=== PATIENT | female | born 1950 | race Caucasian/White ===

== ENCOUNTER 2020-06-20 06:10 | Outpatient (REF) | payer MEDICARE, SELFPAY | END 2020-06-20 06:11 | disposition home or self-care (01) | LOC: HO.LAB 06:10 | PROVIDERS: Visit Provider Internal Medicine | DX: Z20.828 Contact with and (suspected) exposure to other viral communicable diseases (principal) | CPT/HCPCS: C9803; U0003 ==

== ENCOUNTER 2020-11-19 16:26 | Outpatient (REF) | payer MEDICARE, SELFPAY ==
[2020-11-19 16:29] LABS: MANUAL DIFF FLAG NO
[2020-11-19 16:49] LABS: Basophils Percent Auto 0.6 % (0-2); Eosinophils Absolute Auto 0.1 X10*3/uL (0.0-0.4); Eosinophils Percent Auto 2.1 % (0-4); Hematocrit 39.5 % (37-47); Hemoglobin 13.1 g/dl (12.0-16.0); Imm Gran Abs Auto 0.02 X10*3/uL (0.00-0.03); Imm Gran Pct Auto 0.3 % (0.0-0.4); Lymphocytes Absolute Auto 2.1 X10*3/uL (1.2-4.9); Lymphocytes Percent Auto 30.5 % (20-40); Mean Corpuscular HGB Conc 33.2 g/dl (31.0-35.0); Mean Corpuscular Hemoglobin 30.4 pg (27.0-33.0); Mean Corpuscular Volume 91.6 fL (80-98); Mean Platelet Volume 9.9 fL (9.4-12.3); Monocytes Absolute Auto 0.5 X10*3/uL (0.1-1.2); Neutrophils Absolute Auto 3.9 X10*3/uL (2.0-8.3); Neutrophils Percent Auto 58.5 % (45-73); Platelet Count 275 X10*3/uL (160-400); Red Blood Count 4.31 X10*6/uL (4.20-5.50); White Blood Count 6.7 X10*3/uL (4.8-10.8)
[2020-11-19 16:57] LABS: Glucose Urine UA NEG (NEG); Leukocyte Esterase Urine NEG (NEG); Nitrite Urine NEG (NEG); Urine Blood NEG (NEG); Urine Ketones NEG (NEG); Urine Protein NEG (NEG-TRACE)
[2020-11-19 17:00] LABS: Appearance Urine CLEAR; Color Urine YELLOW
[2020-11-19 17:20] LABS: Alanine Aminotransferase 16 U/L (0-31); Albumin Level 4.5 g/dL (3.5-5.0); Alkaline Phosphatase 83 U/L (39-117); Anion Gap 14 (12-20); Aspartate Amino Transferase 22 U/L (5-31); Bilirubin Total 0.5 mg/dL (0.0-1.0); Blood Urea Nitrogen 18 mg/dL (9-16); Calcium 9.4 mg/dL (8.4-10.2); Carbon Dioxide 28 mmol/L (22-29); Chloride 100 mmol/L (96-108); Cholesterol 238 mg/dL; Estimated Glomerular Filt Rate > 60; Glucose Fasting 134 mg/dL (60-99); HDL Cholesterol 87 mg/dL; LDL Cholesterol Calculated 119 mg/dl; Sodium 139 mmol/L (135-145); Triglycerides 163 mg/dL
== END 2020-11-19 16:27 | disposition home or self-care (01) ==
LOC: HO.LNP 16:26
PROVIDERS: Visit Provider Internal Medicine
DX: Z00.00 Encounter for general adult medical examination without abnormal findings (principal); I10 Essential (primary) hypertension
CPT/HCPCS: 80053; 80061; 81003; 85025

== ENCOUNTER 2020-12-20 14:49 | Outpatient (REF) | payer MEDICARE, SELFPAY ==
[2020-12-20 15:28] LABS: Potassium 3.4 mmol/L (3.3-5.1)
== END 2020-12-20 14:50 | disposition home or self-care (01) ==
LOC: HO.LNP 14:49
PROVIDERS: Visit Provider Internal Medicine
DX: E87.6 Hypokalemia (principal)
CPT/HCPCS: 84132

== ENCOUNTER 2021-02-25 10:17 | Outpatient (REF) | payer MEDICARE, SELFPAY ==
[2021-02-25 11:56] LABS: Potassium 3.8 mmol/L (3.3-5.1)
== END 2021-02-25 10:18 | disposition home or self-care (01) ==
LOC: HO.LNP 10:17
PROVIDERS: Visit Provider Internal Medicine
DX: E87.6 Hypokalemia (principal)
CPT/HCPCS: 84132

== ENCOUNTER 2021-03-27 10:19 | Outpatient (REF) | payer MEDICARE, SELFPAY ==
[2021-03-27 10:35] LABS: Potassium 3.9 mmol/L (3.3-5.1)
== END 2021-03-27 10:20 | disposition home or self-care (01) ==
LOC: HO.LNP 10:19
PROVIDERS: Visit Provider Internal Medicine
DX: E87.6 Hypokalemia (principal)
CPT/HCPCS: 84132

== ENCOUNTER 2021-09-18 10:22 | Outpatient (REF) | payer MEDICARE, SELFPAY ==
[2021-09-18 10:26] LABS: MANUAL DIFF FLAG NO
[2021-09-18 11:35] LABS: Appearance Urine CLEAR; Color Urine YELLOW; Glucose Urine UA NEG (NEG); Leukocyte Esterase Urine NEG (NEG); Nitrite Urine NEG (NEG); PH 7.5 (5.0-8.0); Specific Gravity - Urine 1.015 (1.005-1.025); Urine Blood NEG (NEG); Urine Ketones NEG (NEG); Urine Protein NEG (NEG-TRACE)
[2021-09-18 11:42] LABS: Basophils Absolute Auto 0.1 X10*3/uL (0.0-0.2); Basophils Percent Auto 1.1 % (0-2); Eosinophils Absolute Auto 0.1 X10*3/uL (0.0-0.4); Eosinophils Percent Auto 2.2 % (0-4); Hematocrit 39.1 % (37.0-47.0); Hemoglobin 12.8 g/dl (12.0-16.0); Imm Gran Abs Auto 0.01 X10*3/uL (0.00-0.03); Imm Gran Pct Auto 0.2 % (0.0-0.4); Lymphocytes Absolute Auto 1.6 X10*3/uL (1.2-4.9); Lymphocytes Percent Auto 34.9 % (20-40); Mean Corpuscular HGB Conc 32.7 g/dl (31.0-35.0); Mean Corpuscular Hemoglobin 30.7 pg (27.0-33.0); Mean Corpuscular Volume 93.8 fL (80.0-98.0); Mean Platelet Volume 10.5 fL (9.4-12.3); Monocytes Absolute Auto 0.5 X10*3/uL (0.1-1.2); Monocytes Percent Auto 10.1 % (2-11); Neutrophils Absolute Auto 2.3 x10*3/uL (2.0-8.3); Neutrophils Percent Auto 51.5 % (45-73); Platelet Count 236 X10*3/uL (160-400); Red Blood Count 4.17 X10*6/uL (4.20-5.50); White Blood Count 4.6 X10*3/uL (4.8-10.8)
[2021-09-18 11:51] LABS: Alanine Aminotransferase 18 U/L (0-31); Alkaline Phosphatase 77 U/L (39-117); Anion Gap 11 (12-20); Aspartate Amino Transferase 19 U/L (5-31); Bilirubin Total 0.7 mg/dL (0.0-1.0); Blood Urea Nitrogen 29 mg/dL (9-16); Calcium 9.1 mg/dL (8.4-10.2); Carbon Dioxide 29 mmol/L (22-29); Chloride 104 mmol/L (96-108); Cholesterol 217 mg/dL; Estimated Glomerular Filt Rate > 60; Glucose Random 98 mg/dL (60-115); HDL Cholesterol 87 mg/dL; LDL Cholesterol Calculated 121 mg/dl; Potassium 4.6 mmol/L (3.3-5.1); Sodium 139 mmol/L (135-145); Total Protein 6.6 g/dL (6.5-8.0); Triglycerides 45 mg/dL
== END 2021-09-18 10:23 | disposition home or self-care (01) ==
LOC: HO.LNP 10:22
PROVIDERS: Visit Provider Internal Medicine
DX: Z00.00 Encounter for general adult medical examination without abnormal findings (principal); I10 Essential (primary) hypertension
CPT/HCPCS: 80053; 80061; 81003; 85025

== ENCOUNTER 2021-10-05 06:12 | Emergency (ER) | payer MEDICARE, SELFPAY ==
[2021-10-05 06:18] VITALS: BP 150/80; PULSE 80; RESP 14; TEMP 36.3; O2SAT 99; BMI 25.2
--- NOTE | 2021-10-05 07:49 | ED.EYEPROB ---
HPI - Eye Problem General Chief complaint: Eye Problems Stated complaint: Eye Issue Time Seen by Provider: 10/05/21 07:47 Source: patient Mode of arrival: ambulatory Limitations: no limitations History of Present Illness HPI Narrative: 71-year-old female came in for evaluation of spot of blood in the left eye. A friend noticed blood spot in the white part of her left eye, otherwise no visual blurriness, no double vision, no left eye pain, no fever, no chills, no recent trauma to the left eye, no sneezing, no coughing. Patient declined using any anticoagulation only take baby aspirin a day. Do not use contact length. Related Data Allergies Allergy/AdvReac Type Severity Reaction Status Date / Time No Known Allergies Allergy Verified 10/05/21 07:48 Review of Systems Review of Systems: All other systems are reviewed and are negative Constitutional: Reports as per HPI and Reports no additional constitutional complaints Eyes: Reports as per HPI and Reports no additional eye complaints Reports system reviewed and no additional complaints, except as documented Cardiovascular: Reports as per HPI and Reports no additional cardiovascular complaints Respiratory: Reports as per HPI and Reports no additional respiratory complaints Gastrointestinal: Reports as per HPI and Reports no additional gastrointestinal complaints Genitourinary: Reports no additional female genitourinary complaints Musculoskeletal: Reports no additional musculoskeletal complaints Skin/Breast: Reports system reviewed and no additional complaints, except as docu Psychiatric: Reports no additional psychiatric complaints Endocrine: Reports no additional endocrine complaints Hematologic/Lymphatic: Reports no additional hematologic/lymphatic complaints Allergic/Immunologic: Reports no additional allergic/immunologic complaints Reports system reviewed and no additional complaints, except as documented and Reports Abnormal speech present [facility] Past Medical History Surgical History History of hemorrhoidectomy Social History Social History Advance Directives: No Physical Exam Vital Signs: Vital Signs: Last Vital Signs Temp 97.4 F 10/05/21 06:18 Pulse 80 10/05/21 06:18 Resp 14 10/05/21 06:18 BP 150/80 H 10/05/21 06:18 Pulse Ox 99 10/05/21 06:18 BMI result Body Mass Index 25.2 Vital signs have been reviewed as appeared to be correct. Blood pressure normal. Heart rate normal. Respiration rate normal. Temperature normal. Oxygen saturation normal. Appearance: Alert. Oriented X3. No acute distress. Head: Normal external exam. Normocephalic. Atraumatic. No Hadley signs noted. No raccoon eyes noted Eyes: PERRLA. EOMI. Left eye with subconjunctival hemorrhage on the nasal side, left eye IOP is 12. Visual acuity on the left is 20/25. Right visual acuity 20/20. ENT: TM's Normal. Pharynx normal. Uvula midline. Moist mucous membranes. No trismus noted. No drooling noted. No muffled voice noted. Neck: Normal inspection. Neck supple. FROM. No adenopathy. Thyroid Normal. No meningeal signs. No neck mass noted. CVS: Normal heart rate and rhythm. Heart sound normal. No murmurs noted. Pulses normal throughout. Respiratory: No respiratory distress. Painless inspiration. Breath sounds normal. No wheezes/rales/rhonchi noted. Chest nontender. No accessory muscle usage noted or decreased air movement noted. Abdomen: Soft and nontender. Bowel sounds normal in all 4 quadrants. No distention noted. No organomegaly noted. No visible injury noted. Back: No CVA tenderness. Full range of motion noted. Skin: Skin warm and dry. Normal skin color. Normal skin turgor. No rashes/lesions/lacerations noted. Extremities: No lower extremity edema. Extremities exhibit normal range of motion. Extremities nontender. Neuro: Oriented X 3. Cranial nerve exam: II-XII are grossly intact No motor deficit. No sensory deficit. Reflexes normal. Course Course Course Narrative: Assessment and plan. 71-year-old female came in with left eye subconjunctival hemorrhage, patient is asymptomatic with normal visual acuity. Will reassure and discharged. Discharge Plan Discharge Clinical Impression: Subconjunctival hemorrhage Patient Disposition: Home, Self-Care Instructions: Subconjunctival Hemorrhage (ED) Referrals: Aneesh Montesinos MD [Primary Care Provider] -
[2021-10-05 07:55] VITALS: BP 156/88; PULSE 63; RESP 19; TEMP 36.8; O2SAT 97
== END 2021-10-05 08:05 | disposition home or self-care (01) ==
PROVIDERS: Emergency Provider Emergency Medicine; PCP Internal Medicine
DX: H11.32 Conjunctival hemorrhage, left eye (principal)
CPT/HCPCS: 99283; 99284

== ENCOUNTER 2021-11-25 10:25 | Outpatient (REF) | payer MEDICARE, SELFPAY ==
[2021-11-25 11:34] LABS: Blood Urea Nitrogen 18 mg/dL (9-16); Estimated Glomerular Filt Rate > 60
== END 2021-11-25 10:26 | disposition home or self-care (01) ==
LOC: HO.LNP 10:25
PROVIDERS: PCP Internal Medicine; Visit Provider Internal Medicine
DX: R79.9 Abnormal finding of blood chemistry, unspecified (principal)
CPT/HCPCS: 82565; 84520

== ENCOUNTER 2021-12-25 14:13 | Outpatient (REF) | payer MEDICARE, SELFPAY ==
--- NOTE | ~2021-12-25 | MM_ITS ---
EXAMINATION: MM SCREENING DIGITAL BREAST TOMOSYNTHESIS, BILATERAL CLINICAL INFORMATION: Screening. Asymptomatic. The lifetime risk of breast cancer based on the Tyrer-Cuzick Model is 3%. COMPARISON: Outside mammography: 12/08/2019, 09/14/2018, 09/13/2017 ([facility], [place], [place]). TECHNIQUE: Digital breast tomosynthesis is performed in both the craniocaudal and mediolateral oblique views along with computer-aided detection (CAD). Synthesized 2D images are generated from the tomosynthesis. FINDINGS: There are scattered areas of fibroglandular density (ACR BI-RADS breast composition Category b). There are no significant masses, abnormal calcifications, or other abnormalities. Parenchymal pattern is similar to prior outside exams. No developing density. Skin contours are smooth. MM/MM tomosynthesis screening BI IMPRESSION: No mammographic evidence of malignancy. ASSESSMENT: BI-RADS 1: Negative RECOMMENDATION: Routine annual mammography screening. This patient's information was entered into a reminder system with a target due date for their next mammogram.
== END 2021-12-25 14:14 | disposition home or self-care (01) ==
LOC: HO.MAMMO 14:13
PROVIDERS: PCP Internal Medicine; Visit Provider Internal Medicine
DX: Z12.31 Encounter for screening mammogram for malignant neoplasm of breast (principal)
CPT/HCPCS: 77063; 77067

== ENCOUNTER 2022-01-20 09:11 | Outpatient (REF) | payer MEDICARE, SELFPAY ==
--- NOTE | ~2022-01-20 | XR_ITS ---
EXAMINATION: XR CHEST CLINICAL INFORMATION: COVID-19 COMPARISON: None. TECHNIQUE: 2 views of the chest were obtained. FINDINGS: Clear lungs. No airspace consolidation or groundglass opacity or effusion. No hyperinflation. The heart is normal in size. The hilar and mediastinal contours and bony structures are unremarkable. XR/XR chest 2V IMPRESSION: Normal study.
== END 2022-01-20 09:12 | disposition home or self-care (01) ==
LOC: HO.XRAY 09:11
PROVIDERS: PCP Internal Medicine; Visit Provider Internal Medicine
DX: U07.1 COVID-19 (principal)
CPT/HCPCS: 71046

== ENCOUNTER 2022-09-24 11:47 | Outpatient (REF) | payer MEDICARE, SELFPAY ==
[2022-09-24 11:50] LABS: MANUAL DIFF FLAG NO
[2022-09-24 12:44] LABS: Basophils Absolute Auto 0.1 X10*3/uL (0.0-0.2); Basophils Percent Auto 1.3 % (0-2); Eosinophils Absolute Auto 0.1 X10*3/uL (0.0-0.4); Eosinophils Percent Auto 2.1 % (0-4); Hematocrit 40.5 % (37.0-47.0); Hemoglobin 13.2 g/dl (12.0-16.0); Imm Gran Abs Auto 0.02 X10*3/uL (0.00-0.03); Imm Gran Pct Auto 0.4 % (0.0-0.4); Lymphocytes Absolute Auto 1.7 X10*3/uL (1.2-4.9); Lymphocytes Percent Auto 32.2 % (20-40); Mean Corpuscular HGB Conc 32.6 g/dl (31.0-35.0); Mean Corpuscular Hemoglobin 30.7 pg (27.0-33.0); Mean Corpuscular Volume 94.2 fL (80.0-98.0); Mean Platelet Volume 10.6 fL (9.4-12.3); Monocytes Absolute Auto 0.5 X10*3/uL (0.1-1.2); Monocytes Percent Auto 9.8 % (2-11); Neutrophils Absolute Auto 2.8 x10*3/uL (2.0-8.3); Neutrophils Percent Auto 54.2 % (45-73); Platelet Count 238 X10*3/uL (160-400); Red Cell Distribution Width 12.3 % (11.0-16.0); White Blood Count 5.2 X10*3/uL (4.8-10.8)
[2022-09-24 13:05] LABS: Appearance Urine Clear; Color Urine Yellow; Glucose Urine UA Negative (Negative); Leukocyte Esterase Urine Negative (Negative); Nitrite Urine Negative (Negative); PH 5.5 (5.0-9.0); Specific Gravity - Urine >= 1.030 (1.005-1.025); Urine Blood Negative (Negative); Urine Ketones Negative (Negative); Urine Protein Negative (Neg-Trace)
[2022-09-24 13:13] LABS: Bacteria Urine None Seen (None Seen); Hyaline Casts Urine 0-2 /LPF (0-2); RBC Urine 0-2 /HPF (0-2); WBC Urine 0-5 /HPF (0-5)
[2022-09-24 13:15] LABS: Alanine Aminotransferase 18 U/L (0-31); Albumin Level 4.2 g/dL (3.5-5.0); Alkaline Phosphatase 104 U/L (39-117); Anion Gap 12 (12-20); Aspartate Amino Transferase 23 U/L (5-31); Bilirubin Total 0.8 mg/dL (0.0-1.0); Blood Urea Nitrogen 23 mg/dL (9-16); Calcium 9.1 mg/dL (8.4-10.2); Carbon Dioxide 28 mmol/L (22-29); Chloride 107 mmol/L (96-108); Cholesterol 264 mg/dL; Estimated Glomerular Filt Rate > 60; Glucose Fasting 102 mg/dL (60-99); HDL Cholesterol 116 mg/dL; LDL Cholesterol Calculated 135 mg/dl; Potassium 4.5 mmol/L (3.3-5.1); Sodium 142 mmol/L (135-145); Total Protein 6.7 g/dL (6.5-8.0); Triglycerides 68 mg/dL
== END 2022-09-24 11:48 | disposition home or self-care (01) ==
LOC: HO.LNP 11:47
PROVIDERS: Visit Provider Internal Medicine
DX: Z00.00 Encounter for general adult medical examination without abnormal findings (principal); I10 Essential (primary) hypertension
CPT/HCPCS: 80053; 80061; 81001; 85025

== ENCOUNTER 2022-11-25 13:33 | Outpatient (REF) | payer MEDICARE, SELFPAY ==
--- NOTE | ~2022-11-25 | XR_ITS ---
EXAMINATION: XR HIP, RIGHT CLINICAL INFORMATION: Pain in right hip Right hip pain, no injury COMPARISON: None available. TECHNIQUE: Two views of the right hip. FINDINGS: The bones are intact. No fracture. Alignment is anatomic. There is mild narrowing of the cartilage space of the right hip. There is subchondral sclerosis in the femoral head. The right SI joint is normal in appearance. There are mild degenerative changes of the pubic symphysis. Multiple calcifications in the pelvis are consistent with phleboliths XR/XR hip RT min 2V IMPRESSION: Mild osteoarthritis of the right hip.
== END 2022-11-25 13:34 | disposition home or self-care (01) ==
LOC: HO.XRAY 13:33
PROVIDERS: PCP Internal Medicine; Visit Provider Internal Medicine
DX: M25.551 Pain in right hip (principal)
CPT/HCPCS: 73502

== ENCOUNTER 2023-01-08 09:11 | Outpatient (REF) | payer MEDICARE, SELFPAY ==
--- NOTE | ~2023-01-08 | XR_ITS ---
EXAMINATION: XR LUMBOSACRAL SPINE CLINICAL INFORMATION: Lower back pain COMPARISON: None available. TECHNIQUE: Three views of the lumbosacral spine. FINDINGS: There is normal lumbar lordosis the vertebral heights, alignment and disc heights are normal. There is mild ventral spondylosis throughout lumbar spine no lytic or sclerotic process seen. The paravertebral soft tissues are normal. XR/XR lumbar spine 2-3V IMPRESSION: Mild ventral spondylosis. No visible acute fracture or dislocation seen.
== END 2023-01-08 09:12 | disposition home or self-care (01) ==
LOC: HO.XRAY 09:11
PROVIDERS: PCP Internal Medicine; Visit Provider Nurse Practitioner Family
DX: M54.50 Low back pain, unspecified (principal); M25.551 Pain in right hip
CPT/HCPCS: 72100

== ENCOUNTER 2023-06-07 09:24 | Day surgery (SDC) | payer MEDICARE, SELFPAY ==
[2023-06-03 13:26] VITALS: BMI 26.5
--- NOTE | 2023-06-04 09:14 | P.CONAN_ITS ---
Documented by User: Fernanda Larson NP 06/04/23 09:14 HPI - Anesthesia Eval Consult details Narrative: 73yo F for Colonoscopy [facility] Past Medical History Medical History Anxiety Depression HTN (hypertension) Surgical History Surgical History Hx of tubal ligation H/O colonoscopy History of hemorrhoidectomy Social History Social History (Updated 06/07/23 @ 10:11 by Laura Zimmerman MD) Alcohol intake: current Substance Use Type: Marijuana Meds Allergies Allergy/AdvReac Type Severity Reaction Status Date / Time No Known Allergies Allergy Verified 10/05/21 07:48 Home Medications Medication Instructions Recorded Confirmed Last Taken Type amlodipine 10 mg tablet 10 mg PO DAILY 06/03/23 06/03/23 Unknown History celecoxib 200 mg capsule 200 mg PO DAILY 06/03/23 06/03/23 Unknown History gabapentin 100 mg capsule 100 mg PO BID 06/03/23 06/03/23 Unknown History hydrochlorothiazide 25 mg tablet 25 mg PO QAM 06/03/23 06/03/23 Unknown History moexipril 15 mg tablet 30 mg PO DAILY 06/03/23 06/03/23 Unknown History paroxetine HCl 10 mg tablet 10 mg PO QAM 06/03/23 06/03/23 Unknown History potassium chloride 20 mEq 20 meq PO BID 06/03/23 06/03/23 Unknown History tablet,extended release(part/cryst) Exam Height,Weight and Vital Signs: Height 5 ft 2.5 in Weight 66.678 kg Assessment and Plan Assessment Anesthesia Assessment: Chart Reviewed Documented by User: Laura Zimmerman MD 06/07/23 10:16 [facility] Active Problems Active Problems: Right lower extremity sciatica and neuropathy Past Medical History Medical History Anxiety Depression HTN (hypertension) Family History Family history of problems with anesthesia: No Surgical History Surgical History Hx of tubal ligation H/O colonoscopy History of hemorrhoidectomy History of Problems with Anesthesia: No Social History Social History (Updated 06/07/23 @ 10:11 by Laura Zimmerman MD) Alcohol intake: current Substance Use Type: Marijuana Meds Allergies Allergy/AdvReac Type Severity Reaction Status Date / Time No Known Allergies Allergy Verified 10/05/21 07:48 Home Medications Medication Instructions Recorded Confirmed Last Taken Type amlodipine 10 mg tablet 10 mg PO DAILY 06/03/23 06/03/23 Unknown History celecoxib 200 mg capsule 200 mg PO DAILY 06/03/23 06/03/23 Unknown History gabapentin 100 mg capsule 100 mg PO BID 06/03/23 06/03/23 Unknown History hydrochlorothiazide 25 mg tablet 25 mg PO QAM 06/03/23 06/03/23 Unknown History moexipril 15 mg tablet 30 mg PO DAILY 06/03/23 06/03/23 Unknown History paroxetine HCl 10 mg tablet 10 mg PO QAM 06/03/23 06/03/23 Unknown History potassium chloride 20 mEq 20 meq PO BID 06/03/23 06/03/23 Unknown History tablet,extended release(part/cryst) Exam Height,Weight and Vital Signs: Height 5 ft 2.5 in Weight 66.678 kg Vital Signs Temp Pulse Resp BP Pulse Ox O2 Del Method 06/07/23 10:05 97.8 F 66 16 130/67 95 Room Air Airway Mallampati Class: II TM Dist: >3cm Neck ROM: Full Loose/Missing/Broken Teeth: No (Denies broken, loose, missing teeth) Heart: RRR Lungs: CTAB Assessment and Plan Assessment Anesthesia Assessment: Anesthesia Plan Discussed Final Anesthetic Review Family History of Problems with Anesthesia: No History of Problems with Anesthesia: No NPO: Yes ASA Class: II Final Preanesthetic Review: No Changes in Pt Med Stat, Meds/Allgs Chart Reviewed, Consent Obtained/Reviewed and Anes Risks/Benef Reviewed Patient Risk: Low Procedure Risk: Low Assessment/Block/Sedation in SS: Assess/Block/Sedation-SS Anesthetic Plan Anesthetic Plan: MAC: Disposition: Standard PACU
[2023-06-07 10:05] VITALS: BP 130/67; PULSE 66; RESP 16; TEMP 36.6; O2SAT 95; BMI 25.5
--- NOTE | 2023-06-07 11:55 | P.BOP_ITS ---
Brief Operative Note Date of Service: 06/07/23 Pre-op diagnosis: Screening Post-op diagnosis: other (Diverticulosis) Procedure: Colonoscopy to the cecum and TI Surgeon: Daniele Palacio MD Anesthesia: MAC Was an Information Technology Coordinator used for this Procedure?: No Estimated blood loss (mL): 0 Pathology: none sent Condition: stable Disposition: PACU
[2023-06-07 11:58] VITALS: BP 114/53; PULSE 71; RESP 16; TEMP 36.5; O2SAT 98
[2023-06-07 12:13] VITALS: BP 123/62; PULSE 58; RESP 16; TEMP 36.5; O2SAT 95
--- NOTE | 2023-06-07 12:19 | OP_ITS ---
DATE OF SERVICE: 06/07/2023 SURGEON: Daniele Palacio MD INDICATIONS: The patient presents for evaluation of colorectal cancer screening. Full consent has been obtained from her for this, including risks of bleeding and perforation. PREOPERATIVE DIAGNOSIS: Colorectal cancer screening. POSTOPERATIVE DIAGNOSIS: PROCEDURE PERFORMED: Colonoscopy to cecum and terminal ileum. ESTIMATED BLOOD LOSS: COMPLICATIONS: ANESTHESIA: Monitored anesthesia care. ASSISTANTS: SPECIMENS: POSTOPERATIVE DIAGNOSES: Colorectal cancer screening, sigmoid diverticulosis, and internal hemorrhoids. DESCRIPTION OF PROCEDURE: The patient was placed in the left lateral decubitus position. The digital rectal exam revealed no abnormalities. The Olympus video pediatric colonoscope was entered into the rectum and advanced easily to the cecum. Once in the cecum, I did identify normal-appearing cecal pouch with appendiceal orifice and a normal-appearing ileocecal valve. The terminal ileum was cannulated and appeared normal. Scope was withdrawn back in the colon. The entire cecum and ileocecal valve appeared normal. The scope was slowly withdrawn assessing all mucosal surfaces carefully. Preparation was excellent. I did not visualize any sign of polyps, colitis, nor angiodysplasia. There was a mild amount of sigmoid diverticulosis. In the rectum, scope was retroflexed visualizing internal hemorrhoids, but no other pathology. The rectal mucosa appeared normal. The scope was straightened and withdrawn from the patient. She tolerated the procedure well and was returned to the recovery area in stable condition. IMPRESSION: 1. Sigmoid diverticulosis. 2. Internal hemorrhoids. PLAN: Given her negative exam, 2 previous negative colonoscopies, and no family history of colon cancer, as well as her age of 72, I do not think she will need any further screening colonoscopies. As such, she will see me again on a p.r.n. basis. I did advise her to certainly call if she has any problems or questions that I can be of assistance with. MD FERNANDO Sher/BLAIR / [phone]
[2023-06-07 12:29] VITALS: BP 120/65; PULSE 64; RESP 16; TEMP 37; O2SAT 98
== END 2023-06-07 12:48 | disposition home or self-care (01) ==
PROVIDERS: PCP Internal Medicine; Visit Provider Internal Medicine
PROC: 0DJD8ZZ Inspection of Lower Intestinal Tract, Via Natural or Artificial Opening Endoscopic (ICD-10-PCS; CPT 45378; principal; 2023-06-07 10:30)
DX: Z12.11 Encounter for screening for malignant neoplasm of colon (principal); K57.30 Diverticulosis of large intestine without perforation or abscess without bleeding; K64.8 Other hemorrhoids; I10 Essential (primary) hypertension; Z98.51 Tubal ligation status; Z79.899 Other long term (current) drug therapy
CPT/HCPCS: G0121; J2704

== ENCOUNTER 2023-11-12 07:10 | Outpatient (REF) | payer MEDICARE, SELFPAY ==
--- NOTE | ~2023-11-12 | MM_ITS ---
EXAMINATION: MM SCREENING DIGITAL BREAST TOMOSYNTHESIS, BILATERAL CLINICAL INFORMATION: Screening. Asymptomatic. COMPARISON: Outside mammography: 12/25/2021, 12/08/2019, 09/14/2018, 09/13/2017 ([facility], [place], [place]). TECHNIQUE: Digital breast tomosynthesis is performed in both the craniocaudal and mediolateral oblique views along with computer-aided detection (CAD). Synthesized 2D images are generated from the tomosynthesis. FINDINGS: There are scattered areas of fibroglandular density (ACR BI-RADS breast composition Category b). There are no suspicious masses, suspicious grouped calcifications, or areas of architectural distortion in either breast. The parenchymal pattern is stable from prior exams. No suspicious skin or axillary abnormalities. MM/MM tomosynthesis screening BI IMPRESSION: No mammographic evidence of malignancy. No significant interval change. ASSESSMENT: BI-RADS BI-RADS 1 - Negative RECOMMENDATION: Routine annual mammography screening. 1 year F/U This examination should not preclude the clinical evaluation of a suspicious palpable abnormality. This patient's information was entered into a reminder system with a target due date for their next mammogram.
== END 2023-11-12 07:11 | disposition home or self-care (01) ==
LOC: HO.MAMMO 07:10
PROVIDERS: PCP Internal Medicine; Visit Provider Internal Medicine
DX: Z12.31 Encounter for screening mammogram for malignant neoplasm of breast (principal)
CPT/HCPCS: 77063; 77067

== ENCOUNTER → 2023-11-12 07:30 | Outpatient (BNV) | payer MEDICARE, SELFPAY | PROVIDERS: PCP Internal Medicine; Visit Provider Radiology Diagnostic Radiology | DX: Z12.31 Encounter for screening mammogram for malignant neoplasm of breast (principal) | CPT/HCPCS: 77063; 77067 ==

== ENCOUNTER 2024-08-18 11:28 | Outpatient (REF) | payer MEDICARE, SELFPAY ==
[2024-08-18 11:31] LABS: MANUAL DIFF FLAG NO
[2024-08-18 11:42] LABS: Basophils Absolute Auto 0.1 X10*3/uL (0.0-0.2); Basophils Percent Auto 1.1 % (0-2); Eosinophils Absolute Auto 0.1 X10*3/uL (0.0-0.4); Hematocrit 39.7 % (37.0-47.0); Hemoglobin 13.6 g/dl (12.0-16.0); Imm Gran Abs Auto 0.01 X10*3/uL (0.00-0.03); Imm Gran Pct Auto 0.2 % (0.0-0.4); Lymphocytes Absolute Auto 1.5 X10*3/uL (1.2-4.9); Lymphocytes Percent Auto 27.9 % (20-40); Mean Corpuscular HGB Conc 34.3 g/dl (31.0-35.0); Mean Corpuscular Hemoglobin 31.6 pg (27.0-33.0); Mean Corpuscular Volume 92.3 fL (80.0-98.0); Mean Platelet Volume 10.3 fL (9.4-12.3); Monocytes Absolute Auto 0.7 X10*3/uL (0.1-1.2); Monocytes Percent Auto 11.9 % (2-11); Neutrophils Absolute Auto 3.1 x10*3/uL (2.0-8.3); Neutrophils Percent Auto 56.9 % (45-73); Platelet Count 224 X10*3/uL (160-400); Red Cell Distribution Width 12.3 % (11.0-16.0); White Blood Count 5.5 X10*3/uL (4.8-10.8)
[2024-08-18 12:04] LABS: Alanine Aminotransferase 19 U/L (0-31); Albumin Level 4.1 g/dL (3.5-5.0); Alkaline Phosphatase 78 U/L (39-117); Anion Gap 10 (12-20); Aspartate Amino Transferase 29 U/L (5-31); Bilirubin Total 0.7 mg/dL (0.0-1.0); Blood Urea Nitrogen 21 mg/dL (9-16); Carbon Dioxide 27 mmol/L (22-29); Chloride 107 mmol/L (96-108); Cholesterol 241 mg/dL (<200); Estimated Glomerular Filt Rate > 60; Glucose Fasting 93 mg/dL (60-99); HDL Cholesterol 97 mg/dL (>40); LDL Cholesterol Calculated 126 mg/dL (<100); Potassium 3.5 mmol/L (3.3-5.1); Sodium 140 mmol/L (135-145); Total Protein 7.4 g/dL (6.5-8.0); Triglycerides 93 mg/dL (<150)
--- OUTSIDE RECORDS SUMMARY | 2024-08-18 13:43 | XMS_ITS | Patient Health Record ---
Author Organization Aneesh Montesinos MD Address [address] [place] [id number] Care Team Providers Care Rn Telemetry Name Role Phone Aneesh Montesinos Primary Care Provider [phone] Allergies No Known Allergies Results Component Value Reference Range Notes MM tomosynthesis screening B I Reviewed date:11/23/2023 12:16:26 PM Interpretation: Performing Lab: Notes/Report: [address] [place] [address] Mammography Report Signed Patient: Destiny Oshea MR#: [id number] : 1950 Acct:[id number] Age/Sex: 73 / F ADM Date: 11/12/23 Loc: HO.MAMMO Attending Dr: Aneesh Montesinos MD Ordering Physician: Aneesh Montesinos MD Results: 1Ne gative Date of Service: 11/12/23 Follow Up: 1 Year From Orig ina Mammogram Procedure(s): MM tomosynthesis screening BI Accession Number(s): [id number] cc: Aneesh Montesinos MD EXAMINATION: MM SCREENING DIGITAL BREAST TOMOSYNTHESIS, BILATERAL CLINICAL INFORMATION: Screening. Asymptomatic. COMPARISON: Outside mammography: 12/25/2021, 12/08/2019, 09/14/2018, 09/13/2017 ([facility], [place], [place]). TECHNIQUE: Digital breast tomosynthesis is performed in both the craniocaudal and mediolateral oblique views along with computer-aided detection (CAD). Synthesized 2D images are generated from the tomosynthesis. FINDINGS: There are scattered areas of fibroglandular density (ACR BI-RADS breast composition Category b). There are no suspicious masses, suspicious grouped calcifications, or areas of architectural distortion in either breast. The parenchymal pattern is stable from prior exams. No suspicious skin or axillary abnormalities. MM/MM tomosynthesis screening BI IMPRESSION: No mammographic evidence of malignancy. No significant interval change. ASSESSMENT: BI-RADS BI-RADS 1 - Negative RECOMMENDATION: Routine annual mammography screening. 1 year F/U This examination should not preclude the clinical evaluation of a suspicious palpable abnormality. This patient's information was entered into a reminder system with a target due date for their next mammogram. Dictated By: Samson Ramos MD Signed By: <Electronically signed by Samson Ramos MD in OV> 11/22/23 1011 DD/ 0735 TD/TT: V Belt Inspector: [place] [address] [place] [address] Mammography Report Signed Patient: Winnie Oshea MR#: [id number] : 1950 Acct:[id number] Age/Sex: 73 / F ADM Date: 11/12/23 Loc: HO.MAMMO Attending Dr: Aneesh Montesinos MD Ordering Physician: Aneesh Montesinos MD Results: 1Ne gative Date of Service: 11/12/23 Follow Up: 1 Year From Orig ina Mammogram Procedure(s): MM tomosynthesis screening BI Accession Number(s): [id number] cc: Aneesh Montesinos MD EXAMINATION: MM SCREENING DIGITAL BREAST TOMOSYNTHESIS, BILATERAL CLINICAL INFORMATION: Screening. Asymptomatic. COMPARISON: Outside mammography: 12/25/2021, 12/08/2019, 09/14/2018, 09/13/2017 ([facility], [place], [place]). TECHNIQUE: Digital breast tomosynthesis is performed in both the craniocaudal and mediolateral oblique views along with computer-aided detection (CAD). Synthesized 2D image s are generated from the tomosynthesis. FINDINGS: There are scattered areas of fibroglandular density (ACR BI-RADS breast composition Category b). There are no suspici ous masses, suspicious grouped calcifications, or areas of architectur al distortion in either breast. The parenchymal pattern is stable fr om prior exams. No suspicious skin or axillary abnormalities. MM/MM tomosynthesis screening BI IMPRESSION: No mammographic evidence of malignancy. No significant interval change. ASSESSMENT: BI-RADS BI-RADS 1 - Negative RECOMMENDATION: Routine annual mammography screening. 1 year F/U This examination mary beth uld not preclude the clinical evaluation of a suspicious palpable abnormality. This patient's information was entered into a reminder system with a target due date for their next mammogram. Dictated By: Samson Ramos MD Signed By: <Electronically signed by Samson Ramos MD in OV> 11/22/23 1011 DD/ 0735 TD/TT: V Belt Inspector: Erika Lenz Panel Fa st (Not yet reviewed by provider) Interpretation: Performing Lab:[address] [id number] Notes/Report: Sodium 140 135-145 mmol/L Potassium 3.5 3.3-5.1 mmol/L Chloride 107 96-108 mmol/L Carbon Dioxide 27 22-29 mmol/L Anion Gap 10 12-20 Blood Urea Nitrogen 21 9-16 mg/dL Creatinine 0.64 0.5-1.4 mg/dL Estimated Glomerular Filt Rate > 60 Chronic Kidney Disease: Estimated GFR < 60 mL/min/1.73m2 Severe Kidney Disease: Estimated GFR < 15 mL/min/1.73m2 Glucose Fasting 93 60-99 mg/dL Calcium 9.0 8.4-10.2 mg/dL Bilirubin Total 0.7 0.0-1.0 mg/dL Aspartate Amino Transferase 29 5-31 U/L Alanine Aminotransferase 19 0-31 U/L Total Protein 7.4 6.5-8.0 g/dL Albumin Level 4.1 3.5-5.0 g/dL Alkaline Phosphatase 78 39-117 U/L Complete Blood Count Auto Di ff Reviewed date:08/18/2024 12:40:10 PM Interpretation: Performing Lab:[address] [id number] Notes/Report: White Blood Count 5.5 4.8-10.8 X10*3/uL Red Blood Count 4.30 4.20-5.50 X10*6/uL Hemoglobin 13.6 12.0-16.0 g/dl Hematocrit 39.7 37.0-47.0 % Mean Corpuscular Volume 92.3 80.0-98.0 fL Mean Corpuscular Hemoglobin 31.6 27.0-33.0 pg Mean Corpuscular HGB Conc 34.3 31.0-35.0 g/dl Red Cell Distribution Width 12.3 11.0-16.0 % Platelet Count 224 160-400 X10*3/uL Mean Platelet Volume 10.3 9.4-12.3 fL Neutrophils Percent Auto 56.9 45-73 % Imm Gran Pct Auto 0.2 0.0-0.4 % Lymphocytes Percent Auto 27.9 20-40 % Monocytes Percent Auto 11.9 2-11 % Eosinophils Percent Auto 2.0 0-4 % Basophils Percent Auto 1.1 0-2 % NRBC Pct Auto 0.0 0.0-0.2 /100WBC Neutrophils Absolute Auto 3.1 2.0-8.3 x10*3/u L Imm Gran Abs Auto 0.01 0.00-0.03 X10*3/uL Lymphocytes Absolute Auto 1.5 1.2-4.9 X10*3/u L Monocytes Absolute Auto 0.7 0.1-1.2 X10*3/uL Eosinophils Absolute Auto 0.1 0.0-0.4 X10*3/u L Basophils Absolute Auto 0.1 0.0-0.2 X10*3/uL NRBC Abs Auto 0.000 0.0-0.012 X10*3/uL Lipid Panel Reviewed date:08/18/2024 12:34:23 PM Interpretation: Performing Lab:[facility], [address] [place] [id number] Notes/Report: Triglycerides 93 <150 mg/dL Desirable Triglyceride: less than 150 mg/dL Borderline High Triglyceride 150-199 mg/dL High Triglyceride: 200-499 mg/dL Very High Triglyceride: greater than or equal to 5OO mg/dL Cholesterol 241 <200 mg/dL Desirable Cholesterol: less than 200 mg/dL Borderline High Cholesterol: 200-239 mg/dL High Cholesterol: greater than 239 mg/dL LDL Cholesterol Calculated 126 <100 mg/dL Desirable LDL: less than 100 mg/dL Near Optimal/Above Optimal LDL: 110-129 mg/dL Borderline High LDL: 130-159 mg/dL High LDL: 160-189 mg/dL Very High LDL: greater than or equal to 190 mg/dL HDL Cholesterol 97 >40 mg/dL Desirable HDL: greater than 40 mg/dL Note: This HDL assay may give artificially low results in patients with liver disease. Reason For Referral Reason loud snorning Diagnosis 1 Loud snoring (R06.83 ) Referral Organization Aneesh Montesinos MD Referring Provider First Name Aneesh Referring Provider Last Name Jaguar Referring Provider Speciality Internal M edicine Referred Provider Sleep Medicine, Serv ices Referred Provider Specialty Sleep Medici ne General Notes , Rosario Fung 09/20/2023 02:52:09 PM EDT > info faxed , Rosario Fung 09/28/2023 10:52:48 AM EDT > info refaxed , Rosario Fung 10/18/2023 09:42:08 AM EDT > left message for a called back , Rosario Fung 10/19/2023 03:39:39 PM EDT > [facility] office [address], Rosario Fung 10/21/2023 11:10:52 AM EDT > info mailed to patient Referral Priority Routine Referral Appointment Date 01/05/2024 Medications Medication SIG (Take, Route, Frequency, Duration) Notes Start Date End Date Status amLODIPine Besylate 10 MG TAKE 1 TABLET BY MOUTH EVERY DAY Orally Active PARoxetine HCl 20 MG take 1tablet by ngoc th every day in the morning Orally Once a day Active Valsartan 160 MG TAKE 1 TABLET BY MOUTH DAILY for 30 Active Potassium Chloride Frida ER 2 0 MEQ TAKE 1 TABLET BY MOUTH TWICE DAILY WITH FOOD for 90 Active hydroCHLOROthiazide 25 MG TAKE 1 TABLET BY MOUTH EVERY DAY IN THE MORNING Active Cyclobenzaprine HCl 10 MG 1 tablet at be dtime as needed Orally Once a day for 30 day(s) Unknown Tylenol 8 Hour Arthritis Bhupinder n 650 MG 2 tablets as needed Orally every 8 hrs Unknown CeleBREX 200 MG 1 capsule with food Orally Once a day for 30 day(s) 12/14/2022 Unknown Immunizations Vaccine Route Administration Date Status Comme nts SARS-COV-2 Pfizer Unknown 09/24/2020 Administered SARS-COV-2 Pfizer Unknown 09/10/2020 Administered Influenza High Dose IM Intramuscular 03/03/2021 Administer ed SARS-COV-2 Moderna Unknown 05/22/2021 Administered Influenza High Dose Unknown 03/30/2022 Administered Influenza High Dose IM Intramuscular 03/23/2023 Administer ed Social History Tobacco Use: Social History Observation Description Date Details (start date - stop date) Never Smoker NA - NA Tobacco Use/Smoking Question Answer Notes Patient is a nonsmoker Additional Findings: Tobacco Non-User Cu rrent non-smoker, currently using no form of tobacco Alcohol Screen Question Answer Notes Did you have a drink contain ing alcohol in the past year? Yes How often did you have a dri nk containing alcohol in the past year? 4 or more times a week (4 points) How many drinks did you have on a typical day when you were drinking in the past year? 1 or 2 drinks (0 point) How often did you have 6 or more drinks on one occasion in the past year? Never (0 point) Points 4 Interpretation Positive Problems Problem Type SNOMED Code ICD Code Onset Dates Problem Status W/U Status Risk Notes Problem 211750279407621 Primary osteoarthritis, right hand (M19.041) Active confirmed Problem 060905073 Lumbar disc disease (M51.9) Active confirmed Problem 87629622 Essential hypertension (I10) Active confirmed Problem 41590771 Dysthymia (F34.1) Active confirmed Problem 15044491 Sciatica of right side (M54.31) Active confirmed Problem 60920110 Peptic ulcer disease (K27.9) Active confirmed Problem 10252580 Uncontrolled hypertension (I10) Active confirmed Problem 13132024 Hip arthritis (M16.10) Active confirmed Problem 257536141 Cervical arthritis (M47.812) Active confirmed Vital Signs Blood pressure diastolic 72 mm Hg 05/25/2024 Height 62.5 in 05/25/2024 Blood pressure systolic 128 mm Hg 05/25/2024 Weight 152 lbs 05/25/2024 BMI 27.36 kg/m2 05/25/2024 Encounters Encounter Location Date Provider Diagnosis Aneesh Montesinos MD [address] [place] [address] Drive [address] [place] [id number] 08/18/2024 Aneesh Montesinos Blood tests for routine general physical examination Z00.00 and Essential hypertension I10 Aneesh Montesinos MD [address] [place] [address] Drive [address] [place] [id number] 08/30/2023 Aneesh Montesinos Dysthymia F34.1 and Hip arthritis M16.10 Aneesh Montesinos MD [address] [place] [id number] 02/24/2024 Aneesh Montesinos Dysthymia F34.1 ; Essential hypertension I10 and Hip arthritis M16.10 Aneesh Montesinos MD [address] [place] [id number] 05/25/2024 Aneesh Montesinos Essential hypertension I10 Aneesh Montesinos MD [address] [place] [id number] 01/13/2024 Aneesh Montesinos MD [address] [place] [id number] 06/22/2024 Aneesh Montesinos Assessments Encounter Date Diagnosis (ICD Code) Assessment Notes Treatment Notes Treatment Clinical Notes Section Notes 08/18/2024 Blood tests for routine general physical examination (ICD-10 - Z00.00) 08/30/2023 Dysthymia (ICD-10 - F34.1) complete 08/30/2023 Hip arthritis (ICD-10 - M16.10) going to have a replacement 02/24/2024 Dysthymia (ICD-10 - F34.1) doing well since hip was replaced 02/24/2024 Essential hypertension (ICD-10 - I10) well controlled 05/25/2024 Essential hypertension (ICD-10 - I10) doing well on meds 08/18/2024 Essential hypertension (ICD-10 - I10) 02/24/2024 Hip arthritis (ICD-10 - M16.10) was replaced and is doing well 05/25/2024 Other patient has never been diagnosed with sleep apnea, has never had a sleep study, and doesn't use a cpap machine Plan Of Treatment Pending Test Test Name Order Date XR CHEST 2 VIEW PA & LAT 01/19/2022 XR GI SERIES 05/21/2023 Comprehensive [place]. Panel Fast UA ClnCatch+Micro w/rflx Cult 08/18/2024 Next Appt Details Provider Name:Aneesh fang, 08/25/2024 08:30:00 AM, [address] [facility], Suite [facility], [place], [place], [phone], Insurance Providers Payer Name Payer Address Payer Phone Subscriber Number Group Number Insured Name Patient Relationship to Insured Coverage Start Date Coverage End Date [facility] are [employer] [address] [address] [place] [address] [id number] Destiny Oshea Self - patient is the insured Medical (General) History Medical History History ICD Code moexital if univasc is an helen inhibitor 06/07/23 colonoscopy, no more required
--- OUTSIDE RECORDS SUMMARY | 2024-08-18 13:43 | XMS_ITS | Patient Health Record ---
Author Organization [facility] Address [address] [place] [address] Care Team Providers Care Heating Unit Mechanic Name Role Phone Jaguar VALENZUELA, Aneesh Primary Care Provider Daniele Ward Unavailable [phone] ALLERGIES No Known Allergies REASON FOR REFERRAL No Information MEDICATIONS Medication SIG (Take, Route, Frequency, Duration) Notes Start Date End Date Status Ibuprofen 800 MG Oral for 30 N ot-Taking Potassium Chloride Frida ER 20 MEQ TAKE 1 TABLET BY MOUTH TWICE DAILY WITH FOOD Oral for 90 Active Moexipril HCl 15 MG TAKE 2 TABLETS BY MOUTH EVERY DAY Oral for 90 Active Gabapentin 100 MG Oral for 30 stopping as of 03/19/23 Active hydroCHLOROthiazide 25 MG TAKE 1 TABLET BY MOUTH EVERY DAY IN THE MORNING Oral for 90 Active amLODIPine Besylate 5 MG TAKE 1 TABLET B Y MOUTH EVERY DAY Oral for 90 Active Celecoxib 200 MG TAKE 1 CAPSULE BY MOUTH EVERY DAY WITH FOOD Oral for 30 stopping as of 03/19/23 Active PARoxetine HCl 20 MG TAKE 1 TABLET BY MOUTH EVERY DAY IN THE MORNING Oral for 60 F341,Unavailab le Active IMMUNIZATIONS Vaccine Route Administration Date Status Comme nts Influenza Unknown 03/10/2022 Administered SOCIAL HISTORY Tobacco Use: Social History Observation Description Date Details (start date - stop date) Never Smoker NA - NA Sex Assigned At : Social History Observation Description Sex Assigned At Unknown Tobacco Use/Smoking Question Answer Notes Patient is a nonsmoker Alcohol Screen Question Answer Notes Did you [...] Never (0 point) Points 4 Interpretation Positive PROBLEMS Problem Type ICD Code Onset Dates Problem Status W/U Status Risk SNOMED Code Notes Problem Colon cancer screening (Z12.11) Active confirmed 653116634 Problem Diverticulosis of large intestine without perforation or abscess without bleeding (K57.30) Active confirmed Diverticul ar disease of colon (060119489) Problem Preprocedural examination (Z01.818) Active confirmed [id number] PLAN OF TREATMENT Future Test Test Name Order Date COLONOSCOPY 03/17/2023 Insurance Providers Payer Name Payer Address Payer Phone Subscriber Number Group Number Insured Name Patient Relationship to Insured Coverage Start Date Coverage End Date [employer] Adv (PPO) [address] [address] [place] [phone] [id number] STEPH MARRERO Self - patient is the insured MEDICAL (GENERAL) HISTORY Medical History History ICD Code HTN Anxiety/depression Denies MS,DM,CVA,Lung disease,renal dise ase Negative colonoscopies at age 52 and age 62 in [place], [place] Back and right hip pain Surgical History Surgery Date(Month/Year) BTL
--- OUTSIDE RECORDS SUMMARY | 2024-08-18 13:43 | XMS_ITS ---
Author Organization Aneesh Montesinos MD Address [address] [place] [phone] Care Team Providers Care Refuse Laborer Name Role Phone Aneesh Montesinos Primary Care Provider [phone] Allergies No Known Allergies REASON FOR VISIT discuss sleep study Medications Medication SIG (Take, Route, Frequency, Duration) Notes Start Date End Date Status Valsartan 160 MG 1 tablet Orally Once a day 01/13/2024 Active amLODIPine Besylate 10 MG TAKE 1 TABLET BY MOUTH EVERY DAY Orally Active Cyclobenzaprine HCl 10 MG 1 tablet at be dtime as needed Orally Once a day for 30 day(s) Unknown Tylenol 8 Hour Arthritis Bhupinder n 650 MG 2 tablets as needed Orally every 8 hrs Unknown CeleBREX 200 MG 1 capsule with food Orally Once a day for 30 day(s) 12/14/2022 Unknown PARoxetine HCl 20 MG take 1tablet by every day in the morning Orally Once a day Active hydroCHLOROthiazide 25 MG TAKE 1 TABLET BY MOUTH EVERY DAY IN THE MORNING Active Potassium Chloride Frida ER 2 0 MEQ TAKE 1 TABLET BY MOUTH TWICE DAILY WITH FOOD for 90 Active Vital Signs Blood pressure systolic 128 mm Hg 05/25/20 24 Blood pressure diastolic 72 mm Hg 024 Height 62.5 in 05/25/2024 Weight 152 lbs 05/25/2024 BMI 27.36 kg/m2 05/25/2024 Encounters Encounter Location Date Provider Diagnosis Aneesh Montesinos MD [address] [place], [place] [phone] 05/25/2024 Aneesh Montesinos Essential hypertension I10 Assessments Encounter Date Diagnosis (ICD Code) Assessment Notes Treatment Notes Treatment Clinical Notes Section Notes 05/25/2024 Essential hypertension (ICD-10 - I10) doing well on meds 05/25/2024 Other patient has never been diagnosed with sleep apnea, has never had a sleep study, and doesn't use a cpap machine Plan Of Treatment Treatment Notes Assessment Notes Essential hypertension doing well on med s Other patient has never be en diagnosed with sleep apnea, has never had a sleep study, and doesn't use a cpap machine Next Appt Details Provider Name:Aneesh Rubio ier, 08/25/2024 08:30:00 AM, [address] [facility], [address], [place], [place], [phone], Progress Notes * Destiny OSHEA LDOB:[birth year] (74 yo F)Acc No.[id number]:05/25/2024 Progress Notes Patient:?AlexandriaDestiny Max Provider:?Aneesh Montesinos MD :1950???Age:74 Y???Sex:Female D ate:05/25/2024 Address: [facility] Subjective: * Chief Complaints: * ???Discuss sleep study * HPI: ???Symptom(s):? patient is a 74 yo female here for follow up of sleep study.. is trying to get health insurance/ patient never had sleep study and was never diagnosed with sleep apnea. * ROS:?General/Constitutional:?Denies?Chills.?Denies?Fatigue.?Denies?Fever.?Denies?Headache.?ENT:?Patient denies?decreased sense of smell , any loss of taste , sore throat.?Denies?Sore throat.?Respiratory:?Denies?Cough.?Denies?Shortness of breath at rest.?Denies?Shortness of breath with exertion.?Gastrointestinal:?Denies?Diarrhea.?Denies?Nausea.?Musculoskeletal:?Patient denies?muscle aches.?Peripheral Vascular:?Patient denies?red and blue toes.? * Medical History:? * Surgical History:? * Hospitalization/Major Diagno stic Procedure:? * Medications:?TakingPotassium Chloride Frida ER 20 MEQ Tablet Extended Release TAKE 1 TABLET BY MOUTH TWICE DAILY WITH FOOD hydroCHLOROthiazide 25 MG Tablet TAKE 1 TABLET BY MOUTH EVERY DAY IN THE MORNING PARoxetine HCl 20 MG Tablet take 1tablet by mouth every day in the morning Orally Once a dayamLODIPine Besylate 10 MG Tablet TAKE 1 TABLET BY MOUTH EVERY DAY Orally Valsartan 160 MG Tablet 1 tablet Orally Once a dayTaking Potassium Chloride Frida ER 20 MEQ Tablet Extended Release TAKE 1 TABLET BY MOUTH TWICE DAILY WITH FOOD Taking hydroCHLOROthiazide 25 MG Tablet TAKE 1 TABLET BY MOUTH EVERY DAY IN THE MORNING Taking PARoxetine HCl 20 MG Tablet take 1tablet by mouth every day in the morning Orally Once a dayTaking amLODIPine Besylate 10 MG Tablet TAKE 1 TABLET BY MOUTH EVERY DAY Orally Taking Valsartan 160 MG Tablet 1 tablet Orally Once a dayDiscontinuedGabapentin 100 MG Capsule 1 capsule Orally twice a dayDiscontinued Gabapentin 100 MG Capsule 1 capsule Orally twice a dayUnknownCeleBREX 200 MG Capsule 1 capsule with food Orally Once a dayTylenol 8 Hour Arthritis Pain 650 MG Tablet Extended Release 2 tablets as needed Orally every 8 hrsCyclobenzaprine HCl 10 MG Tablet 1 tablet at bedtime as needed Orally Once a dayMedication List reviewed and reconciled with the patientUnknown CeleBREX 200 MG Capsule 1 capsule with food Orally Once a dayUnknown Tylenol 8 Hour Arthritis Pain 650 MG Tablet Extended Release 2 tablets as needed Orally every 8 hrsUnknown Cyclobenzaprine HCl 10 MG Tablet 1 tablet at bedtime as needed Orally Once a dayMedication List reviewed and reconciled with the patient * Allergies:?N.K.D.A.yes[Aller gies Verified] Objective: * Vitals:?Ht: 62.5, Wt:152, BM I:27.36, BP:128/72. * Examination: ???General Examination: ?GENERAL APPEARANCE:?well developed, well nourished.?HEAD:?normocephalic.?SKIN:?good turgor.?HEART:?regular rate and rhythm , no murmurs, rubs, gallops.?LUNGS:?no wheezes, rales, rhonchi , good air movement , clear to auscultation bilaterally.? Assessment: * Assessment: 1.?Essential hypertension - I10 (Primary)? Plan: * Treatment: 2.?Others? Notes: patient has never been diagnosed with sleep apnea, has never had a sleep study, and doesn't use a cpap machine?? * Procedure Codes:? * * Sign off status: Completed true * Provider:?Aneesh Montesinos MD Date:?1 07/26/2023 Generated for Ely nix/Rachel/eTransmitting on:?08/18/2024 01:43 PM EST History and Physical Notes * HPI (History of Present Illness) Category Sub-Category Detail Notes Category Not es Symptom(s) patient is a 74 yo female here for follow up of sleep study.. is trying to get health insurance/ patient never had sleep study and was never diagnosed with sleep apnea. Examination Category Sub-Category Detail Notes Category Not es General Examination GENERAL APPEARANCE: well developed , well nourished HEAD: normocephalic HEART: regular rate and rhy thm , no murmurs, rubs, gallops LUNGS: no wheezes, rales, r honchi , good air movement , clear to auscultation bilaterally SKIN: good turgor
--- OUTSIDE RECORDS SUMMARY | 2024-08-18 13:43 | XMS_ITS ---
Author Organization Aneesh Montesinos MD Address [address] [facility] [address] [place] [phone] Care Team Providers Care Rag Cutting Machine Feeder Name Role Phone Aneesh Montesinos Primary Care Provider REASON FOR VISIT refill Encounters Encounter Location Date Provider Diagnosis Aneesh Montesinos MD [address] [facility] [address] [place], [place] [phone] 06/22/2024 Aneesh Montesinos Plan Of Treatment Next Appt Details Provider Name:Aneesh Rubio ier, 08/25/2024 08:30:00 AM, [address] [place] [address], [address], [place], [place], [phone], Progress Notes * Destiny OSHEA LDOB:[birth year] (74 yo F)Acc No.[id number]:06/22/2024 Patient:?Destiny Oshea :1950???Age:74 Y???Sex:Female Address:[address] [place], [address] * true * Date:? Generated for Printi boyd/Rachel/eTransmitting on:?08/18/2024 01:43 PM EST
--- OUTSIDE RECORDS SUMMARY | 2024-08-18 13:43 | XMS_ITS ---
Author Organization [facility] Address [address] [place] [address] Care Team Providers Care Archives Specialist Name Role Phone Aneesh Montesinos MD Primary Care Provider Daniele Ward [phone] REASON FOR VISIT screening PROBLEMS Problem Type ICD Code Onset Dates Problem Status W/U Status Risk SNOMED Code Notes Problem Diverticulosis of large intestine without perforation or abscess without bleeding (K57.30) Active confirmed Diverticul ar disease of colon (358745004) Encounters Encounter Location Date Provider Diagnosis [facility] [address] [place] [id number] 06/07/2023 Daniele Palacio Encounter for scre ening colonoscopy Z12.11 ; Diverticulosis of large intestine without perforation or abscess without bleeding K57.30 and Internal hemorrhoids K64.8 ASSESSMENTS Encounter Date Diagnosis Assessment Notes Treatment Notes Treatment Clinical Notes 06/07/2023 Encounter for screening colonoscopy (ICD-10 - Z12.11) 06/07/2023 Diverticulosis of large intestine without perforation or abscess without bleeding (ICD-10 - K57.30) 06/07/2023 Internal hemorrhoids (ICD-10 - K64.8) PLAN OF TREATMENT No Information
--- OUTSIDE RECORDS SUMMARY | 2024-08-18 13:44 | XMS_ITS ---
Author Organization [facility] Address [address] [facility] [place] [address] Care Team Providers Care Professor In Family Studies Name Role Phone Aneesh Montesinos MD Primary Care Provider Daniele Ward Unavailable [phone] ALLERGIES No Known Allergies REASON FOR VISIT Patient presents today for a COLON SCREENING MEDICATIONS Medication SIG (Take, Route, Frequency, Duration) [...] MORNING Oral for 60 F341,Unavailab le Active hydroCHLOROthiazide 25 MG TAKE 1 TABLET BY MOUTH EVERY DAY IN THE MORNING Oral for 90 Active amLODIPine Besylate 5 MG TAKE 1 TABLET B Y MOUTH EVERY DAY Oral for 90 Active Celecoxib 200 MG TAKE 1 CAPSULE BY MOUTH EVERY DAY WITH FOOD Oral for 30 stopping as of 03/19/23 Active SOCIAL HISTORY Tobacco Use: Social History Observation [...] Problem Colon cancer screening (Z12.11) Active confirmed [id number] Problem Preprocedural examination (Z01.818) Active confirmed [id number] VITAL SIGNS Temperature 96.9 degrees Fahrenheit 03/17/20 23 Blood pressure systolic 000 mm Hg 03/17/20 23 Blood pressure diastolic 00 mm Hg 023 Height 5 ft 2.5 in in 03/17/2023 Weight 147 lbs 03/17/2023 BMI 26.46 kg/m2 03/17/2023 Encounters Encounter Location Date Provider Diagnosis [facility] [address] [place] [address] 03/17/2023 Daniele Palacio Colon cancer screeni ng Z12.11 and Preprocedural examination Z01.818 ASSESSMENTS Encounter Date Diagnosis Assessment Notes Treatment Notes Treatment Clinical Notes 03/17/2023 Colon cancer screening (ICD-10 - Z12.11) Do not take the Hydrochlorothiazide or Potassium the day before nor on the day of the colonoscopy 03/17/2023 Preprocedural examination (ICD-10 - Z01.818) PLAN OF TREATMENT Treatment Notes Assessment Notes Colon cancer screening Do not take the H ydrochlorothiazide or Potassium the day before nor on the day of the colonoscopy Future Test Test Name Order Date COLONOSCOPY 03/17/2023 Next Appt Details Follow Up: prn, Reason: Progress Notes * Examination Category Sub-Category Detail Notes General Examination GENERAL APPEARANCE: pleasant , well nourished, well developed, in no acute distress HEAD: EYES: sclera non-icteric EARS: NOSE: THROAT: NECK/THYROID: no cervical lymphade nopathy, neck supple HEART: S1, S2 normal CHEST: LUNGS: clear to auscultatio n bilaterally ABDOMEN: normal bowel sounds, no guarding or rigidity, no guarding or rigidity, no masses palpable, soft, nontender, nondistended NEUROLOGIC: alert and oriented SKIN: nonjaundiced, no spi albaro angiomata EXTREMITIES: no edema PERIPHERAL PULSES: BACK: BREASTS: MUSCULOSKELETAL: MALE GENITOURINARY: LYMPH NODES: RECTAL EXAM: FEMALE GENITOURINARY: ORAL CAVITY: mucosa moist
--- OUTSIDE RECORDS SUMMARY | 2024-08-18 13:44 | XMS_ITS | Patient Health Record ---
Author Organization [facility] [place] Address [address] [place] [address] Care Team Providers Care Gas Well Pumper Name Role Phone Aneesh Montesinos MD Primary Care Provider Lexy Medina Unavailable [phone] Reason For Referral No Information Social History Tobacco Use: Social History Observation Description Date Details (start date - stop date) Former Smoker NA - NA Tobacco use other than smoking: Question Answer Notes Are you an other tobacco user? No Tobacco Control (Standard) Question Answer Notes Tobacco use: Former smoker Additional Findings: Tobacco non-user Current no nsmoker AUDIT-C (Standard) Question Answer Notes Did you have a drink contain ing alcohol in the past year? Yes How often did you have six o r more drinks on one occasion in the past year? Never (0 point) How many drinks did you have on a typical day when you were drinking in the past year? 1 or 2 drinks (0 point) How often did you have a dri nk containing alcohol in the past year? Never (0 point) Points 0 Interpretation Negative Encounters Encounter Location Date Provider Diagnosis [facility] [address] [place] [address] 07/03/2024 Lexy Wei Plan Of Treatment Next Appt Details Provider Name:Lexy marcano, 09/05/2024 08:30:00 AM, [address] [place], [address], Insurance Providers Payer Name Payer Address Payer Phone Subscriber Number Group Number Insured Name Patient Relationship to Insured Coverage Start Date Coverage End Date [employer] Medicare [id number] [address] [address] [place] [address] [id number] Destiny Oshea Self - patient is the insured Medical (General) History Medical History History ICD Code Arthritis covid-19 Depression High Blood Pressure Measles Chicken pox Joint implants/screws Surgical History Surgery Date(Month/Year) hip replacement 09/22/23
--- OUTSIDE RECORDS SUMMARY | 2024-08-18 13:44 | XMS_ITS | Data Portability ---
Author Organization [facility], [facility] Address [address] [place] [address] Care Team Providers Care Hand Button Splitter Name Role Phone LYNDSEY FRANKEL Primary Care Provider [phone] Assessment Encounter Date Assessment Date Assessment LastModified by Organization Details LastModified Time 02/10/2024 02/10/2024 History: The patient is approximately 3 months status post a right total hip arthroplasty and presents for routine follow-up per our request. Pain level 0-10. Reports no limitations. Happy with the results. PMH/PSH/MEDS/ALL /FMH/SOC HX/ROS all reviewed in detail per my medical intake sheet. ROS: The patient denies fevers, chills, neurovascular changes, history of trauma. Exam: Vitals signs as noted. Alert and oriented x3. Appears well and in no acute distress. Extremities: Incision is well-healed. Calves are soft and nontender. No evidence of DVT. No lower extremity edema. Neurovascular status at baseline. Painless range of motion of the hip. No trochanteric tenderness. X-rays: Radiographs were ordered and obtained today including an AP Pelvis and an AP and frog-lateral of the affected hip. Radiographs demonstrate a well-positioned total hip arthroplasty without evidence of fracture or dislocation. No subsidence or loosening is seen. Assessment: The patient is doing well approximately 3 months s/p FABI. Plan: The patient will continue activity as tolerated. Home exercise program reviewed. The patient was advised to take occasional OTC acetaminophen or OTC NSAIDS for mild residual discomfort if they are not otherwise medically contraindicated. They are encouraged to discuss this with their PCPS. The potential benefits, risks, and side effects were explained at length. Total hip precautions discussed and reinforced. Need for antibiotic prophylaxis for dental visits discussed. Prescription was provided. Pros and cons of utilizing this were explained. The patient will follow-up annually or sooner if there are any problems. [email or web address] Not available 02/10/2024 10:24:04 Plan of Treatment Reminders Order Date Submit Date Provider Last Modified By Organization Details Last Modified Time Details Appointments None recorded. Lab None recorded. Referral physical therapist referral - DX SI JOINT 2023 024 [email or web address] Not available 14:31:51 Procedures None recorded. Surgeries None recorded. Imaging XR, hip + pelvis, unilatera l, 2 or 3 view - 210 RTHR 2V P/O 2023 024 [email or web address] [facility], [address], [address], [place], [address], 4 08:18:07 XR, hip + pelvis, unilatera l, 2 or 3 view - rm 4 2023 024 BEE [facility], [address], [address], [place], [address], 4 13:18:09 XR, cervical spine, 1 view - room 220 lateral cervical 2023 024 essenger [facility], [address], [address], [place], [address], 4 16:02:39 XR, shoulder, 2 or more view - room 220 right shoulder/ lateral cervical 2023 024 [email or web address] [facility], [address], [address], [place], [address], 4 16:02:39 XR, hip, unilatera l, 2 or 3 view - 4 wk post op RTHR AL room 219 2023 024 [email or web address] [facility], [address], [address], [place], [address], 4 12:19:38 XR, hip, unilatera l, 2 or 3 view - ROOM 201, 1st post op RTHR AL 2023 024 [email or web address] 7 [facility], [address], [address], [place], [address], 4 09:45:11 Medication Orders amoxicill in 500 mg capsule 2023 024 flaquita [id number], [address], [place], [phone], 4 10:13:30 meloxicam 15 mg tablet 2023 024 BEE [facility] #[id number], [address], [place], [phone], 4 10:02:05 Patient TargetsNo targets recorded. Patient Instructions Encounter Date Encounter Id Patient Instructions Last Modified By Organization Details Last Modified Time 01/04/2024 [id number] sacroiliac pain: exercises [email or web address] Not available 01/04/2024 13:49:33 Reason for Referral Physical Therapist Referral for Inflammation of sacroiliac joint DX SI JOINT Referring Physician: Beth Richmond, Orthopedic Surgery, [id number] Encounter Date: 01/04/2024 Results Created Date Observation Date Name Description Value Unit Range Abnormal Flag Note LastModifiedBy Organization Detail LastModifiedTime 12/21/19 24 12/21/2023 XR, cervi jamaal spine , 1 view [email or web address] ?Encry pted=s hAaTro YD8dLq bEUv6g %2BXZw aYqtaq 0bqfl% 2Fg9IQ a4ajBk vP9nXo QUaueC m3YtLR FvZlgJ JJ8mAn HZtai3 1e6254 AC0Kpa H6GWKr eUC8mr 84%3D INTERFACE [facility] [address], [place], [address], 12/21/2023 14:52:16 12/21/19 24 12/21/2023 XR, cervi jamaal spine , 1 view [email or web address] ?Encry pted=s hAaTro YD8dLq bEUv6g %2BXZw aYqtaq 0bqfl% 2Fg9IQ a4ajBk vP9nXo QUaueC m3YtLR FvZlgJ JJ8mAn HZtai3 0n4476 AC0Kpa H6GWKr eUC8mr 84%3D INTERFACE [facility] [address], [place], [address], 12/21/2023 14:52:18 12/21/19 24 12/21/2023 XR, shoul albaro, 2 or more view [email or web address] ?Encry pted=s hAaTro YD8dLq bEUv6g %2BXZw aYqtaq 0bqfl% 2Fg9IQ a4ajBk vP9nXo QUaueC m3YtLR FvZlgJ JJ8mAn HZtai3 0k9690 AC0Kpa H6GWaX eUC8mr 84%3D INTERFACE [facility] [address], [place], [address], 12/21/2023 14:55:41 12/21/19 24 12/21/2023 XR, shoul albaro, 2 or more view [email or web address] ?Encry pted=s hAaTro YD8dLq bEUv6g %2BXZw aYqtaq 0bqfl% 2Fg9IQ a4ajBk vP9nXo QUaueC m3YtLR FvZlgJ JJ8mAn HZtai3 3z1972 AC0Kpa H6GWaX eUC8mr 84%3D INTERFACE [facility] [address], [place], [address], 12/21/2023 14:55:44 01/04/20 24 01/04/2024 XR, hip + pelvi s, unila teral , 2 or 3 view [email or web address]:/ [email or web address] ?Encry pted=s hAaTro YD8dLq bEUv6g %2BXZw aYqtaq 0bqfl% 2Fg9IQ a4ajBk vP9nXo QUaueC m3YtLR FvZl JJ8Oketo HZtai3 0e4437 AC0Kpb X%2BBU 6XeUC8 mr84%3 D INTERFACE [facility] [address], [place], [address], 01/04/2024 13:18:09 01/04/20 24 01/04/2024 XR, hip + pelvi s, unila teral , 2 or 3 view [email or web address]:/ [email or web address] ?Encry pted=s hAaTro YD8dLq bEUv6g %2BXZw aYqtaq 0bqfl% 2Fg9IQ a4ajBk vP9nXo QUaueC m3YtLR FvZl JJ8mAn HZtai3 0a1391 AC0Kpb X%2BBU 6XeUC8 mr84%3 D INTERFACE [facility] [address], [place], [address], 01/04/2024 13:18:12 02/10/20 24 02/10/2024 XR, hip + pelvi s, unila teral , 2 or 3 view [email or web address] ?Encry pted=s hAaTro YD8dLq bEUv6g %2BXZw aYqtaq 0bqfl% 2Fg9IQ a4ajBk vP9nXo QUaueC m3YtLR FvZlgJ JJ8mAn HZtai3 3n5712 AC0Kra HmFUaP eUC8mr 84%3D INTERFACE [facility] [address], [place], [address], 02/10/2024 10:09:40 02/10/20 24 02/10/2024 XR, hip + pelvi s, unila teral , 2 or 3 view [email or web address]:/ [email or web address] ?Encry pted=s hAaTro YD8dLq bEUv6g %2BXZw aYqtaq 0bqfl% 2Fg9IQ a4ajBk vP9nXo QUaueC m3YtLR FvZlgJ JJ8mAn HZtai3 0h2930 AC0Kra HmFUaP eUC8mr 84%3D INTERFACE [facility] [address], [place], [address], 02/10/2024 10:09:42 Result Notes None recorded. Problems Name Problem SNOMED Code Status Onset Date Resolution Date Notes Provider Name and Address Organization Details Recorded Time Pain of right shoulder joint 5410888011385 9100 Active 2023 Darrin Perkins PA-C [address], [place], [address], [facility] 4 14:45:02 Neck pain 83197962 Active 2023 Darrin Perkins PA-C [address], [place], [address], [facility] 4 14:45:39 Localized, primary osteoarthri tis of the shoulder region 328779295 Active 2023 Darrin Perkins PA-C [address], [place], [address], [facility] 4 15:09:44 Inflammatio n of sacroiliac joint 17753928 Active 2023 Beth randhawa PA-C [address], [place], [address], [facility] 4 13:48:44 Osteoarthri tis of right hip joint 7866565744121 07 Active 2023 yoly da silva [place] - [facility] 11:38:31 Problem Notes None recorded. Procedures Surgical History None recorded. Imaging Results Imaging Date Name Status LastModified by Organiz ation Details LastModified Time 12/21/2023 XR, cervical spine, 1 view completed INTERFACE [facility] [address], [place], [address], 12/21/2023 14:52:16 12/21/2023 XR, cervical spine, 1 view completed INTERFACE [facility] [address], [place], [address], 12/21/2023 14:52:18 12/21/2023 XR, shoulder, 2 or more view completed INTERFACE [facility] [address], [place], [address], 12/21/2023 14:55:41 12/21/2023 XR, shoulder, 2 or more view completed INTERFACE [facility] [address], [place], [address], 12/21/2023 14:55:44 01/04/2024 XR, hip + pelvis, unilateral, 2 or 3 view completed INTERFACE [facility] [address], [place], [address], 01/04/2024 13:18:09 01/04/2024 XR, hip + pelvis, unilateral, 2 or 3 view completed INTERFACE [facility] [address], [place], [address], 01/04/2024 13:18:12 02/10/2024 XR, hip + pelvis, unilateral, 2 or 3 view completed INTERFACE [facility] [address], [place], [address], 02/10/2024 10:09:40 02/10/2024 XR, hip + pelvis, unilateral, 2 or 3 view completed INTERFACE [facility] [address], [place], [address], 02/10/2024 10:09:42 Procedure Notes None recorded. Medical Equipment None Reported. Allergies No known drug allergies Medications Name Sig Start Date Stop Date Status Note LastModified by Organization Details LastModified Time Prescriptio n - New 10/28 completed METER READER CHIEF 2023 Not Available Not Available Not Available celecoxib 200 mg capsule TAKE 1 CAPSULE BY MOUTH EVERY DAY 02/09 completed Not Available Not Available Not Available amoxicillin 500 mg capsule TAKE 4 CAPSULES BY MOUTH 1 HOUR BEFORE DENTAL APPOINTME NT active Not Available Not Available No t Available paroxetine 10 mg tablet TAKE 1 TABLET BY MOUTH EVERY DAY IN THE MORNING 10/28 completed Not Available Not Available Not Available ibuprofen 800 mg tablet TAKE 1 TABLET BY MOUTH THREE TIMES DAILY WITH FOOD OR MILK NEEDED 10/28 completed Not Available Not Available Not Available meloxicam 15 mg tablet TAKE 1 TABLET BY MOUTH EVERY DAY 02/09 completed Not Available Not Available Not Available amlodipine 5 mg tablet TAKE 1 TABLET BY MOUTH EVERY DAY 10/28 completed Not Available Not Available Not Available tramadol 50 mg tablet TAKE 1 TO 2 TABLETS BY MOUTH EVERY 6 HOURS NEEDED FOR MILD PAIN. DO NOT EXCEED 8 TABLETS (400MG) PER DAY. 10/28 completed Not Available Not Available Not Available potassium chloride ER 20 mEq tablet,exte nded release(par t/cryst) TAKE 1 TABLET BY MOUTH TWICE DAILY WITH FOOD active Not Available Not Available No t Available amlodipine 10 mg tablet TAKE 1 TABLET BY MOUTH EVERY DAY active Not Available Not Available No t Available paroxetine 20 mg tablet TAKE 1 TABLET BY MOUTH EVERY DAY IN THE MORNING active Not Available Not Available No t Available pantoprazol e 40 mg tablet,odette yed release TAKE 1 TABLET BY MOUTH EVERY MORNING 10/28 completed Not Available Not Available Not Available moexipril 15 mg tablet TAKE 2 TABLETS BY MOUTH EVERY DAY 02/09 completed Not Available Not Available Not Available prednisone 50 mg tablet TAKE 1 TABLET BY MOUTH ONCE DAILY 10/28 completed Not Available Not Available Not Available omeprazole 20 mg capsule,del ayed release TAKE 1 CAPSULE BY MOUTH EVERY DAY 30 MINUTES BEFORE BREAKFAST 10/28 completed Not Available Not Available Not Available hydrochloro thiazide 25 mg tablet TAKE 1 TABLET BY MOUTH EVERY DAY IN THE MORNING active Not Available Not Available No t Available gabapentin 100 mg capsule TAKE 1 CAPSULE BY MOUTH TWICE DAILY active Not Available Not Available No t Available amoxicillin 875 mg-cecilia ray clavulanate 125 mg tablet TAKE 1 TABLET BY MOUTH EVERY 12 HOURS FOR 10 DAYS 10/28 completed Not Available Not Available Not Available oxycodone 5 mg tablet TAKE 1 TO 2 TABLETS BY MOUTH EVERY 4 HOURS NEEDED FOR MODERATE TO SEVERE PAIN 10/28 completed Not Available Not Available Not Available valsartan 160 mg tablet active Not Available Not Available Not Available Paxlovid 300 mg (150 mg x 2)-100 mg tablets in a dose pack TK 2 NIRMATREL VIR TS AND 1 RITONAVIR T TOGETHER PO BID FOR 5 DAYS 10/28 completed Not Available Not Available Not Available Vitals Date Recorded Body height Body mass index (BMI) Body weight Provider Name and Address Organization Details Last Updated DateTime 10/06/2023 157.48 cm 26.9 kg/m2 77277.8 g Afshin Coy PA-C [address], [place], [address], [facility] 10/06/2023 08:44:18 Date Recorded Body height Body mass index (BMI) Body weight Provider Name and Address Organization Details Last Updated DateTime 10/29/2023 157.48 cm 26.9 kg/m2 02960.08 g EDEL GONZALEZ [facility] 10/29/2023 09:18:13 Date Recorded Body height Body mass index (BMI) Body weight Provider Name and Address Organization Details Last Updated DateTime 12/21/2023 157.48 cm 26.9 kg/m2 20854.08 g Darrin Perkins PA-C [address], [place], [address], [facility] 12/21/2023 14:44:19 Date Recorded Body height Body mass index (BMI) Body weight Provider Name and Address Organization Details Last Updated DateTime 01/04/2024 157.48 cm 26.9 kg/m2 61762.08 g HORTENCIA STEVENSON [facility] 01/04/2024 13:01:54 Date Recorded Body height Body mass index (BMI) Body weight Provider Name and Address Organization Details Last Updated DateTime 02/10/2024 157.48 cm 26.9 kg/m2 61364.08 g APRIL MCKENZIE [facility] 02/10/2024 10:01:10 Social History Question Answer Notes LastModified by Organizat ion Details LastModified Time Tobacco Smoking Status Never Smoker EDEL da silva [place] - [facility] 10/29/2023 09:19:52 What Is Your Level Of Alcohol Consumption? Occasional Information not available 10/29/2023 How Many Times Per Week Do You Consume Alcohol? 3-4 Times Per Week Information not available 10/29/2023 Have You Ever Been Counseled For Unhealthy Alcohol Use? No Information not available 10/29/2023 What Is Your Relationship Status? Single Information not available 10/29/2023 Do You Use Any Illicit Or Recreational Drugs? No Information not available 10/29/2023 Do You Or Have You Ever Used Any Other Forms Of Tobacco Or Nicotine? No Information not available 10/29/2023 Sex: Unknown Functional Status None recorded. Mental Status None recorded. Family History Nothing Reported. Medical History Condition Response Coronary Artery Disease N Anxiety/Depression Y Emphysema N COPD N Pacemaker N Vascular Disease N Heart Trouble N Gastrointestinal Disease N Autoimmune disease N Orthotics N Arthritis Y Blood Clot N Acid Reflux (GERD) N Cancer N Stroke N Circulation Problems N Rheumatoid Arthritis N Arrhythmia N Headaches N Fibromyalgia N Allergies/Hayfever N Breathing or lung disorders N Nerve Disorders N Thyroid Problems N Kidney/Bladder Problems N Anemia N Heart Attack (VA) N Cholesterol N Diabetes N Bleeding Disorder N Seizures/Epilepsy N AIDS/HIV N Congestive Heart Failure (CHF) N Asthma N Peripheral Vascular Disease N Sleep Apnea N Hepatitis N Heart Disease N Pulmonary Embolism N Hypertension Y Osteoporosis N Gynecological HistoryNo gynecological history recorded. Obstetrics History GPAL:G 0 P 0 0 0 0 Past Encounters Encounter ID Performer Location Encounter Start Date Encounter Closed Date Diagnosis/Indication Diagnosis SNOMED-CT Code Diagnosis ICD10 Code Diagnosis Note [id number] MD [facility] [address] [place] [address] 08/31/2023 08:15:33 09/17/2023 10:09:48 Osteoarthritis of right hip joint 4248405901 12924 M16.11 [id number] Elle Jean Baptiste CNP [facility] [address] [place], [place] [address] 09/14/2023 11:22:07 09/29/2023 12:13:36 Osteoarthritis of right hip joint 4902630314 48278 M16.11 [id number] Afshin Coy PA-C [facility] [address] [place] [address] 10/06/2023 08:35:18 10/06/2023 09:45:10 Aftercare 126669826 Z47.31 History of total replacement of right hip joint 9749476106 71960 Z96.653 [id number] SANJUANA Valderr[facility] [address] [place] [address] 10/29/2023 09:02:07 11/22/2023 09:57:16 History of total replacement of right hip joint 0606262566 86475 Z96.641 Postoperative visit 1836 77752 Z48.89 Hip joint prosthesis present 684577322 Z96.672 [id number] SANJUANA Elizabeth [address] [place] [address] 12/21/2023 14:26:29 01/07/2024 16:02:39 Pain of right shoulder joint 7675280632 7264776 M25.511 Neck pain 43497153 M54.2 Localized, primary osteoarthritis of the shoulder region 678340284 M19.568 [id number] Beth Richmond PA-C [facility] [address] [place], [place] [address] 01/04/2024 12:45:47 01/28/2024 10:10:48 Pain of left hip joint 9830491475 13896 M25.552 Inflammati on of sacroiliac joint 60369865 M46.1 [id number] MD [facility] [address] [place], [place] [address] 02/10/2024 09:12:24 03/06/2024 08:18:07 History of total replacement of right hip joint 1380427477 00948 Z96.641 Health Concerns Section Related Observation LastModified by Organization Detai ls LastModified Time None Recorded Concern Status LastModified by Organization Details LastModified Time None Recorded Advance Directives Directive None Recorded Payers Encounter Date Sequence Insurance Name Policy Number Policy Funes Covered Member ID Funes Member ID Guarantor Name 10/06/2023 1 [facility] (MEDICARE REPLACEMENT/A DVANTAGE - PPO) [id number] Destiny Oshea [id number] Destiny Oshea 10/29/2023 1 [facility] (MEDICARE REPLACEMENT/A DVANTAGE - PPO) [id number] Destiny Oshea [id number] Destiny Oshea 12/21/2023 1 [facility] (MEDICARE REPLACEMENT/A DVANTAGE - PPO) [id number] Destiny Oshea [id number] Destiny Oshea 01/04/2024 1 [facility] (MEDICARE REPLACEMENT/A DVANTAGE - PPO) [id number] Destiny Oshea [id number] Destiny Oshea 02/10/2024 1 [facility] (MEDICARE REPLACEMENT/A DVANTAGE - PPO) [id number] Destiny Oshea [id number] Destiny Oshae Notes Date Note Type Note Provider Name and Address Organization Details Recorded Time 10/06/2023 text/html I am seeing the patient today under the supervision of {{Leyla* Brothers Genoveva Baker}} who was available but who did not see the patient. HPI: Patient returns follow-up 2 weeks postop right total hip replacement. Patient seems to be progressing well with therapy. Patient's pain seems to be controlled. Past family, medical, social history and review of systems has been reviewed, updated and is located in the patient? s chart. Examination: No significant swelling warmth erythema about the right total hip. Incision is healing well. Range of motion of the right total hip: Flexion 90, internal {{10 15* 20}}, and external {{10 15* 20}}. Good strength about the right total hip. Peripheral, vascular, lymphatic examination, skin, neurological, coordination, reflexes, sensation are within normal limits. X-rays ordered, obtained and reviewed at [facility] 2 views of the right total hip demonstrate good implant interfaces in good alignment. Impression: 2 weeks status post right total hip replacement Plan: Reviewed x-rays. Reviewed postop protocols with the patient today in the office. Reviewed total hip precautions. Continue with therapy. Patient can wean from a walker to a cane as safe. Follow-up in 2 weeks to recheck the total hip replacement. Afshin Coy PA-C [address], [place], [address], [facility] 10/06/2023 09:22:51 10/29/2023 text/html I am seeing the patient today under the supervision of Dr. Johnson who was available but who did not see the patient. HPI: Patient comes in for follow-up, now 4 weeks status post right total hip arthroplasty. Happy with results. No significant complaints of pain. No neurovascular changes. Past family, medical, social history and review of systems has been reviewed, updated, and is located in the patient? s chart. Examination: The patient is well appearing and in no apparent distress. Alert and oriented x3. Gait is antalgic on the right. Examination hip has a healing surgical incision. Appropriate postoperative edema, no erythema or drainage. Supple pain-free range of motion. Calf is soft and nontender bilaterally. 4+/5 strength of hip flexion and extension. X-rays ordered, obtained, and reviewed at [facility] today include an AP pelvis and lateral view of the right hip. Radiographs demonstrate a total joint arthroplasty with good interfaces and alignment. No evidence of any lysis or loosening. No acute fractures appreciated. Impression: 4 weeks status post right total hip arthroplasty Plan: The patient is progressing nicely. Will continue with total hip precautions which were reviewed with the patient. Continue to monitor for signs/symptoms of infection. Follow up as scheduled, sooner if there are any complications. All questions were answered. [email or web address] speech recognition dry goods clerk software was used to create portions of this document. An attempt at proofreading has been made to minimize errors. Please call for corrections. Cecily Jonas PA-C [address], [place], [address], [facility] 10/29/2023 10:08:36 12/21/2023 text/html I am seeing this patient under the supervision of Dr. Hunt who was available but did not see the patient. HPI: Patient is a very pleasant 73-year-old female who presents her office today with 6-month history of intermittent right shoulder pain. She has undergone right hip arthroplasty that is gone well she has been postponing evaluation of the shoulder because of that recovery. She has intermittent pain when she extends the arm behind her back she does occasionally report nighttime symptoms and today actually is feeling a little bit better upon presentation. Frustrating concern by this the patient is now referred to our office for orthopedic evaluation. PFMSH and ROS has been reviewed, updated, and signed by me and is located in the patient? ? ?s chart. PHYSICAL EXAMINATION: The patient is well appearing and in no apparent distress. Alert and oriented x 3. Gait is symmetric. Right forward elevation 165 degrees, external rotates 55 degrees, internal rotates with pain to L5, 4/5 strength including rotator cuff and periscapular musculature. Good Muscle bulk and strength without atrophy. No evidence of instability of the shoulder. Positive impingement signs. Moderate AC joint tenderness, Mild tenderness within the bicipital groove. Negative Speed's, Negative O'briens, Negative Stephanie tests. Cervical ROM normal without radicular symptoms. No erythema, no redness, no warmth. Peripheral, vascular, lymphatic examination, skin, neurological, coordination, reflexes, sensation are within normal limits. X-RAY REPORT: X-rays were ordered, obtained and independently reviewed today at [facility]. Four views of the right shoulder demonstrate demonstrate type II acromion, AC joint arthritis, glenohumeral joint arthritis with anterior subluxation of the humeral head relative to the glenoid, inferior humeral head osteophyte. Lateral C-spine x-ray shows multilevel degenerative disc disease. IMPRESSION: Right shoulder early glenohumeral joint osteoarthritis PLAN: Treatment options discussed we talked about management of her symptoms with lifestyle modification home-based exercises, potential benefit of ultrasound-guided intra-articular shoulder injection was discussed. At this time she feels like her symptoms are not bad enough to want this. She will modify her activities if symptoms escalate she will contact the office for evaluation. Patient understands definitive care for her problem is total shoulder arthroplasty if conservative measures no longer provide quality of life. [email or web address] speech recognition dry goods clerk software was used to create portions of this document. An attempt at proofreading has been made to minimize errors. Please call for corrections. Darrin Perkins PA-C [address], [place], [address], [place] - [facility] 12/21/2023 15:10:35 01/04/2024 text/html I am seeing the patient today under the supervision of Dr. Milner who was available but who did not see the patient. History is taken from the patient HPI: Patient here today pleasant 73-year-old female presents to the orthopedic urgent care clinic concerning left low back SI joint pain. She feels as though this is hip pain has some very mild pain anterior on her hip as well however no groin pain. She does not describe pain in a C like fashion as well. She describes more deep gluteal type pain. It does not radiate down her legs. Has a recent history of a right total hip arthroplasty by Sam in September. Last year she was seen at [facility] and had an MRI of her lumbar spine which was independently reviewed in the [facility] system at [facility] at this time which showed only mild multilevel degenerative changes of her lumbar spine with no high-grade lesions nerve root impingement or significant pathology. She tells me the pain came on suddenly on 01/03/2024 after she returned from the store. There was no particular accident or injury to provoke it. It is constant in nature. She has been taking Tylenol. She had some leftover tramadol from her hip replacement which she took which did help somewhat. She denies pain out over her greater trochanteric bursa. Past family, medical, social history and review of systems has been reviewed, updated and is located in the patient? ? ?s chart. EXAMINATION: Pain is easily reproducible to direct palpation over her left SI joint pain. She had full strength resisted testing hip ankle knee flexion and extension. Strong dorsi and plantarflexion. Strong EHLs. She is able to do a straight leg raise without difficulty. I was unable to reproduce pain in her groin with internal/external hip rotation although this did provoke some left SI joint pain. X-RAYS: Were ordered, obtained and independently reviewed today in our office. There were 2 views of the left hip performed in the findings are as follows: Shows no acute bony pathology or process. 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 DIAGNOSIS: Left SI joint dysfunction MEDICAL DECISION MAKING: Medication is prescribed today. Patient has been counseled on the risks, benefits, and interactions with other medications at this time. Questions garding medications of any answered on behalf of the patient. Meloxicam should be taken as one tab po daily with food. Risks and benefits of anti-inflammatories discussed with the patient at this time. Patient is prescribed an SI joint belt. Prescription given for this. The patient is ambulatory, but has weakness and/or instability of their extremity which requires stabilization from this semi-rigid/rigid orthosis to improve their function. Verbal and written instructions for the use and application of this item were given. Patient was instructed that should the brace result in increased pain, decreased sensation, increased swelling or an overall worsening of their medical condition, to please contact our office immediately. Patient may follow up with us in 3 months if still symptomatic after physical therapy is completed. Therapy recommended and referral given today: Today's visit involved examining the patient, reviewing the history, reviewing the radiographic studies, counseling the patient regarding treatment options, and the administrative tasks including placing orders, preparing patient information and home handouts and preparing the visit note. This note was generated with [facility] speech recognition dry goods clerk dictation software. Please excuse any errors that may have been overlooked during review of this note. Sometimes, these errors may affect the content or meaning of a given sentence. Please call for corrections. Beth Richmond PA-C [address], [place], [address], [facility] - [facility] 01/04/2024 13:58:28 OBGyn Episode No OBEpisode recorded.
--- OUTSIDE RECORDS SUMMARY | 2024-08-18 13:44 | XMS_ITS ---
Author Organization Aneesh Montesinos MD Address [address] [place], [place] [id number] Care Team Providers Care Watch Dial Printer Name Role Phone Aneesh Montesinos Primary Care Provider Results Component Value Reference Range Notes Comprehensive [place]. Panel Fa st (Not yet reviewed by provider) Interpretation: Performing Lab:[facility], [address] [place] [phone] Notes/Report: Sodium 140 135-145 mmol/L Potassium 3.5 [...] ff Reviewed date:08/18/2024 12:40:10 PM Interpretation: Performing Lab:[facility], [address] [place] [phone] Notes/Report: White Blood Count 5.5 4.8-10.8 X10*3/uL [...] Panel Reviewed date:08/18/2024 12:34:23 PM Interpretation: Performing Lab:[facility], [address] [place] [phone] Notes/Report: Triglycerides 93 <150 mg/dL Desirable Triglyceride: [...] low results in patients with liver disease. REASON FOR VISIT FASTING LABS Encounters Encounter Location Date Provider Diagnosis Aneesh Montesinos MD [address] [place] [address] [place] [phone] 08/18/2024 Aneesh Montesinos Blood tests for routine general physical examination Z00.00 and Essential hypertension I10 Assessments Encounter Date Diagnosis (ICD Code) Assessment Notes Treatment Notes Treatment Clinical Notes Section Notes 08/18/2024 Blood tests for routine general physical examination (ICD-10 - Z00.00) 08/18/2024 Essential hypertension (ICD-10 - I10) Plan Of Treatment Pending Test Test Name Order Date Comprehensive [place]. Panel Fast UA ClnCatch+Micro w/rflx Cult 08/18/2024 Next Appt Details Provider Name:Aneesh Rubio ier, 08/25/2024 08:30:00 AM, [address] [place] [address], Suite [facility], [place], [place], [phone], Progress Notes * Destiny OSHEA LDOB:[birth year] (74 yo F)Acc No.[id number]:08/18/2024 Progress Note Patient:?Destiny OSHEA Provider:?Aneesh Montesinos MD :1950???Age:74 Y???Sex:Female D ate:08/18/2024 Address:[address], [facility] Subjective: * Chief Complaints: * ???1. FASTING LABS. * Medical History:? Objective: * Vitals:? Assessment: * Assessment: 1.?Blood tests for routine g eneral physical examination - Z00.00 (Primary)???2.?Essential hypertension - I10??? Plan: * Treatment: 2.?Essential hypertension?LAB: Comprehensive [place]. Panel Fast (Collection Date & Time - 08/18/2024 08:00 AM) ?LAB: UA ClnCatch+Micro w/rflx Cult ?LAB: Complete Blood Count Auto Diff (Collection Date & Time - 08/18/2024 08:00 AM) ?LAB: Lipid Panel (Collection Date & Time - 08/18/2024 08:00 AM) * Procedure Codes:?56720 VENIP UNCT, ROUTINE* * * The named appointment provid er may or may not be the originator of this progress note, and it is not deemed complete until electronically signed by the appointment provider. Sign off status: Pending * Provider:?Aneesh Montesinos MD Date:?0 08/18/2024 Generated for Ely nix/Rachel/Cherry on:?08/18/2024 01:43 PM EST
--- OUTSIDE RECORDS SUMMARY | 2024-08-18 13:44 | XMS_ITS ---
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 Generated for Printi ng/Faxing/eTransmitting on:?08/18/2024 01:44 PM EST
== END 2024-08-18 11:29 | disposition home or self-care (01) ==
LOC: HO.LNP 11:28
PROVIDERS: Visit Provider Internal Medicine
DX: Z00.00 Encounter for general adult medical examination without abnormal findings (principal); I10 Essential (primary) hypertension
CPT/HCPCS: 80053; 80061; 85025

== ENCOUNTER 2024-08-25 10:15 | Outpatient (REF) | payer MEDICARE, SELFPAY ==
[2024-08-25 11:04] LABS: Appearance Urine Clear; Color Urine Yellow; Glucose Urine UA Negative (Negative); Leukocyte Esterase Urine Negative (Negative); Nitrite Urine Negative (Negative); PH 5.5 (5.0-9.0); Specific Gravity - Urine 1.025 (1.005-1.025); Urine Blood Negative (Negative); Urine Ketones Negative (Negative); Urine Protein Negative (Neg-Trace)
[2024-08-25 11:11] LABS: Bacteria Urine None Seen (None Seen); RBC Urine 0-2 /HPF (0-2); Squamous Epithelial Cell Urine 0-2 /HPF (0-2); WBC Urine 0-5 /HPF (0-5)
--- OUTSIDE RECORDS SUMMARY | 2024-08-25 11:28 | XMS_ITS ---
Author Organization Aneesh Montesinos MD Address [address] [facility] [address] [place] [phone] Care Team Providers Care Aws Architect Name Role Phone Aneesh Montesinos Primary Care Provider REASON FOR VISIT refill Encounters Encounter Location Date Provider Diagnosis Aneesh Montesinos MD [address] [place] [address] [address] [place], [place] [phone] 06/22/2024 Aneesh Montesinos Plan Of Treatment Next Appt Details Provider Name:Aneesh Rubio ier, 08/23/2025 07:15:00 AM, [address] [place] [address], [place] [address], [place], [place], [phone], Provider Name:Aneesh Rubio ier, 08/30/2025 08:30:00 AM, [address] [place] [address], [place] [address], [place], [place], [phone], Progress Notes * Destiny OSHEA LDOB:[birth year] (74 yo F)Acc No.[id number]:06/22/2024 Patient:?Destiny Oshea :1950???Age:74 Y???Sex:Female Address:[address] [place], [address] * true * Date:? Generated for Printi ng/Faxing/eTransmitting on:?08/25/2024 11:28 AM EST
--- OUTSIDE RECORDS SUMMARY | 2024-08-25 11:28 | XMS_ITS ---
Author Organization Aneesh Montesinos MD Address [address] [place], [place] [id number] Care Team Providers Care Sliver Machine Operator Name Role Phone Aneesh Montesinos Primary Care Provider Allergies No Known Allergies Results Component Value Reference Range Notes UA ClnCatch+Micro w/rflx Cul t (Not yet reviewed by provider) Interpretation: Performing Lab:[facility], [address] [place] [id number] Notes/Report: Urine, Clean Catch Color Urine Yellow Appearance Urine Clear PH 5.5 5.0-9.0 Glucose Urine UA Negative Negative mg/dL Urine Blood Negative Negative Specific [place] - Urine 1.025 1.005-1.025 Urine Protein Negative Neg-Trace mg/dL Urine Ketones Negative Negative mg/dL Nitrite Urine Negative Negative Leukocyte Esterase Urine Negative Negative RBC Urine 0-2 0-2 /HPF WBC Urine 0-5 0-5 /HPF Squamous Epithelial Cell Urine 0-2 0-2 /HPF Bacteria Urine None Seen None Seen Hyaline Casts Urine 3-5 0-2 /LPF Occult Blood, Stool, Guaiac Reviewed date:08/25/2024 09:48:39 AM Interpretation:Negative Performing Lab: Notes/Report: Negative Occult Blood, Stool, Guaiac Neg Reason For Referral Reason diarrhea Diagnosis 1 Diarrhea (R19.7) Referral Organization Aneesh Montesinos MD Referring Provider First Name Aneesh Referring Provider Last Name Jaguar Referring Provider Speciality Internal M edicine Referred Provider Daniele Dowling Referred Provider Specialty Gastroentero logy Referral Priority Routine REASON FOR VISIT ANNUAL EXAM Medications Medication [...] Location Date Provider Diagnosis Aneesh Montesinos MD [address] [place] [address] Drive [address] [place], [place] [phone] 08/25/2024 Aneesh Montesinos Essential hypertension I10 ; [...] with patient Diarrhea referral to dr dowling Dysthymia stable, will continu e current regiment Colon cancer screening guiac negative Depression screening negative screen Pending Test Test Name Order Date UA ClnCatch+Micro w/rflx Cult 08/25/2024 Referrals Referral Date Details 08/25/2024 08/25/2024, diarrhea , Daniele Dowling Next Appt Details Provider Name:Aneesh fang, 08/23/2025 07:15:00 AM, [address] [place] [address], [address], [phone], Provider Name:Aneesh fang, 08/30/2025 08:30:00 AM, [address] [place] [address], [address], [place], [place], [phone], Progress Notes * Destiny OSHEA LDOB:[birth year] (74 yo F)Acc No.[id number]:08/25/2024 Progress Notes Patient:?Destiny OSHEA Provider:?Aneesh Montesinos MD :1950???Age:74 Y???Sex:Female D ate:08/25/2024 Address:[address], [facility], [id number] Subjective: * Chief Complaints: * ???1. ANNUAL EXAM. * HPI: ???Depression Screening:?PHQ-9?Little interest or pleasure in doing things?Not at all,?Feeling down, depressed, or hopeless?Not at all,?Trouble falling or staying asleep, or sleeping too much?Not at all,?Feeling tired or having little energy?Not at all,?Poor appetite or overeating?Not at all,?Feeling bad about yourself or that you are a failure, or have let yourself or your family down?Not at all,?Trouble concentrating on things, such as reading the newspaper or watching television?Not at all,?Moving or speaking so slowly that other people could have noticed; or the opposite, being so fidgety or restless that you have been moving around a lot more than usual?Not at all,?Thoughts that you would be better off or of hurting yourself in some way?Not at all,?Total Score?0.?Interpretation and Intervention?Depression Screening Findings?Negative,?Follow-Up for Depression?: review of PHQ-9 found negative result, no follow-up needed.?Communication Needs:?Communication Needs?Does the patient have a hearing impairment?No,?Does the patient have a vision impairment??Yes,?If yes, what is the vision impairment??Glasses,?Does the patient have a cognition impairment??No.?Fall Risk:?History?Have you had any falls with injury in the past year??No,?Have you had two or more falls in the past year??No.?SDOH Questions:?SDOH Questions?In the past year have you been worried about losing housing??No,?In the past year have you or any family members you live with been unable to get any of the following when it was really needed? Check all that apply:?None.?Symptom(s):? patient is a 74 yo female here for annual visit with review of recent labs and follow up of chronic issues.every day before supper gets cramps and diarrhea just one time. * ROS:?General/Constitutional:?Change in appetite?denies.?Chills?denies.?Fever?denies.?Ophthalmologic:?Blurred vision?denies.?Discharge?denies.?Pain?denies.?ENT:?Decreased hearing?denies.?Sore throat?denies.?Swollen glands?denies.?Endocrine:?Cold intolerance?denies.?Excessive thirst?denies.?Heat intolerance?denies.?Weight loss?denies.?Respiratory:?Cough?denies.?Shortness of breath at rest?denies.?Shortness of breath with exertion?denies.?Wheezing?denies.?Cardiovascular:?Chest pain at rest?denies.?Chest pain with exertion?denies.?Irregular heartbeat?denies.?Shortness of breath?denies.?Gastrointestinal:?Abdominal pain?denies.?Change in bowel habits?denies.?Diarrhea?denies.?Nausea?denies.?Rectal bleeding?denies.?Vomiting?denies .?Genitourinary:?Blood in urine?denies.?Difficulty urinating?denies.?Frequent urination?denies.?Urinary incontinence?Denies.?Musculoskeletal:?Painful joints?denies.?Weakness?denies.?Skin:?Dry skin?denies.?Itching?denies.?Denies?Mole(s),? changes in moles, new moles or any lesions of concern.?Denies?Photosensitivity.?Rash?denies.?Neurologic:?Dizziness?denies.?Fainting?denies.?Headache?denies.? * Medical History:?Moexital if univasc is an helen inhibitor, 06/07/23 colonoscopy, no more required. * Family History:?Father: dece ased 67 yrs.?Mother: 81 yrs.?2 son(s) , 1 daughter(s) . .? Father- RA Mother- cervical cancer, No pertinent family medical history, Denies mental health/substance abuse family history, Denies mental health/substance abuse family history. * Social History:?Tobacco Use:?Tobacco Use/Smoking?Patient is a?nonsmoker,?Additional Findings: Tobacco Non-User?Current non-smoker, currently using no form of tobacco.?Drugs/Alcohol:?Alcohol Screen?Did you have a drink containing alcohol in the past year??Yes,?How often did you have a drink containing alcohol in the past year??4 or more times a week (4 points),?How many drinks did you have on a typical day when you were drinking in the past year??1 or 2 drinks (0 point),?How often did you have 6 or more drinks on one occasion in the past year??Never (0 point),?Points?4,?Interpretation?Positive.?Miscellaneous:?Caffeine: yes, frequency:, 1-2 cups per day. Children: yes. Community involvements: yes. Exercise: yes, walks her dog QD. Home smoke detector use: yes. Housing: renting. Living with: significant other. Occupation: weeks/months/years, works part-time. Pets: cats: dogs:1 dog. Travel outside of the [place]: no. * Medications:?Taking hydroCHL OROthiazide 25 MG Tablet TAKE 1 TABLET BY MOUTH EVERY DAY IN THE MORNING , Taking PARoxetine HCl 20 MG Tablet take 1tablet by mouth every day in the morning Orally Once a day , Taking amLODIPine Besylate 10 MG Tablet TAKE 1 TABLET BY MOUTH EVERY DAY Orally , Taking Valsartan 160 MG Tablet TAKE 1 TABLET BY MOUTH DAILY , Taking Potassium Chloride Frida ER 20 MEQ Tablet Extended Release TAKE 1 TABLET BY MOUTH TWICE DAILY WITH FOOD , Unknown CeleBREX 200 MG Capsule 1 capsule with food Orally Once a day , Unknown Tylenol 8 Hour Arthritis Pain 650 MG Tablet Extended Release 2 tablets as needed Orally every 8 hrs , Unknown Cyclobenzaprine HCl 10 MG Tablet 1 tablet at bedtime as needed Orally Once a day , Medication List reviewed and reconciled with the patient * Allergies:?N.K.D.A. Objective: * Vitals:?Ht: 62.5, Wt: 154, B AZ:27.72, BP:124/80, Wt-k.85. weight is up 2 pounds since 02-24-24. * ???Past Orders: ???Lab:Lipid Panel (Order Da te - 08/18/2024) (Collection Date & Time - 08/18/2024 08:00 AM) ? Value Reference Range ?Triglycerides 93 <150 - mg/dL ?Cholesterol 241 H <200 - m g/dL ?LDL Cholesterol Calculated 126 H <100 - mg/dL ?HDL Cholesterol 97 >40 - mg/dL ???Lab:Complete Blood Count Auto Diff (Order Date - 08/18/2024) (Collection Date & Time - 08/18/2024 08:00 AM) ? Value Reference Range ?White Blood Count 5.5 4. 8-10.8 - X10*3/uL ?Red Blood Count 4.30 4.20 -5.50 - X10*6/uL ?Hemoglobin 13.6 12.0-16.0 - g/dl ?Hematocrit 39.7 37.0-47.0 - % ?Mean Corpuscular Volume 92.3 80.0-98.0 - fL ?Mean Corpuscular Hemoglobin 31.6 27.0-33.0 - pg ?Mean Corpuscular HGB Conc 34.3 31.0-35.0 - g/dl ?Red Cell Distribution Width 12.3 11.0-16.0 - % ?Platelet Count 224 160-4 00 - X10*3/uL ?Mean Platelet Volume 10.3 9.4-12.3 - fL ?Neutrophils Percent Auto 56.9 45-73 - % ?Imm Gran Pct Auto 0.2 0. 0-0.4 - % ?Lymphocytes Percent Auto 27.9 20-40 - % ?Monocytes Percent Auto 11.9 H 2-11 - % ?Eosinophils Percent Auto 2.0 0-4 - % ?Basophils Percent Auto 1.1 0-2 - % ?NRBC Pct Auto 0.0 0.0-0. 2 - /100WBC ?Neutrophils Absolute Auto 3.1 2.0-8.3 - x10*3/uL ?Imm Gran Abs Auto 0.01 0. 00-0.03 - X10*3/uL ?Lymphocytes Absolute Auto 1.5 1.2-4.9 - X10*3/uL ?Monocytes Absolute Auto 0.7 0.1-1.2 - X10*3/uL ?Eosinophils Absolute Auto 0.1 0.0-0.4 - X10*3/uL ?Basophils Absolute Auto 0.1 0.0-0.2 - X10*3/uL ?NRBC Abs Auto 0.000 0.0-0. 012 - X10*3/uL ???Lab:Comprehensive [place]. P jennyfer Fast (Order Date - 08/18/2024) (Collection Date & Time - 08/18/2024 08:00 AM) ? Value Reference Range ?Sodium 140 135-145 - mmo l/L ?Bilirubin Total 0.7 0.0- 1.0 - mg/dL ?Aspartate Amino Transferase 29 5-31 - U/L ?Alanine Aminotransferase 19 0-31 - U/L ?Total Protein 7.4 6.5-8. 0 - g/dL ?Albumin Level 4.1 3.5-5. 0 - g/dL ?Alkaline Phosphatase 78 39-117 - U/L ?Potassium 3.5 3.3-5.1 - mmol/L ?Chloride 107 96-108 - mm ol/L ?Carbon Dioxide 27 22-29 - mmol/L ?Anion Gap 10 L 12-20 - ?Blood Urea Nitrogen 21 H 9-16 - mg/dL ?Creatinine 0.64 0.5-1.4 - mg/dL ?Estimated Glomerular Filt Rate > 60 - ?Glucose Fasting 93 60-9 9 - mg/dL ?Calcium 9.0 8.4-10.2 - m g/dL * Examination: ???General Examination: ?GENERAL APPEARANCE:?well developed, well nourished, in no acute distress.?HEAD:?normocephalic, atraumatic.?EYES:?pupils equal, round, reactive to light and accommodation, sclera non-icteric.?EARS:?normal.?ORAL CAVITY:?mucosa moist.?THROAT:?clear.?NECK/THYROID:?neck supple, full range of motion, no cervical lymphadenopathy, no bruits.?SKIN:?warm and dry, no suspicious lesions.?HEART:?regular rate and rhythm, S1, S2 normal, no murmurs.?LUNGS:?clear to auscultation bilaterally.?BREASTS:?No mass, no lump.?ABDOMEN:?soft, nontender, nondistended, bowel sounds present, normal, no organomegaly , no masses palpable.?RECTAL EXAM:?stool guaiac negative, no masses palpable.?FEMALE GENITOURINARY:?done by low voltage electrician.?EXTREMITIES:?no clubbing, cyanosis, or edema.?NEUROLOGIC:?nonfocal, motor strength normal upper and lower extremities, sensory exam intact.? Assessment: * Assessment: 1.?Annual physical exam - Z0 0.00 (Primary)???2.?Essential hypertension - I10???3.?Diarrhea - R19.7???4.?Dysthymia - F34.1???5.?Colon cancer screening - Z12.11???6.?Depression screening - Z13.31??? Plan: * Treatment: 2.?Essential hypertension? Continue hydroCHLOROthiazide Tablet, 25 MG, TAKE 1 TABLET BY MOUTH EVERY DAY IN THE MORNING;?Continue amLODIPine Besylate Tablet, 10 MG, TAKE 1 TABLET BY MOUTH EVERY DAY, Orally;?Continue Valsartan Tablet, 160 MG, TAKE 1 TABLET BY MOUTH DAILY.?LAB: UA ClnCatch+Micro w/rflx Cult (Collection Date & Time - 08/25/2024 08:30 AM) Notes: stmichaele, will continue current regiment?? 3.?Diarrhea? Notes: referral to dr dowling? Referral To:Daniele Dowling??Gastroenterology ?Reason:diarrhea 4.?Dysthymia? Continue PARoxetine HCl Tablet, 20 MG, take 1tablet by mouth every day in the morning, Orally, Once a day.?? Notes: stable, will continue current regiment?? 5.?Colon cancer screening?LAB: Occult Blood, Stool, Guaiac (Collection Date & Time - 08/25/2024)?Negative ? Value Reference Range ?Occult Blood, Stool, Guaiac Neg Notes: guiac negative??6.?Depression screening? Notes: negative screen?? * Procedure Codes:?91461 TEST FOR BLOOD, FECES * * The named appointment provid er may or may not be the originator of this progress note, and it is not deemed complete until electronically signed by the appointment provider. Sign off status: Pending * Provider:?Aneesh Montesinos MD Date:?0 08/25/2024 Generated for Ely nix/Rachel/Luciaitting on:?08/25/2024 11:28 AM EST History and Physical Notes * HPI [...] had two or more falls in the st year?: No Communication Needs Communication Needs Does the patient have a hearing impairment: No Does the patient have a vision impairmen t?: Yes ?If yes, what is the vision impairment?: Glasses Does the patient have a cognition impair ment?: No Examination Category Sub-Category Detail Notes Category Not es General Examination GENERAL APPEARANCE: well dev eloped, well nourished, in no acute distress HEAD: normocephalic, atrau matic EYES: pupils equal, round, reactive to light and accommodation, sclera non- icteric EARS: normal THROAT: clear NECK/THYROID: neck supple, [...] no masses palpable FEMALE GENITOURINARY: done by low voltage electrician ORAL CAVITY: mucosa moist Consultation Request Notes Referral Date Referring Provider Referred Provider Not es 08/25/2024 Aneesh Montesinos Robert diarrhea
--- OUTSIDE RECORDS SUMMARY | 2024-08-25 11:29 | XMS_ITS ---
Author Organization [facility] Address [address] [place] [address] Care Team Providers Care Hitting Coach Name Role Phone Aneesh Montesinos MD Primary Care Provider Daniele Ward Unavailable [phone] Allergies No Known Allergies REASON FOR VISIT Patient presents today for a COLON SCREENING Medications Medication SIG (Take, Route, Frequency, Duration) [...] for 30 stopping as of 03/19/23 Active Social History Tobacco Use: Social History [...] Never (0 point) Points 4 Interpretation Positive Section Notes: 2 or 3 glassess of wine, non smoker Problems Problem Type SNOMED Code ICD Code Onset Dates Problem Status W/U Status Risk Notes Problem 309094640 Colon cancer screening (Z12.11) Active confirmed Problem [id number] Preprocedural examination (Z01.818) Active confirmed Vital Signs Temperature 96.9 degrees Fahrenheit 03/17/20 23 Blood pressure systolic 000 mm Hg 03/17/20 23 Blood pressure diastolic 00 mm Hg 023 Height 5 ft 2.5 in in 03/17/2023 Weight 147 lbs 03/17/2023 BMI 26.46 kg/m2 03/17/2023 Encounters Encounter Location Date Provider Diagnosis [facility] [address] [place] [address] 03/17/2023 Daniele Palacio Colon cancer screeni ng Z12.11 and Preprocedural examination Z01.818 Assessments Encounter Date Diagnosis (ICD Code) Assessment Notes Treatment Notes Treatment Clinical Notes Section Notes 03/17/2023 Colon cancer screening (ICD-10 - Z12.11) Do not take the Hydrochlorothiazide or Potassium the day before nor on the day of the colonoscopy Overall, Destiny appears quite well. Given her age, excellent clinical appearance, and her last colonoscopy being 10 years ago, I did recommend a followup colonoscopy for further screening purposes. We did review the rationale for that in regard to colon cancer prevention. Full consent was obtained for this, including risks of bleeding and perforation. The procedure will be done withmonitored anesthesia care. She was given the below instructions regarding adjustment of her medications for the procedure. Destiny was comfortable with this plan. Thank you again for allowing me to participate in Destiny's care. I shall continue to keep you advised of her progress. 03/17/2023 Preprocedural examination (ICD-10 - Z01.818) Overall, Destiny appears quite well. Given her age, excellent clinical appearance, and her last colonoscopy being 10 years ago, I did recommend a followup colonoscopy for further screening purposes. We did review the rationale for that in regard to colon cancer prevention. Full consent was obtained for this, including risks of bleeding and perforation. The procedure will be done withmonitored anesthesia care. She was given the below instructions regarding adjustment of her medications for the procedure. Destiny was comfortable with this plan. Thank you again for allowing me to participate in Destiny's care. I shall continue to keep you advised of her progress. Plan Of Treatment Treatment Notes Assessment Notes Colon cancer screening Do not take the H ydrochlorothiazide or Potassium the day before nor on the day of the colonoscopy Future Test Test Name Order Date COLONOSCOPY 03/17/2023 Next Appt Details Follow Up: prn, Reason: Progress Notes * DESTINY MARRERO LDOB:[birth year] (72 yo F)Acc No.[id number]:03/17/2023 Progress Notes Patient:?DESTINY MARRERO Provider:?Daniele Palacio MD :1950???Age:72 Y???Sex:Female D ate:03/17/2023 Address:[address] [place] [address] Pcp:Aneesh Montesinos MD Subjective: * Chief Complaints: * ???Patient presents today fo r a COLON SCREENING * HPI: ???incontinence:? I saw Destiny in the office today for evaluation of colorectal cancer screening. ?As you know, Destiny is a generally healthy 72-year-old female who feels well. She enjoys a good appetite, without any significant heartburn or dysphagia. Her bowel movements have been regular, without any signs of bleeding. She denies any abdominal pain, jaundice, nor weight loss. She denies any known family history of colon cancer. ?She describes having had a negative colonoscopy at age 52 and at age 62 while living in [place], [place]. * ROS:?General/Constitutional:?Change in appetite?denies.?Chills?denies.?Fatigue?denies.?Ophthalmologic:?Comments?all negative.?ENT:?Comments?all negative.?Respiratory:?hemoptysis?denies.?Cough?denies.?Cardiovascular:?Chest pain?denies.?Orthopnea?denies.?Gastrointestinal:?Comments?See HPI for details.?Genitourinary:?Hematuria?denies.?Dysuria?denies.?Musculoskeletal:?Painful joints?denies.?Weakness?denies.?Skin:?Itching?denies.?Rash?denies.?Neurologic:?Headache?denies.?Seizures?denies.?Psychiatric:?Comments?all negative.? * Medical History:? * Surgical History:?BTL * Hospitalization/Major Diagno stic Procedure:? * Family History:?Father: dece ased, diagnosed with HTN (hypertension).?Mother: , diagnosed with HTN (hypertension).? No family history of colon cancer. * Social History:?Tobacco Use:?Tobacco Use/Smoking?Patient is a?nonsmoker.?Drugs/Alcohol:?Alcohol Screen?Did you have a drink containing alcohol [...] one occasion in the past year??Never (0 point),?Points?4,?Interpretation?Positive.?2 or 3 glassess of wine, nonsmoker. * Medications:?TakinghydroCHLO ROthiazide 25 MG Tablet TAKE 1 TABLET BY MOUTH EVERY DAY IN THE MORNING Oral amLODIPine Besylate 5 MG Tablet TAKE 1 TABLET BY MOUTH EVERY DAY Oral Celecoxib 200 MG Capsule TAKE 1 CAPSULE BY MOUTH EVERY DAY WITH FOOD Oral , Notes: stopping as of 03/19/23PARoxetine HCl 20 MG Tablet TAKE 1 TABLET BY MOUTH EVERY DAY IN THE MORNING Oral , Notes: F341,UnavailableGabapentin 100 MG Capsule Oral , Notes: stopping as of 03/19/23Potassium Chloride Frida ER 20 MEQ Tablet Extended Release TAKE 1 TABLET BY MOUTH TWICE DAILY WITH FOOD Oral Moexipril HCl 15 MG Tablet TAKE 2 TABLETS BY MOUTH EVERY DAY Oral Taking hydroCHLOROthiazide 25 MG Tablet TAKE 1 TABLET BY MOUTH EVERY DAY IN THE MORNING Oral Taking amLODIPine Besylate 5 MG Tablet TAKE 1 TABLET BY MOUTH EVERY DAY Oral Taking Celecoxib 200 MG Capsule TAKE 1 CAPSULE BY MOUTH EVERY DAY WITH FOOD Oral , Notes: stopping as of 03/19/23Taking PARoxetine HCl 20 MG Tablet TAKE 1 TABLET BY MOUTH EVERY DAY IN THE MORNING Oral , Notes: F341,UnavailableTaking Gabapentin 100 MG Capsule Oral , Notes: stopping as of 03/19/23Taking Potassium Chloride Frida ER 20 MEQ Tablet Extended Release TAKE 1 TABLET BY MOUTH TWICE DAILY WITH FOOD Oral Taking Moexipril HCl 15 MG Tablet TAKE 2 TABLETS BY MOUTH EVERY DAY Oral Not-Taking/PRNIbuprofen 800 MG Tablet Oral Medication List reviewed and reconciled with the patientNot-Taking/PRN Ibuprofen 800 MG Tablet Oral Medication List reviewed and reconciled with the patient * Allergies:?N.K.D.A.yes[Aller gies Verified] Objective: * Vitals:?Wt: 147 lbs, Ht: 5 f t 2.5 in, BMI:26.46 Index, BP: 000/00 mm Hg, Temp: 96.9. * Examination: ???General Examination: ?GENERAL APPEARANCE:?pleasant, well nourished, well developed, in no acute distress.?EYES:?sclera non-icteric.?ORAL CAVITY:?mucosa moist.?NECK/THYROID:?no cervical lymphadenopathy, neck supple.?SKIN:?nonjaundiced, no spider angiomata.?HEART:?S1, S2 normal.?LUNGS:?clear to auscultation bilaterally.?ABDOMEN:?normal bowel sounds, no guarding or rigidity, no guarding or rigidity, no masses palpable, soft, nontender, nondistended.?EXTREMITIES:?no edema.?NEUROLOGIC:?alert and oriented.? Assessment: * Assessment: 1.?Preprocedural examination - Z01.818 (Primary)?2.?Colon cancer screening - Z12.11? Overall, Destiny appears quite well. Given her age, excellent clinical appearance, and her last colonoscopy being 10 years ago, I did recommend a followup colonoscopy for further screening purposes. We did review the rationale for that in regard to colon cancer prevention. Full consent was obtained for this, including risks of bleeding and perforation. The procedure will be done withmonitored anesthesia care. She was given the below instructions regarding adjustment of her medications for the procedure. Destiny was comfortable with this plan. Thank you again for allowing me to participate in Destiny's care. I shall continue to keep you advised of her progress. Plan: * Treatment: Notes: Do not take the Hydrochlorothiazide or Potassium the day before nor on the day of the colonoscopy.?? * Procedure Codes:?3017F COLOR ECTAL CA SCREEN DOC [id number] TOBACCO [id number] BP SCR NOT PRFRM REC REASON NOS * Preventive Medicine:? ??Counseling:?Care goal follow-up plan:?Above Normal BMI Follow-up?Giving encouragement to exercise,?BMI management provided?Yes.? ??Urinary Incontinence:?Urinary Incontinence?Assessment:?Absent,?Plan of care documented:?No, reason not specified.? * Follow Up:?prn * * Sign off status: Completed true * Provider:?Daniele Palacio MD Date:? 023 Generated for Ely nix/Rachel/Trsmitting on:?08/25/2024 11:29 AM EST History and Physical Notes * HPI (History of Present Illness) Category Sub-Category Detail Notes Category Not es incontinence I saw Destiny in the office today for evaluation of colorectal cancer screening. As you know, Destiny is a generally healthy 72-year-old female who feels well. She enjoys a good appetite, without any significant heartburn or dysphagia. Her bowel movements have been regular, without any signs of bleeding. She denies any abdominal pain, jaundice, nor weight loss. She denies any known family history of colon cancer. She describes having had a negative colonoscopy at age 52 and at age 62 while living in [place], [place]. Examination Category Sub-Category Detail Notes Category Not es General Examination GENERAL APPEARANCE: pleasant , well [...]
--- OUTSIDE RECORDS SUMMARY | 2024-08-25 11:29 | XMS_ITS ---
Author Organization Aneesh Montesinos MD Address [address] [place], [place] [id number] Care Team Providers Care Breakfast Bar Attendant Name Role Phone Aneesh Montesinos Primary Care Provider Results Component Value Reference Range Notes Complete Blood Count Auto Di ff Reviewed date:08/18/2024 12:40:10 PM Interpretation: Performing Lab:[facility], [address] [place] [phone] Notes/Report: White Blood Count 5.5 4.8-10.8 X10*3/uL [...] X10*3/uL NRBC Abs Auto 0.000 0.0-0.012 X10*3/uL Comprehensive [place]. Panel Fa st Reviewed date:08/18/2024 04:38:31 PM Interpretation: Performing Lab:[address] [address] Notes/Report: Sodium 140 135-145 mmol/L Potassium 3.5 [...] 3.5-5.0 g/dL Alkaline Phosphatase 78 39-117 U/L Lipid Panel Reviewed date:08/18/2024 12:34:23 PM Interpretation: Performing Lab:[address] [address] Notes/Report: Triglycerides 93 <150 mg/dL Desirable Triglyceride: [...] Location Date Provider Diagnosis Aneesh Montesinos MD [address] [place] [address] [place] [phone] 08/18/2024 Aneesh Montesinos Blood tests for routine general physical examination Z00.00 and Essential hypertension I10 Assessments Encounter Date Diagnosis (ICD Code) Assessment Notes Treatment Notes Treatment Clinical Notes Section Notes 08/18/2024 Blood tests for routine general physical examination (ICD-10 - Z00.00) 08/18/2024 Essential hypertension (ICD-10 - I10) Plan Of Treatment Pending Test Test Name Order Date UA ClnCatch+Micro w/rflx Cult 08/18/2024 Next Appt Details Provider Name:Aneesh fang, 08/23/2025 07:15:00 AM, [address] [place] [address], Suite [facility], [place], [place], [id number], Provider Name:Aneesh fang, 08/30/2025 08:30:00 AM, [address] [place] [address], [place] [address], [place], [place], [phone], Progress Notes * Destiny OSHEA LDOB:[birth year] (74 yo F)Acc No.[id number]:08/18/2024 Progress Note Patient:?Destiny OSHEA Provider:?Aneesh Montesinos MD :1950???Age:74 Y???Sex:Female D ate:08/18/2024 [facility] Subjective: * Chief Complaints: * ???1. FASTING LABS. * Medical History:? Objective: * Vitals:? Assessment: * Assessment: 1.?Blood tests for routine g eneral physical examination - Z00.00 (Primary)???2.?Essential hypertension - I10??? Plan: * Treatment: 2.?Essential hypertension?LAB: UA ClnCatch+Micro w/rflx Cult ?LAB: Complete Blood Count Auto Diff (Collection Date & Time - 08/18/2024 08:00 AM) ?LAB: Comprehensive [place]. Panel Fast (Collection Date & Time - 08/18/2024 08:00 AM) ?LAB: Lipid Panel (Collection Date & Time - 08/18/2024 08:00 AM) * Procedure Codes:?34153 VENIP UNCT, ROUTINE* * * The named appointment provid er may or may not be the originator of this progress note, and it is not deemed complete until electronically signed by the appointment provider. Sign off status: Pending * Provider:?Aneesh Montesinos MD Date:?0 08/18/2024 Generated for Ely nix/Rachel/eTransmitting on:?08/25/2024 11:29 AM EST
--- OUTSIDE RECORDS SUMMARY | 2024-08-25 11:29 | XMS_ITS ---
Author Organization [facility] Address [address] [place] [address] Care Team Providers Care Retail Special Event Associate Name Role Phone Aneesh Montesinos MD Primary Care Provider Daniele Ward [phone] REASON FOR VISIT screening Problems Problem Type SNOMED Code ICD Code Onset Dates Problem Status W/U Status Risk Notes Problem Diverticular disease of colon (890442417) Diverticulosis of large intestine without perforation or abscess without bleeding (K57.30) Active confirmed Encounters Encounter Location Date Provider Diagnosis [facility] [address] [place], [place] [id number] 06/07/2023 Daniele Palacio Encounter for scre ening colonoscopy Z12.11 ; Diverticulosis of large intestine without perforation or abscess without bleeding K57.30 and Internal hemorrhoids K64.8 Assessments Encounter Date Diagnosis (ICD Code) Assessment Notes Treatment Notes Treatment Clinical Notes Section Notes 06/07/2023 Encounter for screening colonoscopy (ICD-10 - Z12.11) 06/07/2023 Diverticulosis of large intestine without perforation or abscess without bleeding (ICD-10 - K57.30) 06/07/2023 Internal hemorrhoids (ICD-10 - K64.8) Plan Of Treatment No Information Progress Notes * STEPH MARRERO LDOB:[birth year] (74 yo F)Acc No.[id number]:06/07/2023 COLON WITH MAC Patient:?STEPH MARRERO Provider:?Daniele Palacio MD :1950???Age:73 Y???Sex:Female D ate:06/07/2023 Address:[address] [place] [address] [address] , [id number] Pcp:Aneesh Montesinos MD Subjective: * Chief Complaints: * ???1. Screening. * Medical History:? Objective: * Vitals:? Assessment: * Assessment: 1.?Encounter for screening c olonoscopy - Z12.11 (Primary)???2.?Diverticulosis of large intestine without perforation or abscess without bleeding - K57.30???3.?Internal hemorrhoids - K64.8??? Plan: * Treatment: * Procedure Codes:?G0121 COLOR EC CNCR SCR;COLNSCPY NO HI RSK, 0529F INTRVL 3+YRS PTS CLNSCP DOCD, Modifiers: 8P , 0528F RCMND FLW-UP 10 YRS DOCD, Modifiers: 1P * * The named appointment provid er may or may not be the originator of this progress note, and it is not deemed complete until electronically signed by the appointment provider. Sign off status: Pending * Provider:?Daniele Palacio MD Date:? 023 Generated for Ely nix/Rachel/eTransmitting on:?08/25/2024 11:29 AM EST
--- OUTSIDE RECORDS SUMMARY | 2024-08-25 11:29 | XMS_ITS | Patient Health Record ---
Author Organization Aneesh Montesinos MD Address [address] [place] [id number] Care Team Providers Care Seismic Survey Assistant Name Role Phone Aneesh Montesinos Primary Care Provider Allergies No Known Allergies Results Component Value Reference Range Notes MM tomosynthesis screening B I Reviewed date:11/23/2023 12:16:26 PM Interpretation: Performing Lab: Notes/Report: [address] [place] [address] Mammography Report Signed Patient: Destiny Oshea MR#: [id number] : 1950 Acct:[id number] Age/Sex: 73 / F ADM Date: 11/12/23 Loc: HO.MAMMO Attending Dr: Aneesh Montesinos MD Ordering Physician: Aneesh Montesinos MD Results: 1Ne gative Date of Service: 11/12/23 Follow Up: 1 Year From Orig ina Mammogram Procedure(s): MM tomosynthesis screening BI Accession Number(s): [id number] cc: Aneesh Montesinos MD EXAMINATION: MM SCREENING DIGITAL BREAST TOMOSYNTHESIS, BILATERAL CLINICAL INFORMATION: Screening. Asymptomatic. COMPARISON: Outside mammography: 12/25/2021, 12/08/2019, 09/14/2018, 09/13/2017 ([facility], [place], [place]). TECHNIQUE: Digital breast tomosynthesis is performed [...] in OV> 11/22/23 1011 DD/ 0735 TD/TT: Hot Plate Press Operator: [place] [address] [place] [address] Mammography Report Signed Patient: Winnie Oshea MR#: [id number] : 1950 Acct:[id number] Age/Sex: 73 / F ADM Date: 11/12/23 Loc: HO.MAMMO Attending Dr: Aneesh Montesinos MD Ordering Physician: Aneesh Montesinos MD Results: 1Ne gative Date of Service: 11/12/23 Follow Up: 1 Year From Orig ina Mammogram Procedure(s): MM tomosynthesis screening BI Accession Number(s): [id number] cc: Aneesh Montesinos MD EXAMINATION: MM SCREENING DIGITAL BREAST TOMOSYNTHESIS, BILATERAL CLINICAL INFORMATION: Screening. Asymptomatic. COMPARISON: Outside mammography: 12/25/2021, 12/08/2019, 09/14/2018, 09/13/2017 ([facility], [place], [place]). TECHNIQUE: Digital breast tomosynthesis is performed [...] in OV> 11/22/23 1011 DD/ 0735 TD/TT: Hot Plate Press Operator: Complete Blood Count Auto Di ff Reviewed date:08/18/2024 12:40:10 PM Interpretation: Performing Lab:[facility], [address] [place] [phone] Notes/Report: White Blood Count 5.5 4.8-10.8 X10*3/uL [...] NRBC Abs Auto 0.000 0.0-0.012 X10*3/uL Comprehensive [place]. Panel Fa st Reviewed date:08/18/2024 04:38:31 PM Interpretation: Performing Lab:[facility], [address] [place] [address] Notes/Report: Sodium 140 135-145 mmol/L Potassium 3.5 [...] Panel Reviewed date:08/18/2024 12:34:23 PM Interpretation: Performing Lab:[facility], [address] [place] [address] Notes/Report: Triglycerides 93 <150 mg/dL Desirable Triglyceride: [...] low results in patients with liver disease. UA ClnCatch+Micro w/rflx Cul t (Not yet reviewed by provider) Interpretation: Performing Lab:[facility], [address] [place] [phone] Notes/Report: Urine, Clean Catch Color Urine Yellow Appearance Urine Clear PH 5.5 5.0-9.0 Glucose Urine UA Negative Negative mg/dL Urine Blood Negative Negative Specific Scheller - Urine 1.025 1.005-1.025 Urine Protein Negative [...] Stool, Guaiac Neg Reason For Referral Reason loud snorning Diagnosis [...] > left message for a called back Kenton Annette 10/19/2023 03:39:39 PM EDT > [facility] office [address], [place] 10/21/2023 11:10:52 AM EDT > info mailed to patient Referral Priority Routine Referral Appointment Date 01/05/2024 Reason diarrhea Diagnosis 1 Diarrhea (R19.7) Referral Organization Aneesh Montesinos MD Referring Provider First Name Aneesh Referring Provider Last Name Jaguar Referring Provider Speciality Internal M edicine Referred Provider Daniele Dowling Referred Provider Specialty Gastroentero logy Referral Priority Routine Medications Medication SIG (Take, Route, Frequency, Duration) Notes Start Date End Date Status amLODIPine Besylate 10 MG TAKE 1 TABLET BY MOUTH EVERY DAY Orally Active Tylenol 8 Hour Arthritis Bhupinder n 650 MG 2 tablets as needed Orally every 8 hrs Unknown Valsartan 160 MG TAKE 1 TABLET [...] Problem Status W/U Status Risk Notes Problem [id number] Primary osteoarthritis, right hand (M19.041) Active confirmed Problem 100393082 Lumbar disc disease (M51.9) Active confirmed Problem 08737641 Essential hypertension (I10) Active confirmed Problem 56007447 Dysthymia (F34.1) Active confirmed Problem 70881014 Sciatica of right side (M54.31) Active confirmed Problem 87068675 Peptic ulcer disease (K27.9) Active confirmed Problem 43762618 Uncontrolled hypertension (I10) Active confirmed Problem 56398498 Hip arthritis (M16.10) Active confirmed Problem 586008105 Cervical arthritis (M47.812) Active confirmed Vital Signs Blood pressure diastolic 80 mm Hg 08/25/2024 bro ght is up 2 pounds since 02-24-24 Height 62.5 in 08/25/2024 weight is up 2 pounds since 02-24-24 Blood pressure systolic 124 mm Hg 08/25/2024 weig ht is up 2 pounds since 02-24-24 Weight 154 lbs 08/25/2024 weight is up 2 pounds since 02-24-24 BMI 27.72 kg/m2 08/25/2024 weight is up 2 pounds since 02-24-24 Encounters Encounter Location Date Provider Diagnosis Aneesh Montesinos MD [address] [place] [address] Drive [address] [place] [id number] 08/18/2024 Aneesh Montesinos Blood tests for routine general physical examination Z00.00 and Essential hypertension I10 Aneesh Montesinos MD [address] [place] [address] Drive [address] [place] [id number] 08/25/2024 Aneesh Montesinos Essential hypertension I10 ; Annual physical exam Z00.00 ; Diarrhea R19.7 ; Dysthymia F34.1 ; Colon cancer screening Z12.11 and Depression screening Z13.31 Aneesh Montesinos MD [address] [place] [id number] 08/30/2023 Aneesh Montesinos Dysthymia F34.1 and Hip arthritis M16.10 Aneesh Montesinos MD [address] [place] [address] [address] [place] [id number] 02/24/2024 Aneesh Montesinos Dysthymia F34.1 ; Essential hypertension I10 and Hip arthritis M16.10 Aneesh Montesinos MD [address] [place] [id number] 05/25/2024 Aneesh Montesinos Essential hypertension I10 Aneesh Montesinos MD [address] [place] [id number] 01/13/2024 Aneesh Montesinos MD [address] [place] [address] [address] [place] [id number] 06/22/2024 Aneesh Montesinos Assessments Encounter Date Diagnosis (ICD Code) Assessment Notes Treatment Notes Treatment Clinical Notes Section Notes 08/18/2024 Blood tests for routine general physical examination (ICD-10 - Z00.00) 08/25/2024 Essential hypertension (ICD-10 - I10) stbale, will continue current regiment 08/25/2024 Annual physical exam (ICD-10 - Z00.00) labs reviewed and discussed with patient 08/30/2023 Dysthymia (ICD-10 - F34.1) complete 08/30/2023 Hip arthritis (ICD-10 - M16.10) going to have a replacement 02/24/2024 Dysthymia (ICD-10 - F34.1) doing well since hip was replaced 02/24/2024 Essential hypertension (ICD-10 - I10) well controlled 05/25/2024 Essential hypertension (ICD-10 - I10) doing well on meds 08/18/2024 Essential hypertension (ICD-10 - I10) 08/25/2024 Diarrhea (ICD-10 - R19.7) referral to dr dowling 02/24/2024 Hip arthritis (ICD-10 - M16.10) was replaced and is doing well 08/25/2024 Dysthymia (ICD-10 - F34.1) stable, will continue current regiment 08/25/2024 Colon cancer screening (ICD-10 - Z12.11) guiac negative 08/25/2024 Depression screening (ICD-10 - Z13.31) negative screen 05/25/2024 Other patient has never been diagnosed with sleep apnea, has never had a sleep study, and doesn't use a cpap machine Plan Of Treatment Pending Test Test Name Order Date XR CHEST 2 VIEW PA & LAT 01/19/2022 XR GI SERIES 05/21/2023 UA ClnCatch+Micro w/rflx Cult 08/18/2024 UA ClnCatch+Micro w/rflx Cult 08/25/2024 Next Appt Details Provider Name:Aneesh Rubio ier, 08/23/2025 07:15:00 AM, [address], [address], [place], [place], [phone], Provider Name:Aneesh Rubio ier, 08/30/2025 08:30:00 AM, [address], [address], [place], [place], [phone], Insurance Providers Payer Name Payer Address Payer Phone Subscriber Number Group Number Insured Name Patient Relationship to Insured Coverage Start Date Coverage End Date [facility] are [employer] [address] [address] [place] [address] [id number] Destiny Oshea Self - patient is the insured Medical (General) History Medical History History ICD Code moexital if univasc is an helen inhibitor 06/07/23 colonoscopy, no more required
--- OUTSIDE RECORDS SUMMARY | 2024-08-25 11:29 | XMS_ITS | Patient Health Record ---
Author Organization [facility] Address [address] [place] [address] Care Team Providers Care Deputy Sheriff Custody Name Role Phone Jaguar VALENZUELA, Aneesh Primary Care Provider Daniele Ward Unavailable [phone] Allergies No Known Allergies Reason For Referral No Information Medications Medication SIG (Take, Route, Frequency, Duration) [...] MORNING Oral for 60 F341,Unavailab le Active Immunizations Vaccine Route Administration Date Status Comme nts Influenza Unknown 03/10/2022 Administered Social History Tobacco Use: Social History Observation [...] Problem Status W/U Status Risk Notes Problem 658961073 Colon cancer screening (Z12.11) Active confirmed Problem Diverticular disease of colon (189127634) Diverticulosis of large intestine without perforation or abscess without bleeding (K57.30) Active confirmed Problem 594334325026747 Preprocedural examination (Z01.818) Active confirmed Plan Of Treatment Future Test Test Name Order Date COLONOSCOPY 03/17/2023 Insurance Providers Payer Name Payer Address Payer Phone Subscriber Number Group Number Insured Name Patient Relationship to Insured Coverage Start Date Coverage End Date [employer] ([employer]O) [address] [address] [place] [address] [id number] STEPH MARRERO Self - patient is the insured Medical (General) History Medical History History ICD Code HTN Anxiety/depression Denies OK,DM,CVA,Lung disease,renal dise ase Negative colonoscopies at age 52 and age 62 in [place], [place] Back and right hip pain Surgical History Surgery Date(Month/Year) BTL
--- OUTSIDE RECORDS SUMMARY | 2024-08-25 11:30 | XMS_ITS | Patient Health Record ---
Author Organization [facility] [place] Address [address] [place] [address] Care Team Providers Care Veterinary Medical Officer Name Role Phone Aneesh Montesinos MD Primary Care Provider Lexy Medina Unavailable [phone] Reason For Referral No Information Social History [...] Negative Encounters Encounter Location Date Provider Diagnosis [facility] [address] [place] [address] 07/03/2024 Lexy Wei Plan Of Treatment Next Appt Details Provider Name:Lexy marcano, 09/05/2024 08:30:00 AM, [address] [place], [address], Insurance Providers Payer Name Payer Address Payer Phone Subscriber Number Group Number Insured Name Patient Relationship to Insured Coverage Start Date Coverage End Date [employer] Medicare Adv-[id number] [address] [address] [place] [address] [phone] [id number] Destiny Oshea Self - patient is the insured Medical (General) History Medical History History ICD Code Arthritis covid-19 Depression High Blood Pressure Measles Chicken pox Joint implants/screws Surgical History Surgery Date(Month/Year) hip replacement 09/22/23
--- OUTSIDE RECORDS SUMMARY | 2024-08-25 11:30 | XMS_ITS | Data Portability ---
Author Organization [facility], [facility] Address [address] [place] [address] Care Team Providers Care Synthetic Department Supervisor Name Role Phone LYNDSEY FRANKEL Primary Care Provider [phone] Assessment Encounter Date Assessment Date Assessment LastModified [...] - 210 RTHR 2V P/O 2023 024 [email or web address] [facility], [address], [place], [address], 4 08:18:07 XR, hip + pelvis, unilatera l, 2 or 3 view - rm 4 2023 024 BEE [facility], [address], [address], [place], [address], 4 13:18:09 XR, cervical spine, 1 view - room 220 lateral cervical 2023 024 essenger [facility], [address], [address], [place], [address], 4 16:02:39 XR, shoulder, 2 or more view - room 220 right shoulder/ lateral cervical 2023 024 [email or web address] [facility], [address], [address], [place], [address], 4 16:02:39 XR, hip, unilatera l, 2 or 3 view - 4 wk post op RTHR AL room 219 2023 024 [email or web address] [facility], [address], [address], [place], [address], 4 12:19:38 XR, hip, unilatera l, 2 or 3 view - ROOM 201, 1st post op RTHR AL 2023 024 [email or web address] 7 [facility], [address], [address], [place], [address], 4 09:45:11 Medication Orders amoxicill in 500 mg capsule 2023 024 flaquita [id number], [address], [place], [id number], 4 10:13:30 meloxicam 15 mg tablet 2023 024 BEE [facility] #[id number], [address], [place], [phone], 4 10:02:05 Patient TargetsNo targets recorded. Patient Instructions Encounter Date Encounter Id Patient Instructions Last Modified By Organization Details Last Modified Time 01/04/2024 [id number] sacroiliac pain: exercises mmolpelton Not available 01/04/2024 13:49:33 Reason for Referral Physical Therapist Referral for Inflammation of sacroiliac joint DX SI JOINT Referring Physician: Beth Richmond, Orthopedic Surgery, [id number] Encounter Date: 01/04/2024 Results Created Date Observation Date Name Description Value Unit Range Abnormal Flag Note LastModifiedBy Organization Detail LastModifiedTime 12/21/19 24 12/21/2023 XR, cervi jamaal spine , 1 view [email or web address]:/ [email or web address] ?Encry pted=s hAaTro YD8dLq bEUv6g %2BXZw aYqtaq 0bqfl% 2Fg9IQ a4ajBk vP9nXo QUaueC m3YtLR FvZlgJ JJ8mAn HZtai3 0q4723 AC0Kpa H6GWKr eUC8mr 84%3D INTERFACE [facility] [address], [place], [address], 12/21/2023 14:52:16 12/21/19 24 12/21/2023 XR, cervi jamaal spine , 1 view [email or web address] ?Encry pted=s hAaTro YD8dLq bEUv6g %2BXZw aYqtaq 0bqfl% 2Fg9IQ a4ajBk vP9nXo QUaueC m3YtLR FvZlgJ JJ8mAn HZtai3 7p0484 AC0Kpa H6GWKr eUC8mr 84%3D INTERFACE [facility] [address], [place], [address], 12/21/2023 14:52:18 12/21/19 24 12/21/2023 XR, shoul albaro, 2 or more view [email or web address] ?Encry pted=s hAaTro YD8dLq bEUv6g %2BXZw aYqtaq 0bqfl% 2Fg9IQ a4ajBk vP9nXo QUaueC m3YtLR FvZlgJ JJ8mAn HZtai3 1b0925 AC0Kpa H6GWaX eUC8mr 84%3D INTERFACE [facility] [address], [place], [address], 12/21/2023 14:55:41 12/21/19 24 12/21/2023 XR, shoul albaro, 2 or more view [email or web address] ?Encry pted=s hAaTro YD8dLq bEUv6g %2BXZw aYqtaq 0bqfl% 2Fg9IQ a4ajBk vP9nXo QUaueC m3YtLR FvZlgJ JJ8mAn HZtai3 8p0960 AC0Kpa H6GWaX eUC8mr 84%3D INTERFACE [facility] [address], [place], [address], 12/21/2023 14:55:44 01/04/20 24 01/04/2024 XR, hip + pelvi s, unila teral , 2 or 3 view [email or web address]:/ [email or web address] ?Encry pted=s hAaTro YD8dLq bEUv6g %2BXZw aYqtaq 0bqfl% 2Fg9IQ a4ajBk vP9nXo QUaueC m3YtLR FvZl JJ8Ingalls HZtai3 0q5423 AC0Kpb X%2BBU 6XeUC8 mr84%3 D INTERFACE [facility] [address], [place], [address], 01/04/2024 13:18:09 01/04/20 24 01/04/2024 XR, hip + pelvi s, unila teral , 2 or 3 view [email or web address]:/ [email or web address] ?Encry pted=s hAaTro YD8dLq bEUv6g %2BXZw aYqtaq 0bqfl% 2Fg9IQ a4ajBk vP9nXo QUaueC m3YtLR FvZl JJ8mAn HZtai3 3j9604 AC0Kpb X%2BBU 6XeUC8 mr84%3 D INTERFACE [facility] [address], [place], [address], 01/04/2024 13:18:12 02/10/20 24 02/10/2024 XR, hip + pelvi s, unila teral , 2 or 3 view [email or web address]:/ [email or web address] ?Encry pted=s hAaTro YD8dLq bEUv6g %2BXZw aYqtaq 0bqfl% 2Fg9IQ a4ajBk vP9nXo QUaueC m3YtLR FvZlgJ JJ8mAn HZtai3 3t4215 AC0Kra HmFUaP eUC8mr 84%3D INTERFACE [facility] [address], [place], [address], 02/10/2024 10:09:40 02/10/20 24 02/10/2024 XR, hip + pelvi s, unila teral , 2 or 3 view [email or web address] ?Encry pted=s hAaTro YD8dLq bEUv6g %2BXZw aYqtaq 0bqfl% 2Fg9IQ a4ajBk vP9nXo QUaueC m3YtLR FvZlgJ JJ8mAn HZtai3 0f1874 AC0Kra HmFUaP eUC8mr 84%3D INTERFACE [facility] [address], [place], [address], 02/10/2024 10:09:42 Result Notes None recorded. Problems Name Problem SNOMED Code Status Onset Date Resolution Date Notes Provider Name and Address Organization Details Recorded Time Pain of right shoulder joint 3506610777031 9100 Active 2023 Darrin Perkins PA-C [address], [place], [address], [facility] 4 14:45:02 Neck pain 39130619 Active 2023 Darrin Perkins PA-C [address], [place], [address], [facility] 4 14:45:39 Localized, primary osteoarthri tis of the shoulder region 188009271 Active 2023 Darrin Perkins PA-C [address], [place], [address], [facility] 4 15:09:44 Inflammatio n of sacroiliac joint 30980767 Active 2023 Beth randhawa PA-C [address], [place], [address], [facility] 4 13:48:44 Osteoarthri tis of right hip joint 1809112018954 07 Active 2023 yoly da silva [place] - [facility] 11:38:31 Problem Notes None recorded. Procedures Surgical History None recorded. Imaging Results Imaging Date Name Status LastModified by Organiz ation Details LastModified Time 12/21/2023 XR, cervical spine, 1 view completed INTERFACE [facility] [address], [place], [address], 12/21/2023 14:52:16 12/21/2023 XR, cervical spine, 1 view completed INTERFACE [facility] [address], [place], [address], 12/21/2023 14:52:18 12/21/2023 XR, shoulder, 2 or more view completed INTERFACE [facility] [address], [place], [address], 12/21/2023 14:55:41 12/21/2023 XR, shoulder, 2 or more view completed INTERFACE [facility] [address], [place], [address], 12/21/2023 14:55:44 01/04/2024 XR, hip + pelvis, unilateral, 2 or 3 view completed INTERFACE [facility] [address], [place], [address], 01/04/2024 13:18:09 01/04/2024 XR, hip + pelvis, unilateral, 2 or 3 view completed INTERFACE [facility] [address], [place], [address], 01/04/2024 13:18:12 02/10/2024 XR, hip + pelvis, unilateral, 2 or 3 view completed INTERFACE [facility] [address], [place], [address], 02/10/2024 10:09:40 02/10/2024 XR, hip + pelvis, unilateral, 2 or 3 view completed INTERFACE [facility] [address], [place], [address], 02/10/2024 10:09:42 Procedure Notes None recorded. Medical Equipment None Reported. Allergies No known drug allergies Medications Name Sig Start Date Stop Date Status Note LastModified by Organization Details LastModified Time Prescriptio n - New 10/28 completed BETA TESTER 2023 Not Available Not Available Not Available [...] Updated DateTime 10/06/2023 157.48 cm 26.9 kg/m2 64787.8 g Afshin Coy PA-C [address], [place], [address], [facility] 10/06/2023 08:44:18 Date Recorded Body height Body mass index (BMI) Body weight Provider Name and Address Organization Details Last Updated DateTime 10/29/2023 157.48 cm 26.9 kg/m2 30804.08 g EDEL GONZALEZ [facility] 10/29/2023 09:18:13 Date Recorded Body height Body mass index (BMI) Body weight Provider Name and Address Organization Details Last Updated DateTime 12/21/2023 157.48 cm 26.9 kg/m2 70859.08 g Darrin Perkins PA-C [address], [place], [address], [facility] 12/21/2023 14:44:19 Date Recorded Body height Body mass index (BMI) Body weight Provider Name and Address Organization Details Last Updated DateTime 01/04/2024 157.48 cm 26.9 kg/m2 88065.08 g HORTENCIA STEVENSON [facility] 01/04/2024 13:01:54 Date Recorded Body height Body mass index (BMI) Body weight Provider Name and Address Organization Details Last Updated DateTime 02/10/2024 157.48 cm 26.9 kg/m2 88337.08 g APRIL MCKENZIE [facility] 02/10/2024 10:01:10 Social History Question Answer Notes LastModified by Organizat ion Details LastModified Time Tobacco Smoking Status Never Smoker EDEL da silva [place] - [place] [facility] 10/29/2023 09:19:52 What Is Your [...] History Nothing Reported. Medical History Condition Response Allergies/Hayfever N Coronary Artery Disease N Anxiety/Depression Y Breathing or lung disorders N Emphysema N Nerve Disorders N Thyroid Problems N COPD N Pacemaker N Anemia N Kidney/Bladder Problems N Vascular Disease N Heart Trouble N Heart Attack (CT) N Gastrointestinal Disease N Cholesterol N Diabetes N Autoimmune disease N Bleeding Disorder N Orthotics N Arthritis Y Seizures/Epilepsy N Blood Clot N AIDS/HIV N Congestive Heart Failure (CHF) N Acid Reflux (GERD) N Cancer N Stroke N Asthma N Circulation Problems N Peripheral Vascular Disease N Sleep Apnea N Hepatitis N Heart Disease N Rheumatoid Arthritis N Arrhythmia N Pulmonary Embolism N Headaches N Fibromyalgia N Hypertension Y Osteoporosis N Gynecological HistoryNo gynecological history recorded. Obstetrics History GPAL:G 0 P 0 0 0 0 Past Encounters Encounter ID Performer Location Encounter Start Date Encounter Closed Date Diagnosis/Indication Diagnosis SNOMED-CT Code Diagnosis ICD10 Code Diagnosis Note [id number] MD [facility] [address] [place] [address] 08/31/2023 08:15:33 09/17/2023 10:09:48 Osteoarthritis of right hip joint 3605512251 45553 M16.11 [id number] Elle Jean Baptiste CNP [facility] [address] [place], [place] [address] 09/14/2023 11:22:07 09/29/2023 12:13:36 Osteoarthritis of right hip joint 1160311196 24934 M16.11 [id number] Afshin Coy PA-C [facility] [address] [place] [address] 10/06/2023 08:35:18 10/06/2023 09:45:10 Aftercare 129988660 Z47.31 History of total replacement of right hip joint 6636331847 70794 Z96.354 [id number] SANJUANA Valderrama [address] [place] [address] 10/29/2023 09:02:07 11/22/2023 09:57:16 History of total replacement of right hip joint 5750219598 83582 Z96.641 Postoperative visit 1836 56075 Z48.89 Hip joint prosthesis present 645082946 Z96.158 [id number] SANJUANA Elizabeth [address] [place] [address] 12/21/2023 14:26:29 01/07/2024 16:02:39 Pain of right shoulder joint 0227146819 9278697 M25.511 Neck pain 71189564 M54.2 Localized, primary osteoarthritis of the shoulder region 393315427 M19.857 [id number] Beth Richmond PA-C [facility] [address] [place], [place] [address] 01/04/2024 12:45:47 01/28/2024 10:10:48 Pain of left hip joint 5078738578 33934 M25.552 Inflammati on of sacroiliac joint 94481514 M46.1 [id number] MD [facility] [address] [place], [place] [address] 02/10/2024 09:12:24 03/06/2024 08:18:07 History of total replacement of right hip joint 3715170987 48501 Z96.641 Health Concerns Section Related Observation LastModified by Organization Detai ls LastModified Time None Recorded Concern Status LastModified by Organization Details LastModified Time None Recorded Advance Directives Directive None Recorded Payers Encounter Date Sequence Insurance Name Policy Number Policy Funes Covered Member ID Funes Member ID Guarantor Name 10/06/2023 1 [facility] (MEDICARE REPLACEMENT/A DVANTAGE - PPO) [id number] Destiny Oshea [id number] Destiny Oshea 10/29/2023 1 [facility] (MEDICARE REPLACEMENT/A DVANTAGE - PPO) [id number] Destiny Oshea [id number] Destiny Oshea 12/21/2023 1 [facility] (MEDICARE REPLACEMENT/A DVANTAGE - PPO) [id number] Destiny Oshea [id number] Destiny Oshea 01/04/2024 1 [facility] (MEDICARE REPLACEMENT/A DVANTAGE - PPO) [id number] Destiny Oshea [id number] Destiny Oshea 02/10/2024 1 [facility] (MEDICARE REPLACEMENT/A DVANTAGE - PPO) [id number] Destiny Oshea [id number] Destiny Oshea Notes Date Note Type Note Provider Name [...] limits. X-rays ordered, obtained and reviewed at [facility] 2 views of the right total hip [...] total hip replacement. Afshin Coy PA-C [address], [place], [address], [facility] 10/06/2023 09:22:51 10/29/2023 text/html I [...] extension. X-rays ordered, obtained, and reviewed at [facility] today include an AP pelvis and lateral [...] are any complications. All questions were answered. [email or web address] speech recognition bushing press operator software was used to create portions of this document. An attempt at proofreading has been made to minimize errors. Please call for corrections. Cecily Jonas PA-C [address], [place], [address], [facility] 10/29/2023 10:08:36 12/21/2023 text/html [...] ordered, obtained and independently reviewed today at [facility]. Four views of the right shoulder demonstrate [...] measures no longer provide quality of life. [email or web address] speech recognition bushing press operator software was used to create portions of this document. An attempt at proofreading has been made to minimize errors. Please call for corrections. Darrin Perkins PA-C [address], [place], [address], [place] [facility] [place] [facility] 12/21/2023 15:10:35 01/04/2024 text/html I [...] September. Last year she was seen at [facility] and had an MRI of her lumbar spine which was independently reviewed in the [facility] system at [facility] at this time which showed only mild [...] visit note. This note was generated with [facility] speech recognition bushing press operator dictation software. Please excuse any errors that may have been overlooked during review of this note. Sometimes, these errors may affect the content or meaning of a given sentence. Please call for corrections. Beth Richmond PA-C [address] [facility] [address], [place], [address], [facility] - [place] [facility] 01/04/2024 13:58:28 OBGyn Episode No OBEpisode recorded.
--- OUTSIDE RECORDS SUMMARY | 2024-08-25 11:30 | XMS_ITS ---
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 Generated for Printi ng/Faxing/eTransmitting on:?08/25/2024 11:29 AM EST
== END 2024-08-25 10:16 | disposition home or self-care (01) ==
LOC: HO.LNP 10:15
PROVIDERS: Visit Provider Internal Medicine
DX: I10 Essential (primary) hypertension (principal)
CPT/HCPCS: 81001

== ENCOUNTER 2024-11-27 07:22 | Outpatient (REF) | payer MEDICARE, SELFPAY | END 2024-11-27 07:23 | disposition home or self-care (01) | LOC: HO.MAMMO 07:22 | PROVIDERS: PCP Internal Medicine; Visit Provider Internal Medicine | DX: Z12.31 Encounter for screening mammogram for malignant neoplasm of breast (principal) | CPT/HCPCS: 77063; 77067 ==

== ENCOUNTER → 2024-11-27 07:30 | Outpatient (BNV) | payer MEDICARE, SELFPAY | PROVIDERS: PCP Internal Medicine; Visit Provider Internal Medicine | DX: Z12.31 Encounter for screening mammogram for malignant neoplasm of breast (principal) | CPT/HCPCS: 77063; 77067 ==

== ENCOUNTER 2025-01-02 10:56 | Outpatient (REF) | payer MEDICARE, SELFPAY ==
--- OUTSIDE RECORDS SUMMARY | 2024-08-25 04:30 | XMS_ITS ---
Author Organization Aneesh Montesinos MD Address [address] [place], [place] [phone] Care Team Providers Care Gas Welding Machine Operator Name Role Phone Aneesh Montesinos Primary Care Provider [phone] Allergies No Known Allergies Results Component Value Reference Range Notes Occult Blood, Stool, Guaiac Reviewed date:08/25/2024 09:48:39 AM Interpretation:Negative Performing Lab: Notes/Report: Negative Occult Blood, Stool, Guaiac Neg UA ClnCatch+Micro w/rflx Cul t Reviewed date:08/25/2024 12:16:31 PM Interpretation: Performing Lab:[facility], [address] [place] [phone] Notes/Report: Urine, Clean Catch Color Urine Yellow Appearance Urine Clear PH 5.5 5.0-9.0 Glucose Urine UA Negative Negative mg/dL Urine Blood Negative Negative Specific Herrick - Urine 1.025 1.005-1.025 Urine Protein Negative Neg-Trace mg/dL Urine Ketones Negative Negative mg/dL Nitrite Urine Negative Negative Leukocyte Esterase Urine Negative Negative RBC Urine 0-2 0-2 /HPF WBC Urine 0-5 0-5 /HPF Squamous Epithelial Cell Urine 0-2 0-2 /HPF Bacteria Urine None Seen None Seen Hyaline Casts Urine 3-5 0-2 /LPF Reason For Referral Reason diarrhea Diagnosis 1 Diarrhea (R19.7) Referral Organization Aneesh Montesinos MD Referring Provider First Name Aneesh Referring Provider Last Name Jaguar Referring Provider Speciality Internal M edicine Referred Provider Daniele Dowling Referred Provider Specialty Gastroentero logy General Notes Rosario Fung 0 08/25/2024 01:55:26 PM >info faxed REFERRAL INFO MAILED TO PATIENT Referral Priority Routine Referral Appointment Date 12/21/2024 REASON FOR VISIT ANNUAL EXAM Medications Medication SIG (Take, Route, Frequency, Duration) Notes Start Date End Date Status amLODIPine Besylate 10 MG TAKE 1 TABLET BY MOUTH EVERY DAY Orally Active Tylenol 8 Hour Arthritis Bhupinder n 650 MG 2 tablets as needed Orally every 8 hrs Unknown Potassium Chloride Frida ER 2 0 MEQ TAKE 1 TABLET BY MOUTH TWICE DAILY WITH FOOD for 90 Active PARoxetine HCl 20 MG take 1tablet by ngoc th every day in the morning Orally Once a day Active CeleBREX 200 MG 1 capsule with food Orally Once a day for 30 day(s) 12/14/2022 Unknown Valsartan 160 MG TAKE 1 TABLET BY MOUTH DAILY Active Cyclobenzaprine HCl 10 MG 1 tablet at be dtime as needed Orally Once a day for 30 day(s) Unknown hydroCHLOROthiazide 25 MG TAKE 1 TABLET BY MOUTH EVERY DAY IN THE MORNING Active Social History Tobacco Use: Social History Observation [...] Never (0 point) Points 4 Interpretation Positive Vital Signs Blood pressure systolic 124 mm Hg 08/26/19 25 Blood pressure diastolic 80 mm Hg 025 Height 62.5 in 08/25/2024 Weight 154 lbs 08/25/2024 BMI 27.72 kg/m2 08/25/2024 weight is up 2 pounds since 02-24-24 Encounters Encounter Location Date Provider Diagnosis Aneesh Montesinos MD [address] [place] [address] [address] [place], [place] [phone] 08/25/2024 Aneesh Montesinos Essential hypertension I10 ; Annual physical exam Z00.00 ; Diarrhea R19.7 ; Dysthymia F34.1 ; Colon cancer screening Z12.11 and Depression screening Z13.31 Assessments Encounter Date Diagnosis (ICD Code) Assessment Notes Treatment Notes Treatment Clinical Notes Section Notes 08/25/2024 Essential hypertension (ICD-10 - I10) stbale, will continue current regiment 08/25/2024 Annual physical exam (ICD-10 - Z00.00) labs reviewed and discussed with patient 08/25/2024 Diarrhea (ICD-10 - R19.7) referral to dr dowling 08/25/2024 Dysthymia (ICD-10 - F34.1) stable, will continue current regiment 08/25/2024 Colon cancer screening (ICD-10 - Z12.11) guiac negative 08/25/2024 Depression screening (ICD-10 - Z13.31) negative screen Plan Of Treatment Medication Medication Name Sig Start Date Stop Date Notes amLODIPine Besylate 10 MG TAKE 1 TABLET BY MOUTH EVERY DAY Orally PARoxetine HCl 20 MG take 1tablet by ngoc th every day in the morning Orally Once a day Valsartan 160 MG TAKE 1 TABLET BY MOUTH DAILY hydroCHLOROthiazide 25 MG TAKE 1 TABLET BY MOUTH EVERY DAY IN THE MORNING Treatment Notes Assessment Notes Essential hypertension stbale, will cont inue current regiment Annual physical exam labs reviewed and d iscussed with patient Diarrhea referral to dr dowling Dystjoi stable, will continu e current regiment Colon cancer screening guiac negative Depression screening negative screen Referrals Referral Date Details 08/25/2024 08/25/2024, diarrhea , Daniele Dowling Next Appt Details Provider Name:Aneesh fang, 08/23/2025 07:15:00 AM, [address] [place] [address], [address] [place] [address], [phone], Provider Name:Aneesh fang, 08/30/2025 08:30:00 AM, [address] [place] [address], Suite [facility], [place], [place], [phone], Progress Notes * Destiny OSHEA LDOB:[birth year] (74 yo F)Acc No.[id number]:08/25/2024 Progress Notes Patient: Destiny CONRAD Provider: iVn Montesinos MD :1950 A ge:74 Y S ex:Female Date:08/25/2024 Address:[address], [id number] Subjective: * Chief Complaints: * A NNUAL EXAM * HPI: D epression Screening: PHQ-9 L ittle interest or pleasure in doing things N ot at all, F eeling down, depressed, or hopeless N ot at all, T rouble falling or staying asleep, or sleeping too much N ot at all, F eeling tired or having little energy N ot at all, P oor appetite or overeating N ot at all, F eeling bad about yourself or that you are a failure, or have let yourself or your family down N ot at all, T rouble concentrating on things, such as reading the newspaper or watching television N ot at all, M oving or speaking so slowly that other people could have noticed; or the opposite, being so fidgety or restless that you have been moving around a lot more than usual N ot at all, T houghts that you would be better off or of hurting yourself in some way N ot at all, T otal Score 0 . I nterpretation and Intervention D epression Screening Findings N egative, F ollow-Up for Depression : review of PHQ-9 found negative result, no follow-up needed. C ommunication Needs: Communication Needs D oes the patient have a hearing impairment N o, D oes the patient have a vision impairment? Y es, I f yes, what is the vision impairment? G lasses, D oes the patient have a cognition impairment? N o. F all Risk: History H ave you had any falls with injury in the past year? N o, H ave you had two or more falls in the past year? N o. S NAZARIO Questions: SDOH Questions I n the past year have you been worried about losing housing? N o, I n the past year have you or any family members you live with been unable to get any of the following when it was really needed? Check all that apply: N one. S ymptom(s): patient is a 74 yo female here for annual visit with review of recent labs and follow up of chronic issues.every day before supper gets cramps and diarrhea just one time. * ROS: G eneral/Constitutional: Change in appetite d enies. C hills d enies. F ever d enies. O phthalmologic: Blurred vision d enies. D ischarge d enies. P ain d enies. E NT: Decreased hearing d enies. S ore throat d enies.?Swollen glands d enies. E ndocrine: Cold intolerance d enies. E xcessive thirst d enies. H eat intolerance d enies. W eight loss d enies. R espiratory: Cough d enies. S hortness of breath at rest d enies. S hortness of breath with exertion d enies. W heezing d enies. C ardiovascular: Chest pain at rest d enies. C hest pain with exertion?denies. I rregular heartbeat d enies. S hortness of breath d enies. ? G astrointestinal: Abdominal pain d enies. C hange in bowel habits d enies. D iarrhea d enies. N ausea d enies. R ectal bleeding d enies. V omiting d enies . G enitourinary: Blood in urine d enies. D ifficulty urinating d enies. F requent urination d enies. U rinary incontinence D enies. M usculoskeletal: Painful joints d enies. W eakness d enies. ? S kin: Dry skin d enies. I tching d enies. D enies?Mole(s), changes in moles, new moles or any lesions of concern. D enies P hotosensitivity. R boris d enies. N eurologic: Dizziness d enies. F ainting d enies. H eadache?denies. * Medical History: * Surgical History: * Hospitalization/Major Diagno stic Procedure: * Family History: F ather: 67 yrs. M other: 81 yrs. 2 son(s) , 1 daughter(s) . . Father- RA Mother- cervical cancer, No pertinent family medical history, Denies mental health/substance abuse family history, Denies mental health/substance abuse family history. * Social History: T obacco Use: T obacco Use/Smoking P atient is a n onsmoker, A dditional Findings: Tobacco Non-User C urrent non-smoker, currently using no form of tobacco. D rugs/Alcohol: A lcohol Screen D id you have a drink containing alcohol in the past year? Y es, H ow often did you have a drink containing alcohol in the past year? 4 or more times a week (4 points), H ow many drinks did you have on a typical day when you were drinking in the past year? 1 or 2 drinks (0 point), H ow often did you have 6 or more drinks on one occasion in the past year? N ever (0 point), P oints 4 , I nterpretation P ositive. M iscellaneous: C affeine: yes, frequency:, 1-2 cups per day. Children: yes. Community involvements: yes. Exercise: yes, walks her dog QD. Home smoke detector use: yes. Housing: renting. Living with: significant other. Occupation: weeks/months/years, works part-time. Pets: cats: dogs:1 dog. Travel outside of the [place]: no. * Medications: T akinghydroCHLOROthiazide 25 MG Tablet TAKE 1 TABLET BY MOUTH EVERY DAY IN THE MORNING PARoxetine HCl 20 MG Tablet take 1tablet by mouth every day in the morning Orally Once a day amLODIPine Besylate 10 MG Tablet TAKE 1 TABLET BY MOUTH EVERY DAY Orally Valsartan 160 MG Tablet TAKE 1 TABLET BY MOUTH DAILY Potassium Chloride Frida ER 20 MEQ Tablet Extended Release TAKE 1 TABLET BY MOUTH TWICE DAILY WITH FOOD Taking hydroCHLOROthiazide 25 MG Tablet TAKE 1 TABLET BY MOUTH EVERY DAY IN THE MORNING Taking PARoxetine HCl 20 MG Tablet take 1tablet by mouth every day in the morning Orally Once a day Taking amLODIPine Besylate 10 MG Tablet TAKE 1 TABLET BY MOUTH EVERY DAY Orally Taking Valsartan 160 MG Tablet TAKE 1 TABLET BY MOUTH DAILY Taking Potassium Chloride Frida ER 20 MEQ Tablet Extended Release TAKE 1 TABLET BY MOUTH TWICE DAILY WITH FOOD UnknownCeleBREX 200 MG Capsule 1 capsule with food Orally Once a day Tylenol 8 Hour Arthritis Pain 650 MG Tablet Extended Release 2 tablets as needed Orally every 8 hrs Cyclobenzaprine HCl 10 MG Tablet 1 tablet at bedtime as needed Orally Once a day Medication List reviewed and reconciled with the patientUnknown CeleBREX 200 MG Capsule 1 capsule with food Orally Once a day Unknown Tylenol 8 Hour Arthritis Pain 650 MG Tablet Extended Release 2 tablets as needed Orally every 8 hrs Unknown Cyclobenzaprine HCl 10 MG Tablet 1 tablet at bedtime as needed Orally Once a day Medication List reviewed and reconciled with the patient * Allergies: N .K.D.A.yes[Allergies Verified] Objective: * Vitals: H t: 62.5, Wt: 154, BMI:27.72, BP:124/80, Wt-k.85. weight is up 2 pounds since 02-24-24. * P ast Orders: L ab:Lipid Panel (Order Date - 08/18/2024) (Collection Date & Time - 08/18/2024 08:00 AM) Value Reference Range Triglycerides 93 <150 - mg/dL Cholesterol 241 H <200 - mg/dL LDL Cholesterol Calculated 126 H <100 - mg/dL HDL Cholesterol 97 >40 - mg/dL L ab:Complete Blood Count Auto Diff (Order Date - 08/18/2024) (Collection Date & Time - 08/18/2024 08:00 AM) Value Reference Range White Blood Count 5.5 4.8-10.8 - X10*3/uL Red Blood Count 4.30 4.20-5.50 - X10*6/uL Hemoglobin 13.6 12.0-16.0 - g/dl Hematocrit 39.7 37.0-47.0 - % Mean Corpuscular Volume 92.3 80.0-98.0 - fL Mean Corpuscular Hemoglobin 31.6 27.0-33.0 - pg Mean Corpuscular HGB Conc 34.3 31.0-35.0 - g/ dl Red Cell Distribution Width 12.3 11.0-16.0 - % Platelet Count 224 160-400 - X10*3/uL Mean Platelet Volume 10.3 9.4-12.3 - fL Neutrophils Percent Auto 56.9 45-73 - % Imm Gran Pct Auto 0.2 0.0-0.4 - % Lymphocytes Percent Auto 27.9 20-40 - % Monocytes Percent Auto 11.9 H 2-11 - % Eosinophils Percent Auto 2.0 0-4 - % Basophils Percent Auto 1.1 0-2 - % NRBC Pct Auto 0.0 0.0-0.2 - /100WBC Neutrophils Absolute Auto 3.1 2.0-8.3 - x10* 3/uL Imm Gran Abs Auto 0.01 0.00-0.03 - X10*3/uL Lymphocytes Absolute Auto 1.5 1.2-4.9 - X10* 3/uL Monocytes Absolute Auto 0.7 0.1-1.2 - X10*3/ uL Eosinophils Absolute Auto 0.1 0.0-0.4 - X10* 3/uL Basophils Absolute Auto 0.1 0.0-0.2 - X10*3/ uL NRBC Abs Auto 0.000 0.0-0.012 - X10*3/uL L ab:Comprehensive [place]. Panel Fast (Order Date - 08/18/2024) (Collection Date & Time - 08/18/2024 08:00 AM) Value Reference Range Sodium 140 135-145 - mmol/L Bilirubin Total 0.7 0.0-1.0 - mg/dL Aspartate Amino Transferase 29 5-31 - U/L Alanine Aminotransferase 19 0-31 - U/L Total Protein 7.4 6.5-8.0 - g/dL Albumin Level 4.1 3.5-5.0 - g/dL Alkaline Phosphatase 78 39-117 - U/L Potassium 3.5 3.3-5.1 - mmol/L Chloride 107 96-108 - mmol/L Carbon Dioxide 27 22-29 - mmol/L Anion Gap 10 L 12-20 - Blood Urea Nitrogen 21 H 9-16 - mg/dL Creatinine 0.64 0.5-1.4 - mg/dL Estimated Glomerular Filt Rate > 60 - Glucose Fasting 93 60-99 - mg/dL Calcium 9.0 8.4-10.2 - mg/dL * Examination: G eneral Examination: GENERAL APPEARANCE: w ell developed, well nourished, in no acute distress. HEAD: n ormocephalic, atraumatic. EYES: p upils equal, round, reactive to light and accommodation, sclera non-icteric. EARS: n ormal. ORAL CAVITY: m ucosa moist. THROAT: c lear. NECK/THYROID: n kelly supple, full range of motion, no cervical lymphadenopathy, no bruits. SKIN: w arm and dry, no suspicious lesions. HEART: r egular rate and rhythm, S1, S2 normal, no murmurs.? LUNGS: c lear to auscultation bilaterally. BREASTS: N o mass, no lump. ABDOMEN: s oft, nontender, nondistended, bowel sounds present, normal, no organomegaly , no masses palpable. RECTAL EXAM: s tool guaiac negative, no masses palpable.? FEMALE GENITOURINARY: d one by limb driver. EXTREMITIES: n o clubbing, cyanosis, or edema. NEUROLOGIC: n onfocal, motor strength normal upper and lower extremities, sensory exam intact. Assessment: * Assessment: 1. A nnual physical exam - Z00.00 (Primary) 2 . E ssential hypertension - I10 3 . D iarrhea - R19.7 4 . D ysthymia - F34.1 ?5. C olon cancer screening - Z12.11 6 . D epression screening - Z13.31? Plan: * Treatment: 2. E ssential hypertension Continue hydroCHLOROthiazide Tablet, 25 MG, TAKE 1 TABLET BY MOUTH EVERY DAY IN THE MORNING; C ontinue amLODIPine Besylate Tablet, 10 MG, TAKE 1 TABLET BY MOUTH EVERY DAY, Orally; C ontinue Valsartan Tablet, 160 MG, TAKE 1 TABLET BY MOUTH DAILY. L AB: UA ClnCatch+Micro w/rflx Cult (Collection Date & Time - 08/25/2024 08:30 AM) Notes: stbale, will continue current regiment 3. D iarrhea Notes: referral to dr dowling Referral To:Daniele Dowling [facility] Reason:diarrhea 4. D ysthymia Continue PARoxetine HCl Tablet, 20 MG, take 1tablet by mouth every day in the morning, Orally, Once a day. Notes: stable, will continue current regiment 5. C olon cancer screening L AB: Occult Blood, Stool, Guaiac (Collection Date & Time - 08/25/2024) N egative Value Reference Range O ccult Blood, Stool, Guaiac Neg Notes: guiac negative??6.?Depression screening? Notes: negative screen?? * Procedure Codes: 8 2270 TEST FOR BLOOD, FECES * * Sign off status: Completed true * Provider: Vin Montesinos MD Date: 0 08/25/2024 Generated for Ely nix/Rachel/eTransmitting on: 0 01/02/2025 12:18 PM EDT History and Physical Notes * HPI (History of Present Illness) Category Sub-Category Detail Notes Category Not es Symptom(s) patient is a 74 yo female here for annual visit with review of recent labs and follow up of chronic issues.every day before supper gets cramps and diarrhea just one time Depression Screening PHQ-9 Little inte rest or pleasure in doing things: Not at all Feeling down, depressed, or hopeless: No t at all Trouble falling or staying asleep, or sl eeping too much: Not at all Feeling tired or having little energy: N ot at all Poor appetite or overeating: Not at all Feeling bad about yourself o r that you are a failure, or have let yourself or your family down: Not at all Trouble concentrating on thi ngs, such as reading the newspaper or watching television: Not at all Moving or speaking so slowly that other people could have noticed; or the opposite, being so fidgety or restless that you have been moving around a lot more than usual: Not at all Thoughts that you would be b anahi off or of hurting yourself in some way: Not at all Total Score: 0 Interpretation and Intervention Depression Emelyn knox Findings: Negative Follow-Up for Depression: : review of PH Q-9 found negative result, no follow-up needed SDOH Questions SDOH Questions In the past year have you been worried about losing housing?: No In the past year have you or any family members you live with been unable to get any of the following when it was really needed? Check all that apply:: None Fall Risk History Have you had any falls with injury i n the past year?: No Have you had two or more falls in the year?: No Communication Needs Communication Needs Does the patient have a hearing impairment: No Does the patient have a vision impairmen t?: Yes If yes, what is the vision impairment?: Glasses Does the patient have a cognition impair ment?: No Examination Category Sub-Category Detail Notes Category Not es General Examination GENERAL APPEARANCE: well dev eloped, well nourished, in no acute distress HEAD: normocephalic, atrau matic EYES: pupils equal, round, reactive to light and accommodation, sclera non-icteric EARS: normal THROAT: clear NECK/THYROID: neck supple, full ra nge of motion, no cervical lymphadenopathy, no bruits HEART: regular rate and rhy thm, S1, S2 normal, no murmurs LUNGS: clear to auscultatio n bilaterally ABDOMEN: soft, nontender, non distended, bowel sounds present, normal, no organomegaly , no masses palpable NEUROLOGIC: nonfocal, motor stre ngth normal upper and lower extremities, sensory exam intact SKIN: warm and dry, no koko picious lesions EXTREMITIES: no clubbing, cyanosi s, or edema BREASTS: No mass, no lump RECTAL EXAM: stool guaiac negativ e, no masses palpable FEMALE GENITOURINARY: done by limb driver ORAL CAVITY: mucosa moist Consultation Request Notes Referral Date Referring Provider Referred Provider Not es 08/25/2024 Aneesh Montesinos Robert diarrhea
--- OUTSIDE RECORDS SUMMARY | 2024-09-05 04:30 | XMS_ITS ---
Author Organization [facility] Address [address] [place] [address] Care Team Providers Care Pamphlet Distributor Name Role Phone Aneesh Montesinos MD Primary Care Provider Lexy Medina Unavailable [phone] Medications Medication SIG (Take, Route, Fr equency, Duration) Notes Start Date End Date Status hydroCHLOROthiazide Active PARoxetine HCl Activ e amLODIPine Besylate Active Tylenol Active Potassium Active Valsartan Active Social History Tobacco Use: Social History [...] Negative Encounters Encounter Location Date Provider Diagnosis [facility] [address] [place] [address] 09/05/2024 Lexy Wei Plan Of Treatment No Information Progress Notes * Rashaad OSHEAOB:1950 (74 yo F)Acc No.[id number]:09/05/2024 Progress Notes Patient: Destiny CONRAD Provider: Max Wei DPM :1950 A ge:74 Y S ex:Female Date:09/05/2024 Address:[address] [place] [address] Pcp:Aneesh Montesinos MD Subjective: * Chief Complaints: * * ROS: H EENTM: Glasses/contacts a dmits. G astrointestinal: Hemorrhoids a dmits. M usculoskeletal: Back Pain a dmits. * Medical History: A rthritis, Covid-19, Depression, High Blood Pressure, Measles, Chicken pox, Joint implants/screws. * Surgical History: h ip replacement 09/22/23. * Family History: M other: , diagnosed with Other malignant neoplasm of unspecified site, Unspecified essential hypertension. F ather: , diagnosed with Unspecified essential hypertension, Unspecified cerebral artery occlusion with cerebral infarction, Family history of arthritis. * Social History: T obacco Use: T obacco use other than smoking A re you an other tobacco user? N o Tobacco Control (Standard) T obacco use: F ormer smoker A dditional Findings: Tobacco non-user C urrent nonsmoker D rugs/Alcohol: D rugs H ave you used drugs other than those for medical reasons in the past 12 months? Y es M iscellaneous: C affeine: yes, frequency:. Children: yes, 3. Exercise: no. Marital status: Single. D rug/Alcohol: A MAYO-C (Standard) D id you have a drink containing alcohol in the past year? Y es H ow often did you have six or more drinks on one occasion in the past year? N ever (0 point) H ow many drinks did you have on a typical day when you were drinking in the past year? 1 or 2 drinks (0 point) H ow often did you have a drink containing alcohol in the past year? N ever (0 point) P oints 0 I nterpretation N egative * Medications: T aking Valsartan , Taking hydroCHLOROthiazide , Taking amLODIPine Besylate , Taking PARoxetine HCl , Taking Potassium , Taking Tylenol Objective: * Vitals: Assessment: Plan: * Treatment: * Images: * The named appointment provid er may or may not be the originator of this progress note, and it is not deemed complete until electronically signed by the appointment provider. Sign off status: Pending * Provider: Max Wei DPM Date: 0 09/05/2024 Generated for Ely nix/Rachel/Cherry on: 01/02/2025 12:19 PM EDT
[2025-01-02 11:09] LABS: MANUAL DIFF FLAG NO
[2025-01-02 11:38] LABS: Hematocrit 40.4 % (37.0-47.0); Hemoglobin 13.8 g/dl (12.0-16.0); Imm Gran Abs Auto 0.01 X10*3/uL (0.00-0.03); Imm Gran Pct Auto 0.2 % (0.0-0.4); Lymphocytes Absolute Auto 1.6 X10*3/uL (1.2-4.9); Mean Corpuscular HGB Conc 34.2 g/dl (31.0-35.0); Mean Corpuscular Hemoglobin 31.0 pg (27.0-33.0); Mean Corpuscular Volume 90.8 fL (80.0-98.0); NRBC Abs Auto 0.000 X10*3/uL (0.0-0.012); NRBC Pct Auto 0.0 /100WBC (0.0-0.2); Platelet Count 218 X10*3/uL (160-400); Red Blood Count 4.45 X10*6/uL (4.20-5.50); White Blood Count 6.0 X10*3/uL (4.8-10.8)
--- OUTSIDE RECORDS SUMMARY | 2025-01-02 12:19 | XMS_ITS | Patient Health Record ---
Author Organization [facility] Address [address] [place] [address] Care Team Providers Care Perfect Binder Setter Name Role Phone Jaguar VALENZUELA, Aneesh Primary Care Provider Daniele Ward Unavailable [phone] Allergies No Known Allergies Results Component Value Reference Range Notes Complete Blood Count Auto Di ff (Not yet reviewed by provider) Interpretation: Performing Lab:[facility], [address] [place] [id number] Notes/Report: White Blood Count 6.0 4.8-10.8 X10*3/uL Red Blood Count 4.45 4.20-5.50 X10*6/uL Hemoglobin 13.8 12.0-16.0 g/dl Hematocrit 40.4 37.0-47.0 % Mean Corpuscular Volume 90.8 80.0-98.0 fL Mean Corpuscular Hemoglobin 31.0 27.0-33.0 pg Mean Corpuscular HGB Conc 34.2 31.0-35.0 g/dl Red Cell Distribution Width 11.9 11.0-16.0 % Platelet Count 218 160-400 X10*3/uL Mean Platelet Volume 10.1 9.4-12.3 fL Neutrophils Percent Auto 59.7 45-73 % Imm Gran Pct Auto 0.2 0.0-0.4 % Lymphocytes Percent Auto 27.2 20-40 % Monocytes Percent Auto 10.4 2-11 % Eosinophils Percent Auto 1.5 0-4 % Basophils Percent Auto 1.0 0-2 % NRBC Pct Auto 0.0 0.0-0.2 /100WBC Neutrophils Absolute Auto 3.6 2.0-8.3 x10*3/u L Imm Gran Abs Auto 0.01 0.00-0.03 X10*3/uL Lymphocytes Absolute Auto 1.6 1.2-4.9 X10*3/u L Monocytes Absolute Auto 0.6 0.1-1.2 X10*3/uL Eosinophils Absolute Auto 0.1 0.0-0.4 X10*3/u L Basophils Absolute Auto 0.1 0.0-0.2 X10*3/uL NRBC Abs Auto 0.000 0.0-0.012 X10*3/uL Erythrocyte Sedimentation Ra te (Not yet reviewed by provider) Interpretation: Performing Lab:[facility], [address] [place] [phone] Notes/Report: Erythrocyte Sedimentation Rate 5 0-20 MM/HR Patients with polycythemia and many hemoglobin abnormalities may have depressed sed rates whereas patients with anemia may have elevated sed rates. Reason For Referral No Information Medications Medication SIG (Take, Route, Frequency, Duration) Notes Start Date End Date Status Potassium Chloride Frida ER 20 MEQ TAKE 1 TABLET BY MOUTH TWICE DAILY WITH FOOD Oral for 90 Active PARoxetine HCl 20 MG TAKE 1 TABLET BY MOUTH EVERY DAY IN THE MORNING Oral for 60 F341,Unavaila ble Active Valsartan 160 MG Oral for 90 Days Active Valsartan 160 MG TAKE ONE TABLET BY MOUTH EVERY DAY Oral for 90 Days Active Biotin Active Turmeric Active hydroCHLOROthiazide 25 MG TAKE 1 TABLET BY MOUTH EVERY DAY IN THE MORNING Oral for 90 Active amLODIPine Besylate 10 MG TAKE ONE TABLE T BY MOUTH EVERY DAY Oral for 90 Days Active Immunizations Vaccine Route Administration Date Status [...] or 3 glassess of wine, non smoker 2 or 3 glassess of wine, non smoker Problems Problem Type SNOMED Code ICD Code Onset Dates Problem Status W/U Status Risk Notes Problem 047821606 Colon cancer screening (Z12.11) Active confirmed Problem Diarrhea (33667753) Diarrhea (R19.7) Active confirmed Problem Change in bowel habit (96369186) Change in bowel habits (R19.4) Active confirmed Problem Diverticular disease of colon (329371843) Diverticulosis of large intestine without perforation or abscess without bleeding (K57.30) Active confirmed Problem [id number] Preprocedural examination (Z01.818) Active confirmed Vital Signs Blood pressure diastolic 77 mm Hg 12/21/2024 Height 5 ft 2.5 in in 12/21/2024 Blood pressure systolic 111 mm Hg 12/21/2024 Weight 160 lbs 12/21/2024 BMI 28.79 kg/m2 12/21/2024 Encounters Encounter Location Date Provider Diagnosis [facility] [address] [place] [address] 12/21/2024 Daniele Palacio Change in bowel habits R19.4 and Diarrhea R19.7 Assessments Encounter Date Diagnosis (ICD Code) Assessment Notes Treatment Notes Treatment Clinical Notes Section Notes 12/21/2024 Diarrhea (ICD-10 - R19.7) Overall, Destiny appears quite well. We did have a detailed discussion today regarding her symptomatology which I advised her does not seem particularly worrisome at this time. She is not having any worrisome symptoms in association with this such as bleeding, weight loss, or abdominal pain. Her 3 negative screening colonoscopies, including 1 less than 2 years ago, reassuring as well. Her symptoms may reflect some mild irritable bowel syndrome. Given the unpredictable symptomatology and no ongoing chronic symptoms I advised her that it would be difficult to give her any particular medication such as antispasmodic or antidiarrheal agent to prevent it. I did advise her to try to minimize caffeine and dairy for a couple of weeks to see if that makes a difference for her. I shall check some laboratories including celiac disease labs and thyroid studies, although I do suspect those will return as normal. I will plan to see her again in 6 months just for a follow-up to be sure things are stable. I advised her that if things were to worsen or she develops any other symptoms such as pain or bleeding she needs to call me and we can then reassess things to see whether or not a repeat colonoscopy would be indicated. I advised her that at this point I do not think a repeat colonoscopy is required but again if anything changes we could always reconsider that. Destiny was very comfortable with this plan. Thank you again for allowing me to participate in Destiny's care. I shall continue to keep you advised of her progress. 12/21/2024 Change in bowel habits (ICD-10 - R19.4) Minimize caffeine and dairy to see if that helps Overall, Destiny appears quite well. We did have a detailed discussion today regarding her symptomatology which I advised her does not seem particularly worrisome at this time. She is not having any worrisome symptoms in association with this such as bleeding, weight loss, or abdominal pain. Her 3 negative screening colonoscopies, including 1 less than 2 years ago, reassuring as well. Her symptoms may reflect some mild irritable bowel syndrome. Given the unpredictable symptomatology and no ongoing chronic symptoms I advised her that it would be difficult to give her any particular medication such as antispasmodic or antidiarrheal agent to prevent it. I did advise her to try to minimize caffeine and dairy for a couple of weeks to see if that makes a difference for her. I shall check some laboratories including celiac disease labs and thyroid studies, although I do suspect those will return as normal. I will plan to see her again in 6 months just for a follow-up to be sure things are stable. I advised her that if things were to worsen or she develops any other symptoms such as pain or bleeding she needs to call me and we can then reassess things to see whether or not a repeat colonoscopy would be indicated. I advised her that at this point I do not think a repeat colonoscopy is required but again if anything changes we could always reconsider that. Destiny was very comfortable with this plan. Thank you again for allowing me to participate in Destiny's care. I shall continue to keep you advised of her progress. Plan Of Treatment Pending Test Test Name Order Date CRP 12/21/2024 CBC w DIFF 12/21/2024 SED RATE (ESR) 12/21/2024 CELIAC PANEL #10 12/21/2024 Complete Blood Count Auto Diff 07/15/202 5 Erythrocyte Sedimentation Rate 5 TSH reflex Free T4 12/21/2024 Future Test Test Name Order Date COLONOSCOPY 03/17/2023 Next Appt Details Provider Name:Daniele Palacio , 06/26/2025 09:50:00 AM, [address], [address], [place], [address], Insurance Providers Payer Name Payer Address Payer Phone Subscriber Number Group Number Insured Name Patient Relationship to Insured Coverage Start Date Coverage End Date [employer] Medicare Adv (PPO) [address] [address] [place] [address] [id number] DESTINY MARRERO Self - patient is the insured Medical (General) History Medical History History ICD Code Anxiety/depression HTN Denies RI,DM,CVA,Lung disease,renal dise ase Negative colonoscopies at age 52 and age 62 in [place], [place] Back and right hip pain Negative screening colonoscopy with me i n May 2023 Surgical History Surgery Date(Month/Year) RIGHT HIP TOTAL REPLACEMENT BTL
--- OUTSIDE RECORDS SUMMARY | 2025-01-02 12:19 | XMS_ITS | Data Portability ---
Author Organization [facility], [facility] Address [address] [place] [address] Care Team Providers Care Sketch Liner Name Role Phone LYNDSEY FRANKEL Primary Care Provider [phone] Assessment Encounter Date Assessment Date Assessment LastModified [...] SI JOINT 2023 024 [email or web address] Not available 4 14:31:51 Procedures None recorded. Surgeries None recorded. Imaging XR, hip + pelvis, unilatera l, 2 or 3 view - 210 RTHR 2V P/O 2023 024 [email or web address] [facility], [address], [place], [address], 4 08:18:07 XR, hip + pelvis, unilatera l, 2 or 3 view - rm 4 2023 024 BEE [facility], [address], [address], [place], [address], 4 13:18:09 XR, cervical spine, 1 view - room 220 lateral cervical 2023 024 [email or web address] [facility], [address], [address], [place], [address], 4 16:02:39 XR, shoulder, 2 or more view - room 220 right shoulder/ lateral cervical 2023 024 [email or web address] [facility], [address], [address], [place], [address], 4 16:02:39 XR, hip, unilatera l, 2 or 3 view - 4 wk post op RTHR AL room 219 2023 024 [email or web address] [facility], [address], [address], [place], [address], 4 12:19:38 XR, hip, unilatera l, 2 or 3 view - ROOM 201, 1st post op RTHR AL 2023 024 [email or web address] 7 [facility], [address], [address], [place], [address], 4 09:45:11 Medication Orders amoxicill in 500 mg capsule 2023 024 [email or web address] Not available 4 10:13:30 meloxicam 15 mg tablet 2023 024 BEE Not available 4 10:02:05 Patient TargetsNo targets recorded. Patient Instructions Encounter Date Encounter Id Patient Instructions Last Modified By Organization Details Last Modified Time 01/04/2024 [id number] sacroiliac pain: exercises [email or web address] Not available 01/04/2024 13:49:33 Reason for Referral Physical Therapist Referral for Inflammation of sacroiliac joint DX SI JOINT Referring Physician: Beth Richmond, Orthopedic Surgery, [id number] Encounter Date: 01/04/2024 Results Created Date Observation Date Name Description Value Unit Range Abnormal Flag Note LastModifiedBy Organization Detail LastModifiedTime 12/21/19 24 12/21/2023 XR, cervi jamaal spine , 1 view [email or web address] ?Encry pted=s hAaTro YD8dLq bEUv6g %2BXZw aYqtaq 0bqfl% 2Fg9IQ a4ajBk vP9nXo QUaueC m3YtLR FvZlgJ JJ8mAn HZtai3 4m3789 AC0Kpa H6GWKr eUC8mr 84%3D INTERFACE [facility] [address], [place], [address], 12/21/2023 14:52:16 12/21/19 24 12/21/2023 XR, cervi jamaal spine , 1 view [email or web address] ?Encry pted=s hAaTro YD8dLq bEUv6g %2BXZw aYqtaq 0bqfl% 2Fg9IQ a4ajBk vP9nXo QUaueC m3YtLR FvZlg JJ8mAn HZtai3 9d5057 AC0Kpa H6GWKr eUC8mr 84%3D INTERFACE [facility] [address], [place], [address], 12/21/2023 14:52:18 12/21/19 24 12/21/2023 XR, shoul albaro, 2 or more view [email or web address] ?Encry pted=s hAaTro YD8dLq bEUv6g %2BXZw aYqtaq 0bqfl% 2Fg9IQ a4ajBk vP9nXo QUaueC m3YtLR FvZlg JJ8[place] HZtai3 4g4481 AC0Kpa H6GWaX eUC8mr 84%3D INTERFACE [facility] [address], [place], [address], 12/21/2023 14:55:41 12/21/19 24 12/21/2023 XR, shoul albaro, 2 or more view [email or web address] ?Encry pted=s hAaTro YD8dLq bEUv6g %2BXZw aYqtaq 0bqfl% 2Fg9IQ a4ajBk vP9nXo QUaueC m3YtLR FvZlg JJ8mAn HZtai3 0x7044 AC0Kpa H6GWaX eUC8mr 84%3D INTERFACE [facility] [address], [place], [address], 12/21/2023 14:55:44 01/04/20 24 01/04/2024 XR, hip + pelvi s, unila teral , 2 or 3 view [email or web address]:/ [email or web address] ?Encry pted=s hAaTro YD8dLq bEUv6g %2BXZw aYqtaq 0bqfl% 2Fg9IQ a4ajBk vP9nXo QUaueC m3YtLR FvZlgJ JJ8mAn HZtai3 9y5244 AC0Kpb X%2BBU 6XeUC8 mr84%3 D INTERFACE [facility] [address], [place], [address], 01/04/2024 13:18:09 01/04/20 24 01/04/2024 XR, hip + pelvi s, unila teral , 2 or 3 view [email or web address]:/ [email or web address] ?Encry pted=s hAaTro YD8dLq bEUv6g %2BXZw aYqtaq 0bqfl% 2Fg9IQ a4ajBk vP9nXo QUaueC m3YtLR FvZlgJ JJ8mAn HZtai3 4u1722 AC0Kpb X%2BBU 6XeUC8 mr84%3 D INTERFACE [facility] [address], [place], [address], 01/04/2024 13:18:12 02/10/20 24 02/10/2024 XR, hip + pelvi s, unila teral , 2 or 3 view [email or web address]:/ [email or web address] ?Encry pted=s hAaTro YD8dLq bEUv6g %2BXZw aYqtaq 0bqfl% 2Fg9IQ a4ajBk vP9nXo QUaueC m3YtLR FvZlgJ JJ8mAn HZtai3 8t3337 AC0Kra HmFUaP eUC8mr 84%3D INTERFACE [facility] [address], [place], [address], 02/10/2024 10:09:40 02/10/20 24 02/10/2024 XR, hip + pelvi s, unila teral , 2 or 3 view [email or web address]:/ [email or web address] ?Encry pted=s hAAracelio YD8dLq bEUv6g %2BXZw aYqtaq 0bqfl% 2Fg9IQ a4ajBk vP9nXo QUaueC m3YtLR FvZlgJ JJ8mAn HZtai3 2i6445 AC0Kra HmFUaP eUC8mr 84%3D INTERFACE [facility] [address], [place], [address], 02/10/2024 10:09:42 Result Notes Documentation Provider Name and Address Organization Details Recorded Time Xr, Cervical Spine, 1 View : [email or web address] Encrypted=bcUjNttJY0dHebC Uv6g%7EKVfrKxsxb7jkce%2Fg 4FPy5mgQnoP6oVeRDesaWl6Hm YDPfYkjUGQ9rJwGYcuu87t407 3UM3AkdV5SXIklHG3rb11%3D Not Available [facility] 12/21/2023 14:5 2:17 Xr, Cervical Spine, 1 View : [email or web address] Encrypted=xjJqXdxHW4tWtgH Uv6g%5YHVmzCvevd5guxx%2Fg 4PYb6nzOapQ0dJrLHsiiAv5Ba XNMwEjwACR4iJjIWeyu46q403 6DF7DfwE1PTXkjQE3zy69%3D Not Available [facility] 12/21/2023 14:5 2:19 Xr, Shoulder, 2 Or More View : [email or web address] Encrypted=fzBhQnhME2lLctD Uv6g%4SRKnoLxryo1ylbp%2Fg 7AJe8tuKkaJ8dNmZXylfWi4Jf LWFcWkjEBQ5zSjMAhxv65o856 3CZ2WqsL6XAeLqBW5nl63%3D Not Available [facility] 12/21/2023 14:5 5:42 Xr, Shoulder, 2 Or More View : [email or web address] Encrypted=blNdGywRE2dVbqW Uv6g%2SSTtkCotrk8cbkb%2Fg 1RDe8chFeeH4sCsVYfxpPx3Gn CRKtXndBSA4qGcWAkvu78d550 4HR8IoqK1ULcSfHT8js59%3D Not Available [facility] 12/21/2023 14:5 5:44 Xr, Hip + Pelvis, Unilateral, 2 Or 3 View : [email or web address] Encrypted=wnHyQjdCV1kVzqL Uv6g%4EHKauKxtab0nvdw%2Fg 5UZy4kjEwnM2aDwXYnezGv3Dg DDZaUssYYC9aTmEZdoq00v634 2TK6AhnC%9XWN5CzNQ8sp87%3 D Not Available [facility] 01/04/2024 13:18:10 Xr, Hip + Pelvis, Unilateral, 2 Or 3 View : [email or web address] Encrypted=hkNdIzmZW5dZlqJ Uv6g%8IIBjxJqyfu5ywoq%2Fg 1NCn8tjLevR8bRsDAzobBl3Hm JWQtBxpWXG9eFlMGoyo34s099 5CK8TohY%4ELB0DrSL0fh55%3 D Not Available [facility] 01/04/2024 13:18:12 Xr, Hip + Pelvis, Unilateral, 2 Or 3 View : [email or web address] Encrypted=jcWrMczTL4mPccB Uv6g%0QJZbxDscao2hryj%2Fg 9LLx2knHvoH9hYoMDuafAb6Yh YSVuMoePUN0eOaNOjqj86a272 9CM9VgrXqWYnLbYO0ra02%3D Not Available [facility] 02/10/2024 10:0 9:40 Xr, Hip + Pelvis, Unilateral, 2 Or 3 View : [email or web address] Encrypted=uwIaFwmXW7qUbjD Uv6g%3EFJfqLario2meth%2Fg 1PFi7moKtbT9pYeVAwpfIw6Py SWLuQekJNA0rZlZLvnx44o293 9OM7QbkNtYFlMfWE6uv13%3D Not Available [facility] 02/10/2024 10:0 9:43 Problems Name Problem SNOMED Code Status Onset Date Resolution Date Notes Provider Name and Address Organization Details Recorded Time Pain of right shoulder joint 9351518749564 9100 Active 2023 Darrin Perkins PA-C [address], [place], [address], [facility] 4 14:45:02 Neck pain 66876079 Active 2023 Darrin Perkins PA-C [address], [place], [address], [facility] 4 14:45:39 Localized, primary osteoarthri tis of the shoulder region 169751197 Active 2023 Darrin Perkins PA-C [address], [place], [address], [facility] 4 15:09:44 Inflammatio n of sacroiliac joint 27630510 Active 2023 Beth randhawa PA-C [address], [place], [address], [facility] 4 13:48:44 Osteoarthri tis of right hip joint 7632300598529 07 [facility] 4 11:38:31 Problem Notes None recorded. Medical Equipment None Reported. Allergies No known drug allergies Medications Name Sig Start Date Stop Date Status Note LastModified by Organization Details LastModified Time Prescriptio n - New 10/28 completed [facility] 2023 Not Available Not Available Not Available [...] Not Available No t Available amoxicillin 875 mg-potbrandieiu m clavulanate 125 mg tablet TAKE 1 TABLET [...] Updated DateTime 10/06/2023 157.48 cm 26.9 kg/m2 24225.8 g Afshin Coy PA-C [address], [place], [address], [facility] 10/06/2023 08:44:18 Date Recorded Body height Body mass index (BMI) Body weight Provider Name and Address Organization Details Last Updated DateTime 10/29/2023 157.48 cm 26.9 kg/m2 09553.08 g EDEL GONZALEZ [facility] 10/29/2023 09:18:13 Date Recorded Body height Body mass index (BMI) Body weight Provider Name and Address Organization Details Last Updated DateTime 12/21/2023 157.48 cm 26.9 kg/m2 88782.08 g Darrin Perkins PA-C [address], [place], [address], [facility] 12/21/2023 14:44:19 Date Recorded Body height Body mass index (BMI) Body weight Provider Name and Address Organization Details Last Updated DateTime 01/04/2024 157.48 cm 26.9 kg/m2 75410.08 g HORTENCIA STEVENSON [facility] 01/04/2024 13:01:54 Date Recorded Body height Body mass index (BMI) Body weight Provider Name and Address Organization Details Last Updated DateTime 02/10/2024 157.48 cm 26.9 kg/m2 95276.08 g APRIL MCKENZIE [facility] 02/10/2024 10:01:10 Social History Question Answer Notes LastModified by Organizat ion Details LastModified Time Tobacco Smoking Status Never Smoker KAYLIA CARLOS da silva [place] - [place] [place] [facility] 10/29/2023 09:19:52 Have You Ever Been Counseled For Unhealthy Alcohol Use? No Information not available 10/29/2023 What Is Your Relationship Status? Single Information not available 10/29/2023 Sex: Unknown Functional Status Question Answer Note LastModified by Organizat ion Details LastModified Time How many times per week do you consume alcohol? 3-4 times per week Information not available 10/29/2023 Do you use any illicit or recreational drugs? No Information not available 10/29/2023 Do you or have you ever used any other forms of tobacco or nicotine? No Information not available 10/29/2023 What is your level of alcohol consumption? Occasional Information not available 10/29/2023 Mental Status None recorded. Family History Nothing Reported. Medical History Condition Response Allergies/Hayfever N Coronary Artery Disease N Anxiety/Depression Y Breathing or lung disorders N Emphysema N Nerve Disorders N Thyroid Problems N COPD N Pacemaker N Anemia N Kidney/Bladder Problems N Vascular Disease N Heart Trouble N Heart Attack ([place]) N Gastrointestinal Disease N Cholesterol N Diabetes [...] SNOMED-CT Code Diagnosis ICD10 Code Diagnosis Note [id number] MD Igor Reich [address] [place] [address] 08/31/2023 08:15:33 09/17/2023 10:09:48 Osteoarthritis of right hip joint 6262026801 15422 M16.11 [id number] CONSTANTIN Ingram [address] [place] [address] 09/14/2023 11:22:07 09/29/2023 12:13:36 Osteoarthritis of right hip joint 1389015586 66588 M16.11 [id number] SANJUANA Paz [address] [place] [address] 10/06/2023 08:35:18 10/06/2023 09:45:10 Aftercare 794483413 Z47.31 History of total replacement of right hip joint 3210166108 86726 Z96.783 [id number] SANJUANA Valderrama [address] [place] [address] 10/29/2023 09:02:07 11/22/2023 09:57:16 History of total replacement of right hip joint 9963738274 96317 Z96.641 Postoperative visit 1836 27630 Z48.89 Hip joint prosthesis present 139756876 Z96.457 [id number] SANJUANA Elizabeth [address] [place] [address] 12/21/2023 14:26:29 01/07/2024 16:02:39 Pain of right shoulder joint 7470839220 0078903 M25.511 Neck pain 97809670 M54.2 Localized, primary osteoarthritis of the shoulder region 091152522 M19.358 [id number] Beth Richmond PA-C [place] [address] [place] [address] 01/04/2024 12:45:47 01/28/2024 10:10:48 Pain of left hip joint 6568144208 67942 M25.552 Inflammati on of sacroiliac joint 47942197 M46.1 [id number] MD Igor Reich [address] [place] [address] 02/10/2024 09:12:24 03/06/2024 08:18:07 History of total replacement of right hip joint 7787285148 29028 Z96.641 Health Concerns Section Related Observation LastModified by Organization Detai ls LastModified Time None Recorded Concern Status LastModified by Organization Details LastModified Time None Recorded Advance Directives Directive None Recorded Payers Insurance Date Sequence Insurance Name Policy Number Policy Funes Covered Member ID Funes Member ID Guarantor Name 03/06/2024 1 [facility] (MEDICARE REPLACEMENT/A DVANTAGE - PPO) [id number] Destiny Oshea [id number] Destiny Oshea Notes Date Note Type Note Provider Name and Address Organization Details Recorded Time 10/06/2023 text/html I am seeing the patient today under the supervision of Leyla who was available but who did not see the patient. HPI: Patient returns follow-up 2 weeks postop right total hip replacement. Patient seems to be progressing well with therapy. Patient's pain seems to be controlled. Past family, medical, social history and review of systems has been reviewed, updated and is located in the patient s chart. Examination: No significant swelling warmth erythema about the right total hip. Incision is healing well. Range of motion of the right total hip: Flexion 90, internal 15, and external 15. Good strength about the right total hip. Peripheral, vascular, lymphatic examination, skin, neurological, coordination, reflexes, sensation are within normal limits. X-rays ordered, obtained and reviewed at [facility] 2 views of the right total hip [...] the total hip replacement. Afshin Coy PA-C [address] [place] [address], [address], [facility] - [place] [facility] 10/06/2023 09:22:51 10/29/2023 text/html I am seeing [...] reviewed, updated, and is located in the patient s chart. Examination: The patient is well appearing and in no apparent distress. Alert and oriented x3. Gait is antalgic on the right. Examination hip has a healing surgical incision. Appropriate postoperative edema, no erythema or drainage. Supple pain-free range of motion. Calf is soft and nontender bilaterally. 4+/5 strength of hip flexion and extension. X-rays ordered, obtained, and reviewed at [facility] today include an AP pelvis and lateral [...] are any complications. All questions were answered. iJ[employer] speech recognition order to delivery supervisor software was used to create portions of this document. An attempt at proofreading has been made to minimize errors. Please call for corrections. Cecily Jonas PA-C [address] [place] [address] [address], [place], [address], [facility] [place] [facility] 10/29/2023 10:08:36 12/21/2023 text/html I am seeing [...] by me and is located in the patient s chart. PHYSICAL EXAMINATION: The patient is well [...] ordered, obtained and independently reviewed today at [facility]. Four views of the right shoulder demonstrate [...] measures no longer provide quality of life. [employer] speech recognition order to delivery supervisor software was used to create portions of this document. An attempt at proofreading has been made to minimize errors. Please call for corrections. Darrin Perkins PA-C [address] [facility] [address], [place], [address], [facility] [place] 12/21/2023 15:10:35 01/04/2024 text/html I am seeing the patient today under the supervision of Dr. Minler who was available but who did not [...] September. Last year she was seen at [facility] and had an MRI of her lumbar spine which was independently reviewed in the [facility] system at [facility] at this time which showed only [...] reviewed, updated and is located in the patient s chart. EXAMINATION: Pain is easily reproducible to [...] visit note. This note was generated with [facility] speech recognition order to delivery supervisor dictation software. Please excuse any errors that may have been overlooked during review of this note. Sometimes, these errors may affect the content or meaning of a given sentence. Please call for corrections. Beth Richmond PA-C [address] [place] [address] [address] [facility], [place], [address], [facility] [place] [facility] 01/04/2024 13:58:28 OBGyn Episode No OBEpisode recorded.
[2025-01-03 07:44] LABS: Immunoglobulin A 337 mg/dL (70-320)
[2025-01-03 19:53] LABS: Transglutaminase Ab IgG <1.0 U/mL
== END 2025-01-02 10:57 | disposition home or self-care (01) ==
LOC: HO.LAB 10:56
PROVIDERS: PCP Internal Medicine; Visit Provider Internal Medicine
DX: R19.4 Change in bowel habit (principal); R19.7 Diarrhea, unspecified
CPT/HCPCS: 36415; 82784; 84443; 85025; 85652; 86140; 86231; 86258; 86364